=== PATIENT | male | born 1985 | race African-American/Black ===

== ENCOUNTER 2019-11-17 17:01 | Emergency (ER) | payer SELFPAY ==
--- NOTE | 2019-11-17 17:23 | Emergency Department Report ---
HPI - General Chief Complaint: Multiple Trauma Time Seen by Provider: 11/17/19 17:21 - HPI HPI: This is a 34-year-old male who presents to the emergency department with complaint of pain to the head, forehead, and neck, after a large branch from a tree he was cutting fell down and hit him in the head. The patient did have loss of consciousness for an unknown amount of time but he does not feel that it was very long. He denies any vision change, slurred speech, numbness or paresthesias, or any other neurological deficits. No past medical history. He has not taken anything for symptoms prior to presentation. There is a right forehead hematoma and some abrasions. Unknown last tetanus vaccination. ED Past Medical Hx - Past Medical History Previous Medical History?: No - Surgical History Past Surgical History?: No - Medications Home Medications: Home Medications Medication Instructions Recorded Confirmed Last Taken Type HYDROcodone/APAP 5-325 [[place] 1 each PO Q6HR PRN #10 tablet 11/17/19 Unknown Rx 5/325] ED Review of Systems ROS: Stated complaint: HIT IN HEAD WITH TREE BRANCH Other details as noted in HPI Comment: All other systems reviewed and negative Constitutional: denies: chills, fever Eyes: denies: eye pain, vision change ENT: denies: ear pain, throat pain Respiratory: denies: cough, shortness of breath Cardiovascular: denies: chest pain, palpitations Gastrointestinal: denies: abdominal pain, vomiting Musculoskeletal: other (neck pain). denies: back pain, arthralgia Skin: other (abrasions, hematoma). denies: rash Neurological: headache. denies: weakness, numbness, paresthesias Physical Exam - Physical Exam Vital Signs: Vital Signs 11/17/19 17:11 Temperature 99.6 F Pulse Rate 108 H Respiratory 20 Rate Blood Pressure 136/83 [Right] O2 Sat by Pulse 99 Oximetry Physical Exam: GENERAL: The patient is well-developed well-nourished. HENT: Normocephalic. Patient has moist mucous membranes. EYES: Extraocular motions are intact. No nystagmus. NECK: Supple. Trachea is midline. There is both midline and bilateral paraspinal tenderness to palpation. CHEST/LUNGS: Clear to auscultation. There is no respiratory distress noted. HEART/CARDIOVASCULAR: Regular. There is no tachycardia. ABDOMEN: Abdomen is soft, nontender. Patient has normal bowel sounds. SKIN: Skin is warm and dry. There is a non-expanding right sided forehead hematoma is about the size of half of a golf ball. There are some overlying abrasions. No current bleeding or signs/symptoms of infection. NEURO: The patient is awake, alert, and oriented. The patient is cooperative. The patient has no focal neurologic deficits. Normal speech. Cranial nerves II through XII grossly intact. MUSCULOSKELETAL: There is no tenderness or deformity. There is no limitation range of motion. ED Course Vital Signs 11/17/19 17:11 Temperature 99.6 F Pulse Rate 108 H Respiratory 20 Rate Blood Pressure 136/83 [Right] O2 Sat by Pulse 99 Oximetry ED Medical Decision Making - Radiology Data Radiology results: report reviewed CT cervical spine wo con INDICATION / CLINICAL INFORMATION: 34 years Male; trauma, pain. TECHNIQUE: Axial CT images of the cervical spine were obtained. Sagittal and coronal reformatted images were produced. All CT scans at this location are performed using CT dose reduction for ALARA by means of automated exposure control. COMPARISON: None available. FINDINGS: POST-SURGICAL CHANGES: None. ALIGNMENT: Normal cervical lordosis seen without significant scoliosis. VERTEBRAE: No signs of fracture. Vertebral bodies are grossly normal in height throughout. 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 INTRAVERTEBRAL DISCS:Disc spaces are fairly well-maintained throughout. However, mild disc disease is seen at various levels with no dominant herniation appreciated. No definitive signs of significant canal stenosis. PARASPINAL SOFT TISSUES: No significant abnormality. ADDITIONAL FINDINGS: None. IMPRESSION: 1. No signs of acute bony trauma to the cervical spine. CT head/brain wo con INDICATION / CLINICAL INFORMATION: 34 years Male; Trauma, head injury with LOC. TECHNIQUE: Routine CT head without contrast. All CT scans at this location are performed using CT dose reduction for ALARA by means of automated exposure control. COMPARISON: None. FINDINGS: BRAIN / INTRACRANIAL CONTENTS: No acute hemorrhage, mass effect, midline shift, hydrocephalus, or acute, large territorial infarct. No chronic infarct or atrophy appreciated. No significant white matter abnormality. CRANIOCERVICAL JUNCTION: Tonsillar ectopia seen without mass effect on the cervicomedullary junction. ORBITS: No significant abnormality of visualized orbits. SINUSES / MASTOIDS: No significant abnormality in the visualized paranasal sinuses or mastoid air cells. ADDITIONAL FINDINGS: Subcutaneous soft tissue swelling is seen in the right frontal region. No signs of underlying calvarial fracture appreciated. IMPRESSION: 1. No focal mass, intracranial hemorrhage, hydrocephalus, or acute, large territorial infarct. CT facial bones wo con INDICATION / CLINICAL INFORMATION: 34 years Male; facial trauma. TECHNIQUE: Thin cut axial images obtained. Sagittal and coronal reconstructions performed. All CT scans at this location are performed using CT dose reduction for ALARA by means of automated exposure control. COMPARISON: None available. FINDINGS: Soft tissue swelling is seen in the right frontal region. No signs of underlying calvarial fracture seen. Minimal mucosal thickening seen in the ethmoids. Mucosal thickening with chronic changes seen along the floor of both maxillary antra. Poor dentition noted. IMPRESSION: 1. No definitive signs of acute bony facial trauma. - Medical Decision Making This patient presents to the emergency department after he was hit in the head by a falling tree branch. Initially the patient did have loss of consciousness but he has been awake, alert, oriented since he has been in the emergency department. On examination he does not have any focal, motor or sensory defic its and his cranial nerves are intact. He does have a right-sided forehead non- expanding hematoma with overlying abrasions. A CT scan of the cervical spine, head and facial bones were all completed that did not show any acute processes. He has been given a tetanus vaccination booster and some pain medication. His vital signs have been reassuring including being afebrile. The patient has been seen ambulatory in the emergency department and both appears and feels stable. He has been instructed to follow-up with a primary care physician. He is also been given an outpatient referral for neurosurgery regarding his neck pain. He will return to the ER with any worsening of his symptoms or with any acute distress. Critical Care Time: No Critical care attestation.: If time is entered above; I have spent that time in minutes in the direct care of this critically ill patient, excluding procedure time. ED Disposition Clinical Impression: Closed head injury Qualifiers: Encounter type: initial encounter Qualified Code(s): S09.90XA - Unspecified i njury of head, initial encounter Accidentally struck by falling tree Qualifiers: Encounter type: initial encounter Qualified Code(s): W20.8XXA - Other cause of strike by thrown, projected or falling object, initial encounter Traumatic hematoma of forehead Qualifiers: Encounter type: initial encounter Qualified Code(s): S00.83XA - Contusion of other part of head, initial encounter Forehead abrasion Qualifiers: Encounter type: initial encounter Qualified Code(s): S00.81XA - Abrasion of other part of head, initial encounter Disposition: - TO HOME OR SELFCARE Is pt being admited?: No Condition: Stable Instructions: Minor Head Injury (ED), Contusion in Adults (ED), Abrasion (ED) Additional Instructions: Please follow-up with a primary care physician in the next few days. I am giving you a referral for a local neurosurgeon, Dr. Lopez, to follow-up regarding your neck pain. Return to the emergency department with any worsening of your symptoms or with any acute distress. Clean the abrasions with soap and water and then make sure it remains dry. Please make sure you are seen immediately with any signs or symptoms of infection such as increased pain, surrounding redness, increased swelling, development of fever or discharge of pus. You have been prescribed a medication that is sedating and therefore should not be taken prior to driving, working, and responsible for children and in no way should be mixed with alcohol of any quantity. Prescriptions: HYDROcodone/APAP 5-325 [[place] 5/325] 1 each PO Q6HR PRN #10 tablet PRN Reason: Pain Referrals: MARCO A LOPEZ MD [Staff Physician] - 3-5 Days Time of Disposition: 18:48
[2019-11-17] MEDS ORDERED: oxyCODONE /ACETAMINOPHEN 5-325MG TAB PO ONE (18:05)
--- NOTE | 2019-11-17 18:22 | Cat Scan Report ---
CT head/brain wo con INDICATION / CLINICAL INFORMATION: 34 years Male; Trauma, head injury with LOC. TECHNIQUE: Routine CT head without contrast. All CT scans at this location are performed using CT dos e reduction for ALARA by means of automated exposure control. COMPARISON: None. FINDINGS: BRAIN / INTRACRANIAL CONTENTS: No acute hemorrhage, mass effect, midline shift, hydrocephalus, or acu te, large territorial infarct. No chronic infarct or atrophy appreciated. No significant white matter abnormality. CRANIOCERVICAL JUNCTION: Tonsillar ectopia seen without mass effect on the cervicomedullary junction. ORBITS: No significant abnormality of visualized orbits. SINUSES / MASTOIDS: No significant abnormality in the visualized paranasal sinuses or mastoid air letty ls. ADDITIONAL FINDINGS: Subcutaneous soft tissue swelling is seen in the right frontal region. No signs of underlying calvarial fracture appreciated. IMPRESSION: 1. No focal mass, intracranial hemorrhage, hydrocephalus, or acute, large territorial infarct. Signer Name: Jimmie Shin MD, III Signed: 11/17/2019 6:18 PM Workstation Name: [id number]
--- NOTE | 2019-11-17 18:25 | Cat Scan Report ---
CT facial bones wo con INDICATION / CLINICAL INFORMATION: 34 years Male; facial trauma. TECHNIQUE: Thin cut axial images obtained. Sagittal and coronal reconstructions performed. All CT scans at this location are performed using CT dose reduction for ALARA by means of automated exposure control. COMPARISON: None available. FINDINGS: Soft tissue swelling is seen in the right frontal region. No signs of underlying calvarial fracture s een. Minimal mucosal thickening seen in the ethmoids. Mucosal thickening with chronic changes seen along the floor of both maxillary antra. Poor dentition noted. IMPRESSION: 1. No definitive signs of acute bony facial trauma. Signer Name: Jimmie Shin MD, III Signed: 11/17/2019 6:21 PM Workstation Name: [id number]
--- NOTE | 2019-11-17 18:27 | Cat Scan Report ---
CT cervical spine wo con INDICATION / CLINICAL INFORMATION: 34 years Male; trauma, pain. TECHNIQUE: Axial CT images of the cervical spine were obtained. Sagittal and coronal reformatted images were pr oduced. All CT scans at this location are performed using CT dose reduction for ALARA by means of aut omated exposure control. COMPARISON: None available. FINDINGS: POST-SURGICAL CHANGES: None. ALIGNMENT: Normal cervical lordosis seen without significant scoliosis. VERTEBRAE: No signs of fracture. Vertebral bodies are grossly normal in height throughout. 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 INTRAVERTEBRAL DISCS:Disc spaces are fairly well-maintained throughout. However, mild disc disease is seen at various levels with no dominant herniation appreciated. No definitive signs of significant c anal stenosis. PARASPINAL SOFT TISSUES: No significant abnormality. ADDITIONAL FINDINGS: None. IMPRESSION: 1. No signs of acute bony trauma to the cervical spine. Signer Name: Jimmie Shin MD, III Signed: 11/17/2019 6:23 PM Workstation Name: [id number]
[2019-11-17] MEDS ORDERED: DIPHtheria,PERTUSSIS(ACELL),TETANUS VACCINE/PF 0.5 ML VIAL IM ONE (18:43)
[2019-11-17 18:59] VITALS: BP 136/88
== END 2019-11-17 19:10 | disposition home or self-care (01) ==
LOC: ED 17:01
DX: S00.83XA Contusion of other part of head, initial encounter (principal); Z79.899 Other long term (current) drug therapy; W22.8XXA Striking against or struck by other objects, initial encounter; Y93.89 Activity, other specified; Y92.89 Other specified places as the place of occurrence of the external cause; Y99.8 Other external cause status
CPT/HCPCS: 70450; 70486; 72125; 90471; 90715

== ENCOUNTER 2020-07-18 09:32 | Inpatient (IN) | payer OTHER ==
--- NOTE | 2020-07-18 10:58 | XRay Report ---
CHEST PA AND LATERAL VIEWS INDICATION: chest pain. COMPARISON: None. FINDINGS: Support devices: None. Heart: Within normal limits. Lungs/Pleura: No acute pulmonary or pleural findings. IMPRESSION: 1. No acute findings. Signer Name: Haja Pendleton MD Signed: 07/18/2020 10:53 AM Workstation Name: [id number]
--- NOTE | 2020-07-18 11:01 | Event Note ---
ED Screening Note Date of service: 07/18/20 Time: 11:01 ED Screening Note: Patient complains of chest pain, dizziness, and shortness of breath x3 days + Cough Denies nausea vomiting or diarrhea or loss of taste/smell No recent known sick contacts This initial assessment/diagnostic orders/clinical plan/treatment(s) is/are subject to change based on patients health status, clinical progression and re- assessment by fellow clinical providers in the ED. Further treatment and workup at subsequent clinical providers discretion. Patient/guardian urged not to elope from the ED as their condition may be serious if not clinically assessed and managed. Initial orders include: Labs EKG
[2020-07-18] MEDS ORDERED: ASPIRIN 325 MG TAB PO ONE (11:38)
[2020-07-18 11:40] LABS: Basophils % (Auto) 0.2 % (0.0-1.8); Eosinophils # (Auto) 0.1 K/mm3 (0.0-0.4); Eosinophils % (Auto) 0.4 % (0.0-4.3); Hematocrit 45.2 % (35.5-45.6); Hemoglobin 15.5 gm/dl (11.8-15.2); Lymphocytes # (Auto) 2.1 K/mm3 (1.2-5.4); Lymphocytes % (Auto) 14.5 % (13.4-35.0); Mean Corpuscular HGB Conc 34 % (32-34); Mean Corpuscular Volume 88 fl (84-94); Monocytes # (Auto) 1.5 K/mm3 (0.0-0.8); Platelet Count 231 K/mm3 (140-440); Red Blood Count 5.14 M/mm3 (3.65-5.03); Red Cell Distribution Width 12.9 % (13.2-15.2)
--- NOTE | 2020-07-18 11:50 | Emergency Department Report ---
HPI - General Chief Complaint: Chest Pain Time Seen by Provider: 07/18/20 10:59 - HPI HPI: Room 25 The patient is a 35-year-old male present with a chief complaint of chest pain. Patient states for the past 2 days he has had left-sided chest pain described as a constant "holding" pain. Patient states his pain is associated with shortness of breath and nausea without vomiting. Patient denies diaphoresis. Patient admits to pleurisy but denies any recent flights or long car trips. Patient denies any coughs currently ED Past Medical Hx - Past Medical History Previous Medical History?: No - Surgical History Past Surgical History?: No - Family History Family history: no significant - Social History Smoking Status: Former Smoker (None x2 weeks) Substance Use Type: None - Medications Home Medications: Home Medications Medication Instructions Recorded Confirmed Last Taken Type HYDROcodone/APAP 5-325 [[place] 1 each PO Q6HR PRN #10 tablet 11/17/19 07/18/20 Unknown Rx 5/325] ED Review of Systems ROS: Stated complaint: HEADACHE, DIZZINESS, N/V Other details as noted in HPI Constitutional: denies: fever Eyes: denies: eye pain ENT: denies: throat pain Respiratory: cough, shortness of breath Cardiovascular: chest pain Endocrine: no symptoms reported Gastrointestinal: nausea. denies: vomiting Genitourinary: denies: dysuria Musculoskeletal: denies: back pain Skin: denies: lesions Neurological: denies: headache Physical Exam - Physical Exam Vital Signs: Vital Signs 07/18/20 10:24 Temperature 98.6 F Pulse Rate 102 H Respiratory 18 Rate Blood Pressure 123/83 O2 Sat by Pulse 95 Oximetry Physical Exam: GENERAL: The patient is well-developed well-nourished male lying on stretcher not appearing to be in acute distress. [] HEENT: Normocephalic. Atraumatic. Extraocular motions are intact. Patient has moist mucous membranes. NECK: Supple. Trachea midline CHEST/LUNGS: Clear to auscultation. There is no respiratory distress noted. HEART/CARDIOVASCULAR: Regular. There is no tachycardia. There is no gallop rub or murmur. ABDOMEN: Abdomen is soft, nontender. Patient has normal bowel sounds. There is no abdominal distention. SKIN: There is no rash. There is no edema. There is no diaphoresis. NEURO: The patient is awake, alert, and oriented. The patient is cooperative. The patient has no focal neurologic deficits. The patient has normal speech MUSCULOSKELETAL: There is no evidence of acute injury. ED Course Vital Signs 07/18/20 10:24 Temperature 98.6 F Pulse Rate 102 H Respiratory 18 Rate Blood Pressure 123/83 O2 Sat by Pulse 95 Oximetry - Consultations Consultation #1: 07/18/20 10:38 EKG sent to and discussed with automobile racer Dr. Diaz ED Medical Decision Making - Lab Data Result diagrams: 07/18/20 11:00 07/18/20 11:00 Laboratory Tests 07/18/20 07/18/20 07/18/20 11:00 11:00 11:03 WBC 14.8 H RBC 5.14 H Hgb 15.5 H Hct 45.2 MCV 88 MCH 30 MCHC 34 RDW 12.9 L Plt Count 231 Lymph % (Auto) 14.5 [place] % (Auto) 10.0 H Eos % (Auto) 0.4 Baso % (Auto) 0.2 Lymph # (Auto) 2.1 [place] # (Auto) 1.5 H Eos # (Auto) 0.1 Baso # (Auto) 0.0 Seg Neutrophils % 74.9 H Seg Neutrophils # 11.1 H Sodium 128 L Potassium 4.2 Chloride 90.9 L Carbon Dioxide 26 Anion Gap 15 BUN 17 Creatinine 0.7 L Estimated GFR > 60 BUN/Creatinine Ratio 24 Glucose 434 H Calcium 8.8 Total Bilirubin 0.90 AST 88 H ALT 116 H Alkaline Phosphatase 161 H Troponin T 1.660 H* NT-Pro-B Natriuret Pep 3611 H Total Protein 7.0 Albumin 3.4 L Albumin/Globulin Ratio 0.9 - EKG Data -: EKG Interpreted by Me EKG shows normal: sinus rhythm Rate: normal - EKG Data When compared to previous EKG there are: previous EKG unavailable Interpretation: nonspecific ST-T wave you - Radiology Data Radiology results: report reviewed (Chest x-ray), image reviewed (Chest x-ray) interpreted by me: Chest x-ray-no focal infiltrates, no pneumothorax. No foreign body seen [facility] [address] [place] [address] XRay Report Signed Patient: AMGO GILLETTE MR#: [id number] : 1985 Acct:[id number] Age/Sex: 35 / M ADM Date: 07/18/20 Loc: ED Attending Dr: Ordering Physician: ED MD MAURO Date of Service: 07/18/20 Procedure(s): XR chest routine 2V Accession Number(s): [id number] cc: ED MD MAURO Fluoro Time In Minutes: CHEST PA AND LATERAL VIEWS INDICATION: chest pain. COMPARISON: None. FINDINGS: S upport devices: None. Heart: Within normal limits. Lungs/Pleura: No acute pulmonary or pleural findings. IMPRESSION: 1. No acute findings. Signer Name: Haja Pendleton MD Signed: 07/18/2020 10:53 AM Workstation Name: [id number] Transcribed By: SW Dictated By: Haja Pendleton MD Electronically Authenticated By: Haja Pendleton MD Signed Date/Time: 07/18/20 105 DD/ 1053 TD/TT: Print Cancel - Differential Diagnosis ACS, pericarditis, GERD, PE, bronchitis Critical care attestation.: If time is entered above; I have spent that time in minutes in the direct care of this critically ill patient, excluding procedure time. ED Disposition Clinical Impression: Chest pain, Elevated troponin Disposition: -09 OP ADMIT IP TO THIS HOSP Is pt being admited?: Yes Does the pt Need Aspirin: Yes Condition: Fair Instructions: Nonspecific Chest Pain, Adult Referrals: PRIMARY CARE, [Primary Care Provider] - 3-5 Days Time of Disposition: 13:51 (Hospitalist notified (Dr. Parker))
[2020-07-18 11:55] LABS: Alanine Aminotransferase 116 units/L (7-56); Albumin 3.4 g/dL (3.9-5); Blood Urea Nitrogen 17 mg/dL (9-20); Calcium 8.8 mg/dL (8.4-10.2); Hemolysis Index 7
[2020-07-18 12:06] LABS: BUN/Creatinine Ratio 24
[2020-07-18] MEDS ORDERED: NITROGLYCERIN 2% OINT 1 GM TP ONE (12:23)
[2020-07-18] MEDS ORDERED: fentaNYL 100 MCG/2 ML INJ IV ONE (13:20)
[2020-07-18] MEDS ORDERED: ONDANSETRON 4 MG/2 ML INJ IV ONE (13:20)
[2020-07-18] MEDS ORDERED: ASPIRIN EC 325 MG TAB PO NR (13:32)
[2020-07-18] MEDS ORDERED: ACETAMINOPHEN 325 MG TAB PO PRN (13:51)
[2020-07-18] MEDS ORDERED: MORPHINE 2 MG/1 ML INJ IV PRN (13:51)
[2020-07-18] MEDS ORDERED: ONDANSETRON 4 MG/2 ML INJ IV PRN (13:51)
--- NOTE | 2020-07-18 13:55 | History and Physical Report ---
History of Present Illness Chief complaint: My chest is hurting History of present illness: 35 YO Male with no PMH presents to ED for evaluation. Pt reports " my chest has been hurting". Patient states that he had experienced pain in his chest over the past 2 days with persistent symptoms over the same timeframe. Patient states that pain is 5/10, constant, worsened with deep breathing and inspiration, not worsened with exertion, not relieved with rest. Patient transported to [facility] via private vehicle for further care and evaluation of the aforementioned symptoms. The patient was seen and evaluated in the emergency department. All lab and imaging studies reviewed. Patient underwent EKG which showed diffuse nonspecific ST changes as well as elevated troponin. Patient lab findings consistent with non-ST elevation TN. Patient also found to have symptoms consistent with diastolic CHF, hyponatremia, as well as systemic plantar response syndrome. Cardiology team consulted in ED. Patient denies fever, chills, chest pain, palpitation, productive cough, skin rash, recent ill contacts, or known exposure to COVID-19. No prior admission for review. No medication listed at time of admission for reconciliation. Patient is pending cardiac cath as per cardiology team. Past History Past Medical History: No medical history, other (Reviewed) Past Surgical History: No surgical history, Other (Reviewed) Social history: single. denies: smoking, alcohol abuse, prescription drug abuse Family history: hypertension Medications and Allergies Allergies Allergy/AdvReac Type Severity Reaction Status Date / Time No Known Allergies Allergy Verified 07/18/20 10:26 Home Medications Medication Instructions Recorded Confirmed Last Taken Type HYDROcodone/APAP 5-325 [[place] 1 each PO Q6HR PRN #10 tablet 11/17/19 07/18/20 Unknown Rx 5/325] Active Meds: Active Medications Acetaminophen (Acetaminophen 325 Mg Tab) 650 mg PO Q4H PRN PRN Reason: Pain MILD(1-3)/Fever >100.5/BRAR Aspirin (Aspirin Ec 325 Mg Tab) 325 mg PO ONCE NR Stop: 07/18/20 14:00 Ondansetron HCl (Ondansetron 4 Mg/2 Ml Inj) 4 mg IV Q8H PRN PRN Reason: Nausea And Vomiting Sodium Chloride (Sodium Chloride 0.9% 10 Ml Flush Syringe) 10 ml IV BID MARY Sodium Chloride (Sodium Chloride 0.9% 10 Ml Flush Syringe) 10 ml IV PRN PRN PRN Reason: LINE FLUSH Review of Systems Constitutional: no weight loss, no weight gain, no fever, no chills Ears, nose, mouth and throat: no ear pain, no ear discharge, no tinnitis, no decreased hearing Cardiovascular: chest pain, no orthopnea, no palpitations, no rapid/irregular heart beat, no edema Respiratory: no cough, no cough with sputum, no excessive sputum Gastrointestinal: no nausea, no vomiting, no diarrhea, no constipation Genitourinary Male: no hematuria, no flank pain, no discharge, no urinary frequency, no urinary hesitancy Rectal: no pain, no incontinence, no bleeding Musculoskeletal: no neck stiffness, no neck pain, no shooting arm pain, no arm numbness/tingling, no low back pain Integumentary: no rash, no pruritis, no redness, no sores, no wounds Neurological: no paralysis, no weakness, no parathesias, no numbness Psychiatric: no memory loss, no change in sleep habits, no sleep disturbances, no insomnia, no hypersomnia Endocrine: no cold intolerance, no heat intolerance, no polyphagia, no excessive thirst, no polydipsia Hematologic/Lymphatic: no easy bruising, no easy bleeding, no lymphadenopathy, no lymphedema Allergic/Immunologic: no urticaria, no allergic rhinitis, no persistent infections Exam - Constitutional Vitals: Temp Pulse Resp BP Pulse Ox 98.6 F 102 H 18 123/83 95 07/18/20 10:24 07/18/20 10:24 07/18/20 10:24 07/18/20 10:24 07/18/20 10:24 General appearance: Present: mild distress, obese - EENT Eyes: Present: PERRL ENT: hearing intact, clear oral mucosa - Neck Neck: Present: supple, normal ROM - Respiratory Respiratory effort: normal Respiratory: bilateral: CTA - Cardiovascular Heart Sounds: Present: S1 & S2. Absent: rub, click - Extremities Extremities: pulses symmetrical, No edema Peripheral Pulses: within normal limits - Abdominal General gastrointestinal: Present: soft, non-tender, non-distended, normal bowel sounds Male genitourinary: Present: normal - Integumentary Integumentary: Present: clear, warm, dry - Musculoskeletal Musculoskeletal: gait normal, strength equal bilaterally - Psychiatric Psychiatric: appropriate mood/affect, intact judgment & insight - Neurologic Neurologic: CNII-XII intact, moves all extremities HEART Score - HEART Score Troponin: Troponin T 1.660 ng/mL (0.00-0.029) H* 07/18/20 11:00 Results - Labs CBC & Chem 7: 07/18/20 13:45 07/18/20 13:45 Labs: Abnormal lab results 07/18/20 07/18/20 07/18/20 Range/Units 11:00 11:00 11:03 WBC 14.8 H (4.5-11.0) K/mm3 RBC 5.14 H (3.65-5.03) M/mm3 Hgb 15.5 H (11.8-15.2) gm/dl RDW 12.9 L (13.2-15.2) % [place] % (Auto) 10.0 H (0.0-7.3) % [place] # (Auto) 1.5 H (0.0-0.8) K/mm3 Seg Neutrophils % 74.9 H (40.0-70.0) % Seg Neutrophils # 11.1 H (1.8-7.7) K/mm3 Sodium 128 L (137-145) mmol/L Chloride 90.9 L (98-107) mmol/L Creatinine 0.7 L (0.8-1.3) mg/dL Glucose 434 H (75-100) mg/dL AST 88 H (5-40) units/L ALT 116 H (7-56) units/L Alkaline Phosphatase 161 H (35-129) units/L Troponin T 1.660 H* (0.00-0.029) ng/mL NT-Pro-B Natriuret Pep 3611 H (0-450) pg/mL Albumin 3.4 L (3.9-5) g/dL Assessment and Plan - Patient Problems (1) Non-STEMI (non-ST elevated myocardial infarction) Current Visit: Yes Status: Acute Plan to address problem: Patient initiated on heparin drip in the emergency department, team consulted, patient pending cardiac catheterization as per cardiology team. (2) Diastolic CHF Current Visit: Yes Status: Acute Qualifiers: Heart failure chronicity: acute Qualified Code(s): I50.31 - Acute diastolic (congestive) heart failure Plan to address problem: Strict I/O, monitor urine output every shift, daily weight, afterload reduction, cardiology team consulted. Further care and evaluation as per cardiology team. (3) Hyponatremia Current Visit: Yes Status: Acute Plan to address problem: IV fluid resuscitation therapy as clinically indicated, supportive care, BMP, repeat BMP in a.m. (4) Elevated liver function tests Current Visit: Yes Status: Acute Plan to address problem: Hepatitis panel, supportive care, (5) Systemic inflammatory response syndrome Current Visit: Yes Status: Acute Plan to address problem: Supportive care, CBC, CMP, empiric IV antibiotic therapy x1 dose, repeat CBC in a.m. (6) Chest pain Current Visit: Yes Status: Acute Plan to address problem: Serial cardiac enzymes, EKG, remote telemetry, cardiology team consulted. (7) DVT prophylaxis Current Visit: Yes Status: Acute Plan to address problem: SCD to bilateral lower extremities while in bed, continue therapeutic anticoagulation.
--- NOTE | 2020-07-18 14:05 | Consultation ---
History of Present Illness Consult date: 07/18/20 Consult reason: chest pain History of present illness: This patient is a 35-year-old male with no significant history not followed by primary care. Previously unknown to our practice. Patient presents to [facility] emergency room complaining of chest pain x2 days. Chest pain is described as "holding" pain worse with inspiration no palliative factors centered over the left chest, not exacerbated with palpation. Patient denies any dizziness or weakness shortness of breath, abdominal pain, nausea vomiting diarrhea, recent illness or exposures. Twelve-lead EKG shows diffuse ST changes nonspecific. Troponins are elevated: 1.6x1. Preliminary echo results indicate ejection fraction of 30%. BUN is noted to be elevated on admission. D-dimer is elevated. Chest x-ray reviewed no acute findings. Patient is not followed by cardiology or primary care. Patient denies any previous history of chest pain heart attack stroke hypertension diabetes or any other known pathologies. Patient takes no daily medicines. Patient states he recently quit smoking within the last year. Previously he has been 1 pack a day for approximately the last 20 years. 20 pack years. Patient denies any EtOH or other substance use. No prior cardiac echo or ischemic evaluations are available for comparison. Patient denies any previous surgeries or hospitalizations. Past History Past Medical History: other (See HPI) Medications and Allergies Allergies Allergy/AdvReac Type Severity Reaction Status Date / Time No Known Allergies Allergy Verified 07/18/20 10:26 Home Medications Medication Instructions Recorded Confirmed Last Taken Type HYDROcodone/APAP 5-325 [[place] 1 each PO Q6HR PRN #10 tablet 11/17/19 07/18/20 Unknown Rx 5/325] Active Meds: Active Medications Acetaminophen (Acetaminophen 325 Mg Tab) 650 mg PO Q4H PRN PRN Reason: Pain MILD(1-3)/Fever >100.5/BRAR Morphine Sulfate (Morphine 2 Mg/1 Ml Inj) 1 mg IV Q6H PRN PRN Reason: Pain, Moderate (4-6) Ondansetron HCl (Ondansetron 4 Mg/2 Ml Inj) 4 mg IV Q8H PRN PRN Reason: Nausea And Vomiting Sodium Chloride (Sodium Chloride 0.9% 10 Ml Flush Syringe) 10 ml IV BID MARY Sodium Chloride (Sodium Chloride 0.9% 10 Ml Flush Syringe) 10 ml IV PRN PRN PRN Reason: LINE FLUSH Review of Systems Constitutional: weakness, no weight loss, no weight gain, no fever, no chills, no sweats Ears, nose, mouth and throat: no ear pain, no ear discharge, no nose pain, no nasal congestion, no nasal discharge Cardiovascular: chest pain, no orthopnea, no palpitations, no rapid/irregular heart beat, no edema, no syncope Respiratory: shortness of breath Gastrointestinal: no abdominal pain, no nausea, no vomiting, no diarrhea Genitourinary Male: no flank pain Musculoskeletal: no neck stiffness, no neck pain, no shooting arm pain, no arm numbness/tingling, no low back pain, no shooting leg pain Integumentary: no rash, no pruritis, no redness, no sores, no wounds, no jaundice Neurological: no head injury, no paralysis, no weakness, no parathesias, no numbness, no tingling, no seizures, no syncope Psychiatric: no anxiety Endocrine: no cold intolerance, no heat intolerance Hematologic/Lymphatic: no easy bruising, no easy bleeding Allergic/Immunologic: no urticaria Physical Examination Last Vital Signs Temp 98.6 F 07/18/20 10:24 Pulse 102 H 07/18/20 10:24 Resp 18 07/18/20 10:24 BP 123/83 07/18/20 10:24 Pulse Ox 95 07/18/20 10:24 General appearance: mild distress HEENT: Positive: PERRL, Normocephaly, Mucus Membranes Moist Neck: Positive: neck supple, trachea midline Cardiac: Positive: Reg Rate and Rhythm, irregularly irregular, S1/S2 Lungs: Positive: Normal Exam, clear to auscultation, Normal Breath Sounds Results 07/18/20 13:45 07/18/20 13:45 Cardiac Enzymes 07/18/20 Range/Units 11:00 AST 88 H (5-40) units/L CBC 07/18/20 Range/Units 11:00 WBC 14.8 H (4.5-11.0) K/mm3 RBC 5.14 H (3.65-5.03) M/mm3 Hgb 15.5 H (11.8-15.2) gm/dl Hct 45.2 (35.5-45.6) % Plt Count 231 (140-440) K/mm3 Lymph # (Auto) 2.1 (1.2-5.4) K/mm3 [place] # (Auto) 1.5 H (0.0-0.8) K/mm3 Eos # (Auto) 0.1 (0.0-0.4) K/mm3 Baso # (Auto) 0.0 (0.0-0.1) K/mm3 Comprehensive Metabolic Panel 07/18/20 Range/Units 11:00 Sodium 128 L (137-145) mmol/L Potassium 4.2 (3.6-5.0) mmol/L Chloride 90.9 L (98-107) mmol/L Carbon Dioxide 26 (22-30) mmol/L BUN 17 (9-20) mg/dL Creatinine 0.7 L (0.8-1.3) mg/dL Glucose 434 H (75-100) mg/dL Calcium 8.8 (8.4-10.2) mg/dL AST 88 H (5-40) units/L ALT 116 H (7-56) units/L Alkaline Phosphatase 161 H (35-129) units/L Total Protein 7.0 (6.3-8.2) g/dL Albumin 3.4 L (3.9-5) g/dL - Imaging and Cardiology Echo: pending Cardiac cath: pending EKG: report reviewed, image reviewed EKG interpretations - Telemetry EKG Rhythm: Sinus Rhythm - EKG Sinus rhythms and dysrhythmias: sinus rhythm Assessment and Plan NSTEMI suspect type I Give aspirin 325 mg once p.o. Critical lab value: elevated INR of 17. Renal and liver indices are normal. No heparin drip at this time. Stat redraw to confirm value has been ordered. If normal will resume heparin drip. If INR remains elevated we will not proceed with LHC this evening. Patient will be scheduled for LHC this evening. Procedure discussed with patient. Risk and potential benefits reviewed. Patient is agreeable to proceed at this time. N.p.o. now. Plan discussed with ER provider. Cardiomyopathy Preliminary echocardiogram results show reduced EF estimated 30% with inferior wall hypokinesis. Official read pending. Patient would benefit from beta-louise, MASTER inhibitor/ARB in the setting of new cardiomyopathy with reduced ejection fraction. We will plan to start these medications once LHC is complete. Heart failure reduced ejection fraction BNP is noted to be elevated on admission. Echo read is pending. No extremity edema is noted. Breath sounds are clear to auscultation. Continue to monitor labs. Elevated D-dimer Pulmonary thromboembolism cannot be excluded via PERC rule. Elevated D-dimer with tachycardia and chest pain may be indication for follow-up testing (CTA chest/VQ scan) pending [facility] results. No AC in setting of elevated INR. DVT prophylaxis No anticoagulation in setting of elevated INR This patient was seen in conjunction with Dr. Diaz who agrees with this assessment and plan of care - Patient Problems (1) Non-STEMI (non-ST elevated myocardial infarction) Current Visit: Yes Status: Acute (2) Cardiomyopathy Current Visit: Yes Status: Acute (3) HFrEF (heart failure with reduced ejection fraction) Current Visit: Yes Status: Acute (4) DVT prophylaxis Current Visit: Yes Status: Acute (5) History of tobacco use Current Visit: Yes Status: Chronic
[2020-07-18] MEDS ORDERED: HEPARIN 10,000 UNITS/10 ML VIAL IV ONE (14:12)
[2020-07-18 14:24] LABS: Basophils # (Auto) 0.1 K/mm3 (0.0-0.1); Basophils % (Auto) 0.3 % (0.0-1.8); Eosinophils # (Auto) 0.1 K/mm3 (0.0-0.4); Eosinophils % (Auto) 0.6 % (0.0-4.3); Hematocrit 43.9 % (35.5-45.6); Hemoglobin 15.6 gm/dl (11.8-15.2); Lymphocytes # (Auto) 1.9 K/mm3 (1.2-5.4); Lymphocytes % (Auto) 11.8 % (13.4-35.0); Mean Corpuscular HGB Conc 35 % (32-34); Mean Corpuscular Volume 88 fl (84-94); Monocytes # (Auto) 1.7 K/mm3 (0.0-0.8); Monocytes % (Auto) 10.7 % (0.0-7.3); Platelet Count 222 K/mm3 (140-440); Red Blood Count 5.02 M/mm3 (3.65-5.03); Red Cell Distribution Width 12.8 % (13.2-15.2)
[2020-07-18 14:44] LABS: Blood Urea Nitrogen 18 mg/dL (9-20); Calcium 8.8 mg/dL (8.4-10.2); Hemolysis Index 6
[2020-07-18 14:56] LABS: INR > 17.00 (0.87-1.13)
[2020-07-18] MEDS ORDERED: HEPARIN/ 0.45% NACL DRIP 25,000 UNIT/500 ML BAG IV SCH (15:00)
[2020-07-18 15:42] LABS: Chol/HDL Ratio 1.88 %; HDL Cholesterol 71 mg/dL (40-59); LDL Cholesterol,Direct 54 mg/dL (50-130)
[2020-07-18 16:01] LABS: BUN/Creatinine Ratio 26
[2020-07-18 16:18] LABS: INR 1.15 (0.87-1.13)
[2020-07-18] MEDS ORDERED: MIDAZOLAM 2 MG/2 ML INJ ONE (16:22)
[2020-07-18] MEDS ORDERED: HEPARIN/NS 5000 UNIT/500ML 1,000 ML IR ONE (16:22)
[2020-07-18] MEDS ORDERED: fentaNYL 100 MCG/2 ML INJ ONE (16:23)
[2020-07-18] MEDS ORDERED: LIDOCAINE (2%) 20 MG/1 ML VIAL 20 ML MDV INFILTRATI ONE (16:24)
[2020-07-18] MEDS ORDERED: NITROGLYCERIN SYRINGE 3 ML ONE (16:24)
[2020-07-18] MEDS ORDERED: VERAPAMIL 5 MG/2 ML INJ ONE (16:24)
[2020-07-18] MEDS ORDERED: SODIUM CHLORIDE 0.9% 500 ML 500 ML ONE (16:43)
[2020-07-18 16:46] LABS: Albumin 3.5 g/dL (3.9-5); Bilirubin,Direct 0.2 mg/dL (0-0.2)
[2020-07-18] MEDS ORDERED: METOPROLOL TARTRATE 5 MG/5 ML INJ IV ONE (17:01)
[2020-07-18] MEDS: HEPARIN 10,000 UNITS/10 ML VIAL ONE ×2 (17:05→17:22)
[2020-07-18] MEDS ORDERED: NITROGLYCERIN 600 MCG/3 ML SYRINGE ART-SHEATH ONE (17:05)
[2020-07-18] MEDS: PHENYLEPHRINE/NS 1,000 MCG/10 ML SYRINGE (OR USE) IV ONE ×2 (17:12→17:30)
[2020-07-18] MEDS ORDERED: HEPARIN 10,000 UNITS/10 ML VIAL ONE (17:26)
[2020-07-18] MEDS ORDERED: NITROGLYCERIN 600 MCG/3 ML SYRINGE INTRA-CORO ONE (17:26)
[2020-07-18] MEDS ORDERED: ALUM-MAG HYDROXIDE-SIMETHICONE 200-200-20MG/5ML ORAL LIQD 30 ML ONE (17:34)
[2020-07-18] MEDS ORDERED: CLOPIDOGREL 300 MG TAB ONE (17:34)
[2020-07-18] MEDS: METOPROLOL TARTRATE 25 MG TAB PO SCH ×2 (20:53→22:00)
[2020-07-18] MEDS ORDERED: METOPROLOL TARTRATE 50 MG TAB PO SCH (22:00)
--- NOTE | 2020-07-18 22:25 | Cardiac Catherization Report ---
DATE OF SERVICE: 07/18/2020 PROCEDURE: Left heart catheterization, percutaneous coronary intervention and intravascular ultrasound done on 07/18/2020 CLINICAL INFORMATION: This is a 35-year-old male with history of smoking, presents with two days of chest pain with deep inspiration. EKG showed biphasic T waves in the inferior leads. Abnormal troponin. Echocardiogram shows moderate to severe LV dysfunction with hypokinesis of the inferior wall. The patient was brought to the catholic priest. The patient was done with moderate sedation started 1703, finished at 1740 which is 37 minutes of moderate sedation. DESCRIPTION OF PROCEDURE: Procedure was done via the right radial artery, sterile technique, local anesthesia. A 6 [place] radial sheath was inserted. Left system, engaged with an AL1. Left main is a large vena cava was patent with mild luminal irregularities. LAD is a small to medium caliber vessel proximally was patent with mild luminal irregularities. Diagonal 1 is a small caliber vessel was patent. Then, diagonal 2 is a small caliber vessel, patent with mild luminal irregularities, but mid to distal has diffuse disease, 50% of a small caliber vessel. Diagonal 3 is a small caliber was patent. Circumflex proximally medium caliber patent with mild luminal irregularitis, then goes into a small to medium caliber OM1 that has diffuse disease with areas of stenosis around 20-30% after OM1, the circumflex has a 50% lesion and then goes into a small OM2 that has a proximal 95% less than 2 mm vessel. RCA engaged with JR4 catheter. It is a dominant vessel, diffusely diseased proximally, mid 30%-40%, mid focal 95%, distal 30%-40%, small long PDA and PLV diffuse disease. There is a 50-60%. LV gram done in BIJAL and CARRILLO shows moderate LV dysfunction, EF 35% with inferior wall hypokinesis. LVEDP 21 mmhg, LV is 124, aortic is 123/80, no gradient across the aortic valve on pullback. 1. Percutaneous coronary intervention RCA engaged with a JR4 guiding catheter crossed with distal PDA with a short [place] wire. 2. Predilated with 2.5 x 12 balloon x2 inflations at 12 atmospheres. 3. Intravascular ultrasound showed diffuse disease from proximally and distally with a reference vessel of 3.5-4.0 mm in the mid section. 4. Stent to the mid section with a drug-eluting Resolute [place] 3.5 x 22 mm inflated at 15 atmospheres. Excellent angiographic good stent apposition and expansion noted. No dissection or perforation noted. Improved flow and size in the distal vessels. 5. Remove coronary wire. Multiple angiograms and MY 3 flow reduced stenois 90% down to 0%. 6. 6-[place] guiding catheter, taken over a guidewire. A 6-[place] radial sheath was discontinued. Radial band applied. No hematoma. No bleeding. SUMMARY: 1. Successful PCI of the mid RCA with a drug-eluting Resolute [place] 3.5 x 22. RCA proximal 30%-40%, distal 30%-40%, small PDA and PLV with long vessels. There is diffuse disease of 50%. 2. Left main, patent. Mild luminal irregularities. LAD proximal patent, mild luminal irregularities. Diagonal 1 mild luminal irregularitis, small vessesl. Diagonal 2 small vessel with mild luminal irregularities. Mid to distal LAD diffuse disease, 50-60%. Diagonal 3 small caliber vessel, patent with mild luminal irregularities. Circumflex is patent, goes into an OM1 small to medium caliber vessel that has mid 30%, but patent with mild luminal irregularities.. Circumflex after OM1 has a 50% lesion and then OM2 is a small vessel, proximal 95% with moderate LV dysfunction, EF 35% with inferior wall hypokinesis. The patient was loaded with Plavix, medical therapy. Discussed this in detail with the patient and the patient's family. TID: [id number] RECEIPT: [id number] LEILA/MAULIK
[2020-07-19 05:33] LABS: Blood Urea Nitrogen 19 mg/dL (9-20); Calcium 8.4 mg/dL (8.4-10.2); Hemolysis Index 5
[2020-07-19 05:48] LABS: BUN/Creatinine Ratio 27
[2020-07-19] MEDS ORDERED: DEXTROSE 50% IN WATER (25GM) 50 ML SYRINGE IV PRN (08:30)
--- NOTE | 2020-07-19 10:29 | Progress Note ---
Assessment and Plan Assessment and plan: #NSTEMI Status post left heart catheterization with stenting of the RCA Continue aspirin and Plavix Statins Metoprolol Cardiology recommendations appreciated #Hyperglycemia Denies any history of diabetes Check hemoglobin A1c Started on Lantus and lispro Needs primary care follow-up at discharge #Elevated liver function tests Monitor LFTs Check CMP in a.m. #Hyponatremia Likely pseudohyponatremia due to negative blood glucose. Could also be due to fluid overload This seems to be improving so we will continue to monitor #HFrEF Continue metoprolol, ACEI Aldactone Cardiology follow-up at discharge DVT prophylaxis-Heparin products History Interval history: 35 YO Male with no PMH presents to ED for evaluation. Pt reports " my chest has been hurting". Patient states that he had experienced pain in his chest over the past 2 days with persistent symptoms over the same timeframe. Patient states that pain is 5/10, constant, worsened with deep breathing and inspiration, not worsened with exertion, not relieved with rest. Patient transported to [facility] via private vehicle for further care and evaluation of the aforementioned symptoms. The patient was seen and evaluated in the emergency department. All lab and imaging studies reviewed. Patient underwent EKG which showed diffuse nonspecific ST changes as well as elevated troponin. Patient lab findings consistent with non-ST elevation [place]. Patient also found to have sym ptoms consistent with diastolic CHF, hyponatremia, as well as systemic plantar response syndrome. Cardiology team consulted in ED. Patient denies fever, chills, chest pain, palpitation, productive cough, skin rash, recent ill contacts, or known exposure to COVID-19. No prior admission for review. No medication listed at time of admission for reconciliation. Patient is pending cardiac cath as per cardiology team. Hospital course Patient left heart catheterization he had PCI of the mid RCA with drug-eluting stents. 07/19. Patient is now on aspirin and Plavix. 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 Patient seen and examined at bedside this morning, he denies any chest pain. He feels great. Reviewed his vitals overnight. Noted to be hypoxic at night. Suspect patient has TSERING. He will be referred to pulmonology for sleep study Hospitalist Physical - Physical exam Narrative exam: VITAL SIGNS: Reviewed. GENERAL: Awake HEAD: No signs of head trauma. EYES: Pupils are equal. Extraocular motions intact. MOUTH: Oropharynx is normal. NECK: No adenopathy, no JVD. CHEST: Chest with diminished breath sounds bilaterally. No wheezes, rales, or rhonchi. CARDIAC: normal S1 and S2, without murmurs, gallops, or rubs. ABDOMEN: Soft, non tender and non distended. No rebound or guarding, and no masses palpated. Bowel Sounds normal. MUSCULOSKELETAL: No edema NEUROLOGIC EXAM: Alert and oriented x3. No focal neurologic deficits SKIN: No obvious lesions - Constitutional Vitals: Temp Pulse Resp BP Pulse Ox 99.4 F 107 H 18 107/63 82 L 07/19/20 03:27 07/19/20 03:24 07/19/20 03:27 07/19/20 03:27 07/19/20 03:24 HEART Score - HEART Score Troponin: Troponin T 1.550 ng/mL (0.00-0.029) H* 07/19/20 04:29 Results - Labs CBC & Chem 7: 07/18/20 13:45 07/19/20 04:29 Labs: Laboratory Last Values WBC 15.9 K/mm3 (4.5-11.0) H 07/18/20 13:45 RBC 5.02 M/mm3 (3.65-5.03) 07/18/20 13:45 Hgb 15.6 gm/dl (11.8-15.2) H 07/18/20 13:45 Hct 43.9 % (35.5-45.6) 07/18/20 13:45 MCV 88 fl (84-94) 07/18/20 13:45 MCH 31 pg (28-32) 07/18/20 13:45 MCHC 35 % (32-34) H 07/18/20 13:45 RDW 12.8 % (13.2-15.2) L 07/18/20 13:45 Plt Count 222 K/mm3 (140-440) 07/18/20 13:45 Lymph % (Auto) 11.8 % (13.4-35.0) L 07/18/20 13:45 [place] % (Auto) 10.7 % (0.0-7.3) H 07/18/20 13:45 Eos % (Auto) 0.6 % (0.0-4.3) 07/18/20 13:45 Baso % (Auto) 0.3 % (0.0-1.8) 07/18/20 13:45 Lymph # (Auto) 1.9 K/mm3 (1.2-5.4) 07/18/20 13:45 [place] # (Auto) 1.7 K/mm3 (0.0-0.8) H 07/18/20 13:45 Eos # (Auto) 0.1 K/mm3 (0.0-0.4) 07/18/20 13:45 Baso # (Auto) 0.1 K/mm3 (0.0-0.1) 07/18/20 13:45 Seg Neutrophils % 76.6 % (40.0-70.0) H 07/18/20 13:45 Seg Neutrophils # 12.2 K/mm3 (1.8-7.7) H 07/18/20 13:45 PT 14.5 Sec. (12.2-14.9) 07/18/20 15:15 INR 1.15 (0.87-1.13) H 07/18/20 15:15 D-Dimer 379.1 ng/mlDDU (0-234) H 07/18/20 13:45 Sodium 130 mmol/L (137-145) L 07/19/20 04:29 Potassium 4.2 mmol/L (3.6-5.0) 07/19/20 04:29 Chloride 93.1 mmol/L (98-107) L 07/19/20 04:29 Carbon Dioxide 23 mmol/L (22-30) 07/19/20 04:29 Anion Gap 18 mmol/L 07/19/20 04:29 BUN 19 mg/dL (9-20) 07/19/20 04:29 Creatinine 0.7 mg/dL (0.8-1.3) L 07/19/20 04:29 Estimated GFR > 60 ml/min 07/19/20 04:29 BUN/Creatinine Ratio 27 % 07/19/20 04:29 Glucose 329 mg/dL (75-100) H 07/19/20 04:29 Calcium 8.4 mg/dL (8.4-10.2) 07/19/20 04:29 Total Bilirubin 0.60 mg/dL (0.1-1.2) 07/18/20 15:15 Direct Bilirubin 0.2 mg/dL (0-0.2) 07/18/20 15:15 Indirect Bilirubin 0.4 mg/dL 07/18/20 15:15 AST 73 units/L (5-40) H 07/18/20 15:15 ALT 104 units/L (7-56) H 07/18/20 15:15 Alkaline Phosphatase 166 units/L (35-129) H 07/18/20 15:15 Troponin T 1.550 ng/mL (0.00-0.029) H* 07/19/20 04:29 NT-Pro-B Natriuret Pep 3611 pg/mL (0-450) H 07/18/20 11:03 Total Protein 6.2 g/dL (6.3-8.2) L 07/18/20 15:15 Albumin 3.5 g/dL (3.9-5) L 07/18/20 15:15 Albumin/Globulin Ratio 1.3 % 07/18/20 15:15 Triglycerides 119 mg/dL (2-149) 07/18/20 11:00 Cholesterol 134 mg/dL (50-199) 07/18/20 11:00 LDL Cholesterol Direct 54 mg/dL (50-130) 07/18/20 11:00 HDL Cholesterol 71 mg/dL (40-59) H 07/18/20 11:00 Cholesterol/HDL Ratio 1.88 % 07/18/20 11:00 [place]/IV: Voiding Method Toilet Active Medications - Current Medications Current Medications: Generic Name Dose Route Start Last Admin Trade Name Freq PRN Reason Stop Dose Admin Acetaminophen 650 mg 07/18/20 13:51 07/18/20 20:53 Acetaminophen 325 Mg Tab PO 650 mg Q4H PRN Administration Pain MILD(1-3)/Fever >100.5/BRAR Aspirin 81 mg 07/19/20 10:00 Aspirin 81 Mg Tab Chew PO QDAY [facility] Atorvastatin Calcium 20 mg 07/19/20 22:00 Atorvastatin 20 Mg Tab PO QHS [facility] Clopidogrel Bisulfate 75 mg 07/19/20 10:00 Clopidogrel 75 Mg Tab PO QDAY [facility] Dextrose 50 ml 07/19/20 08:30 Dextrose 50% In Water (25gm) 50 Ml Syringe IV Q30MIN PRN Hypoglycemia Protocol Insulin Glargine 6 units 07/20/20 09:00 Insulin Glargine 100 Units/Ml SUB-Q QAMDIAB [facility] Insulin Human Lispro 0 unit 07/19/20 08:30 Insulin Lispro 100 Unit/Ml SUB-Q ACHS [facility] Protocol Lisinopril 2.5 mg 07/19/20 10:00 Lisinopril 5 Mg Tab PO QDAY [facility] Metoprolol Succinate 25 mg 07/19/20 10:00 Metoprolol Succinate Xl 25 Mg Tab PO QDAY [facility] Morphine Sulfate 1 mg 07/18/20 13:51 Morphine 2 Mg/1 Ml Inj IV Q6H PRN Pain, Moderate (4-6) Ondansetron HCl 4 mg 07/18/20 13:51 Ondansetron 4 Mg/2 Ml Inj IV Q8H PRN Nausea And Vomiting Sodium Chloride 10 ml 07/18/20 22:00 07/19/20 06:27 Sodium Chloride 0.9% 10 Ml Flush Syringe IV Not Given BID [facility] Sodium Chloride 10 ml 07/18/20 13:51 Sodium Chloride 0.9% 10 Ml Flush Syringe IV PRN PRN LINE FLUSH Spironolactone 25 mg 07/19/20 10:00 Spironolactone 25 Mg Tab PO QDAY [facility]
--- NOTE | 2020-07-19 10:29 | Progress Note ---
Assessment and Plan Continue ASA, Plavix, & statin. Will convert PO Lopressor to Toprol 25mg daily. Continue ACEi and Aldactone as well. Will defer to Primary for optimization of BG. Otherwise stable cardiac status. Follow-up with Dr. Diaz in our [place] office on 07/23/2020 @ 10am ([phone]). Pt seen in conjunction with Dr. Diaz, who agrees with the assessment and plan of care. - Patient Problems (1) Non-STEMI (non-ST elevated myocardial infarction) Current Visit: Yes Status: Acute (2) CAD (coronary artery disease), [place] coronary artery Current Visit: Yes Status: Chronic Qualifiers: [place] vs. transplanted heart: [place] heart (3) Stented coronary artery Current Visit: Yes Status: Chronic (4) Ischemic cardiomyopathy Current Visit: Yes Status: Chronic (5) Chronic HFrEF (heart failure with reduced ejection fraction) Current Visit: Yes Status: Acute (6) Leukocytosis Current Visit: Yes Status: Acute (7) Hyponatremia Current Visit: Yes Status: Acute (8) Elevated LFTs Current Visit: Yes Status: Acute (9) HTN (hypertension) Current Visit: Yes Status: Chronic Qualifiers: Hypertension type: essential hypertension Qualified Code(s): I10 - Essential (primary) hypertension (10) HLD (hyperlipidemia) Current Visit: Yes Status: Chronic Qualifiers: Hyperlipidemia type: mixed hyperlipidemia Qualified Code(s): E78.2 - Mixed hyperlipidemia (11) DM2 (diabetes mellitus, type 2) Current Visit: Yes Status: Suspected (12) History of tobacco use Current Visit: Yes Status: Chronic (13) TSERING (obstructive sleep apnea) Current Visit: Yes Status: Suspected Subjective Date of service: 07/19/20 Principal diagnosis: NSTEMI, S/p PCI Interval history: Sitting up comfortably in bed. Denies chest pain, SOB, or any additional cardiac complaints. Tele reviewed - SR w/PACs 70-80s, no events. Objective Last Vital Signs Temp 99.4 F 07/19/20 03:27 Pulse 107 H 07/19/20 03:24 Resp 18 07/19/20 03:27 BP 107/63 07/19/20 03:27 Pulse Ox 82 L 07/19/20 03:24 - Physical Examination General: No Apparent Distress HEENT: Positive: EOMI, Normocephaly, Mucus Membranes Moist Neck: Positive: neck supple, trachea midline. Negative: JVD/HJR Cardiac: Positive: Reg Rate and Rhythm, S1/S2. Negative: Audible Murmur Lungs: Positive: clear to auscultation Neuro: Positive: Grossly Intact Abdomen: Positive: Soft, Active Bowel Sounds. Negative: Tender Skin: Negative: Rash Incision: Cardiac Cath Site (R radial site C/D/I - no evidence of bleeding or hematoma) Musculoskeletal: Normal Range of Motion Extremities: Present: upper extr. pulses, lower extr. pulses. Absent: edema - Labs and Meds Cardiac Enzymes 07/18/20 07/18/20 Range/Units 11:00 15:15 AST 88 H 73 H (5-40) units/L Coagulation 07/18/20 07/18/20 Range/Units 13:45 15:15 PT > 120.0 H 14.5 (12.2-14.9) Sec. INR > 17.00 H* 1.15 H (0.87-1.13) Lipids 07/18/20 Range/Units 11:00 Triglycerides 119 (2-149) mg/dL Cholesterol 134 (50-199) mg/dL HDL Cholesterol 71 H (40-59) mg/dL Cholesterol/HDL Ratio 1.88 % CBC 07/18/20 07/18/20 Range/Units 11:00 13:45 WBC 14.8 H 15.9 H (4.5-11.0) K/mm3 RBC 5.14 H 5.02 (3.65-5.03) M/mm3 Hgb 15.5 H 15.6 H (11.8-15.2) gm/dl Hct 45.2 43.9 (35.5-45.6) % Plt Count 231 222 (140-440) K/mm3 Lymph # (Auto) 2.1 1.9 (1.2-5.4) K/mm3 [place] # (Auto) 1.5 H 1.7 H (0.0-0.8) K/mm3 Eos # (Auto) 0.1 0.1 (0.0-0.4) K/mm3 Baso # (Auto) 0.0 0.1 (0.0-0.1) K/mm3 Comprehensive Metabolic Panel 07/18/20 07/18/20 07/18/20 Range/Units 11:00 13:45 15:15 Sodium 128 L 131 L (137-145) mmol/L Potassium 4.2 4.6 (3.6-5.0) mmol/L Chloride 90.9 L 91.9 L (98-107) mmol/L Carbon Dioxide 26 26 (22-30) mmol/L BUN 17 18 (9-20) mg/dL Creatinine 0.7 L 0.7 L (0.8-1.3) mg/dL Glucose 434 H 350 H (75-100) mg/dL Calcium 8.8 8.8 (8.4-10.2) mg/dL Direct Bilirubin 0.2 (0-0.2) mg/dL Indirect Bilirubin 0.4 mg/dL AST 88 H 73 H (5-40) units/L ALT 116 H 104 H (7-56) units/L Alkaline Phosphatase 161 H 166 H (35-129) units/L Total Protein 7.0 6.2 L (6.3-8.2) g/dL Albumin 3.4 L 3.5 L (3.9-5) g/dL 07/19/20 Range/Units 04:29 Sodium 130 L (137-145) mmol/L Potassium 4.2 (3.6-5.0) mmol/L Chloride 93.1 L (98-107) mmol/L Carbon Dioxide 23 (22-30) mmol/L BUN 19 (9-20) mg/dL Creatinine 0.7 L (0.8-1.3) mg/dL Glucose 329 H (75-100) mg/dL Calcium 8.4 (8.4-10.2) mg/dL Direct Bilirubin (0-0.2) mg/dL Indirect Bilirubin mg/dL AST (5-40) units/L ALT (7-56) units/L Alkaline Phosphatase (35-129) units/L Total Protein (6.3-8.2) g/dL Albumin (3.9-5) g/dL - Imaging and Cardiology EKG: report reviewed, image reviewed Echo: report reviewed (07/18/2020 - EF 30-35%, mild LVH, hypokinesis of inerior, septal, & inferolateral stubbs, mild diastolic dysfxn) Cardiac cath: report reviewed (07/18/20 - PCI of mid RCA w/CARA, prox RCA 30-40%, distal RCA 30-40%, small PDA and PLV with long vessels, diffuse disease ~ 50%) - Telemetry EKG Rhythm: Sinus Rhythm - EKG Sinus rhythms and dysrhythmias: sinus rhythm
--- NOTE | 2020-07-19 10:51 | Electrocardiograph Report ---
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
[2020-07-19] MEDS: INSULIN LISPRO 100 UNIT/ML SUB-Q SCH ×6 (13:17→21:56)
[2020-07-19] MEDS: CLOPIDOGREL 75 MG TAB PO SCH (13:18)
[2020-07-19] MEDS: ASPIRIN 81 MG TAB CHEW PO SCH (13:18)
[2020-07-19] MEDS: SPIRONOLACTONE 25 MG TAB PO SCH (13:18)
[2020-07-19] MEDS: LISINOPRIL 5 MG TAB PO SCH (13:18)
[2020-07-19] MEDS: METOPROLOL SUCCINATE XL 25 MG TAB PO SCH (13:18)
--- NOTE | 2020-07-19 14:14 | Event Note ---
Date: 07/19/20 Notified by RN that pt ripped off his TR band and left AMA this afternoon, stating "I don't have time for this." Will attempt to reach pt via phone to reiterate the importance of adherence to the aforementioned cardiac medications, as well as to confirm follow-up appointments with Dr. Maher and Dr. Johnson as previously documented.
[2020-07-19] MEDS ORDERED: FUROSEMIDE 40 MG/4 ML INJ IV ONE (15:56)
[2020-07-19] MEDS ORDERED: INSULIN GLARGINE 100 UNITS/ML SUB-Q SCH (22:00)
[2020-07-19] MEDS ORDERED: ENOXAPARIN 40 MG/0.4 ML INJ SUB-Q SCH (22:00)
[2020-07-20 06:24] LABS: Alanine Aminotransferase 51 units/L (7-56); Blood Urea Nitrogen 20 mg/dL (9-20); Calcium 8.5 mg/dL (8.4-10.2); Hemolysis Index 0
[2020-07-20 06:27] LABS: BUN/Creatinine Ratio 29
[2020-07-20] MEDS ORDERED: INSULIN GLARGINE 100 UNITS/ML SUB-Q SCH (09:00)
[2020-07-20] MEDS: INSULIN LISPRO 100 UNIT/ML SUB-Q SCH ×4 (09:23→14:34)
[2020-07-20] MEDS: LISINOPRIL 5 MG TAB PO SCH (10:37)
[2020-07-20] MEDS: CLOPIDOGREL 75 MG TAB PO SCH (10:37)
[2020-07-20] MEDS: METOPROLOL SUCCINATE XL 25 MG TAB PO SCH (10:37)
[2020-07-20] MEDS: SPIRONOLACTONE 25 MG TAB PO SCH (10:37)
[2020-07-20] MEDS: ASPIRIN 81 MG TAB CHEW PO SCH (10:37)
--- NOTE | 2020-07-20 11:17 | Discharge Summary ---
Providers - Providers Date of Admission: 07/18/20 13:52 Date of discharge: 07/20/20 Attending physician: HANNAH ORLANDO 07/18/20 Consult to Cardiac Rehabilitation [CONS] Routine Reason For Exam: post pci 07/18/20 13:30 Consult to Physician [CONS] Stat Comment: Consulting Provider: SURESH HEAD Physician Instructions: Reason For Exam: Chest pain, elevated troponin Primary care physician: PAINT TRIMMER [employer] Hospitalization Condition: Fair Hospital course: 35 YO Male with no PMH presents to ED for evaluation. Pt reports " my chest has been hurting". Patient states that he had experienced pain in his chest over the past 2 days with persistent symptoms over the same timeframe. Patient states that pain is 5/10, constant, worsened with deep breathing and inspiration, not worsened with exertion, not relieved with rest. Patient transported to [facility] via private vehicle for further care and evaluation of the aforementioned symptoms. The patient was seen and evaluated in the emergency department. All lab and imaging studies reviewed. Patient underwent EKG which showed diffuse nonspecific ST changes as well as elevated troponin. Patient lab findings consistent with non-ST elevation [place]. Patient also found to have symptoms consistent with diastolic CHF, hyponatremia, as well as systemic plantar response syndrome. Cardiology team consulted in ED. Patient denies fever, chills, chest pain, palpitation, productive cough, skin rash, recent ill contacts, or known exposure to COVID-19. No prior admission for review. No medication listed at time of admission for reconciliation. Patient is pending cardiac cath as per cardiology team. Hospital course Patient left heart catheterization he had PCI of the mid RCA with drug-eluting stents. 07/19. Patient is now on aspirin and Plavix. 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 Patient seen and examined at bedside this morning, he denies any chest pain. He feels great. Reviewed his vitals overnight. Noted to be hypoxic at night. Suspect patient has TSERING. He will be referred to pulmonology for sleep study 07/20. He is doing well. No chest pain. He is medically stable for discharge today. He will follow up with cardiology in the office. I will have him see a media sales consultant for sleep study Disposition: TO HOME OR SELFCARE Final Discharge Diagnosis (Prints w/discharge instructions): NSTEMI Time spent for discharge: 40 mins Core Measure Documentation - Palliative Care Palliative Care/ Comfort Measures: Not Applicable - Core Measures Any of the following diagnoses?: none Exam - Physical Exam Narrative exam: VITAL SIGNS: Reviewed. GENERAL: Awake HEAD: No signs of head trauma. EYES: Pupils are equal. Extraocular motions intact. MOUTH: Oropharynx is normal. NECK: No adenopathy, no JVD. CHEST: Chest with diminished breath sounds bilaterally. No wheezes, rales, or rhonchi. CARDIAC: normal S1 and S2, without murmurs, gallops, or rubs. ABDOMEN: Soft, non tender and non distended. No rebound or guarding, and no masses palpated. Bowel Sounds normal. MUSCULOSKELETAL: No edema NEUROLOGIC EXAM: Alert and oriented x3. No focal neurologic deficits SKIN: No obvious lesions - Constitutional Vitals: Temp Pulse Resp BP Pulse Ox 99.3 F 90 18 119/77 90 07/20/20 07:23 07/20/20 07:23 07/20/20 07:23 07/20/20 07:23 07/20/20 09:51 Plan Diet: low fat, low cholesterol, low salt, diabetic Additional Instructions: Continue cardiac medications. Continue insulin as ordered. Follow up with a PCP for diabetes management. Follow up with: PRIMARY CARE, [Primary Care Provider] - 3-5 Days SURESH HEAD MD [Staff Physician] - 7 Days Prescriptions: AtorvaSTATin [Lipitor] 20 mg PO QHS #60 tablet Spironolactone [Aldactone] 25 mg PO QDAY #60 tablet Aspirin [Aspirin BABY CHEW TAB] 81 mg PO QDAY #60 tab.chew Metoprolol Xl [Metoprolol SUCCINATE ER TAB] 25 mg PO QDAY #60 tablet Insulin NPH Hum/Reg Insulin Hm [Novolin 70-30 100 Unit/ml Vial] 15 unit SQ BID #20 ml Clopidogrel [Plavix] 75 mg PO QDAY #60 tablet lisinopriL [Zestril TAB] 2.5 mg PO QDAY #60 tablet
--- NOTE | 2020-07-20 11:20 | Progress Note ---
Assessment and Plan NSTEMI type I status post PCI Patient is currently chest pain-free. Troponins are trending downward. Post PCI twelve-lead shows no ST segment elevation. [facility] reviewed (07/18/20) - PCI of mid RCA w/CARA, prox RCA 30-40%, distal RCA 30-40%, small PDA and PLV with long vessels, diffuse disease ~ 50% DAPT: ASA 81 mg + Plavix 75 mg daily x1 year Cardiomyopathy Echocardiogram reviewed (07/18/2020): LVEF 30-35%. Left ventricle is mildly dilated. Mild concentric LVH. Hypokinesis of inferior wall. Hypokinesis of septal wall. Hypokinesis in the inferior lateral wall. Mild diastolic function is present (impaired relaxation pattern). RV SF is mildly reduced. Mild to moderate MR. Mild TR. RVSP normal Continue current cardiac regimen with BB, ACEI/ARB, and high intensity statin. Patient is on metoprolol XL 25 mg p.o. daily, lisinopril 2.5 mg p.o. daily, atorvastatin 40 mg p.o. nightly. Heart failure reduced ejection fraction Patient appears to be near euvolemia. No extremity edema is noted. Breath sounds are clear to auscultation. Elevated D-dimer D-dimer is minimally elevated. Patient is currently chest pain free with no shortness of breath. Patient is requesting to go home. DVT prophylaxis Lovenox SQ Patient is currently in stable cardiac status. Continue current cardiac regimen including DAPT, BB, ACEI. Patient may discharge from cardiology standpoint. Patient should follow-up with Dr. Diaz in our [place] office on 07/30/2020 at 8:30 AM. Number [phone] This patient was seen in conjunction with Dr. Diaz who agrees with this assessment and plan of care - Patient Problems (1) Non-STEMI (non-ST elevated myocardial infarction) Current Visit: Yes Status: Acute (2) Cardiomyopathy Current Visit: Yes Status: Acute (3) HFrEF (heart failure with reduced ejection fraction) Current Visit: Yes Status: Acute (4) DVT prophylaxis Current Visit: Yes Status: Acute (5) History of tobacco use Current Visit: Yes Status: Chronic Subjective Date of service: 07/20/20 Principal diagnosis: NSTEMI, S/p PCI Interval history: Patient is resting comfortably in bed. No shortness of breath no chest pain Telemetry reviewed: Sinus tach 102. Episode of second-degree heart block [place] I noted overnight. Objective Last Vital Signs Temp 99.3 F 07/20/20 07:23 Pulse 90 07/20/20 07:23 Resp 18 07/20/20 07:23 BP 119/77 07/20/20 07:23 Pulse Ox 90 07/20/20 09:51 - Physical Examination General: No Apparent Distress HEENT: Positive: EOMI, Normocephaly, Mucus Membranes Moist Neck: Positive: neck supple, trachea midline. Negative: JVD/HJR Cardiac: Positive: Reg Rate and Rhythm, S1/S2 Lungs: Positive: clear to auscultation, Normal Breath Sounds Neuro: Positive: Grossly Intact Abdomen: Positive: Soft, Active Bowel Sounds. Negative: Tender Skin: Positive: Other (Right radial cath site inspected. Telfa Tegaderm in place. No bleeding or hematoma noted. No erythema exudate or edema noted.). Negative: Rash Incision: Cardiac Cath Site (R radial site C/D/I - no evidence of bleeding or hematoma) Musculoskeletal: No Pain, Normal Range of Motion Extremities: Present: upper extr. pulses, lower extr. pulses. Absent: edema - Labs and Meds Cardiac Enzymes 07/20/20 Range/Units 05:05 AST 29 (5-40) units/L Comprehensive Metabolic Panel 07/20/20 Range/Units 05:05 Sodium 132 L (137-145) mmol/L Potassium 3.8 (3.6-5.0) mmol/L Chloride 92.8 L (98-107) mmol/L Carbon Dioxide 25 (22-30) mmol/L BUN 20 (9-20) mg/dL Creatinine 0.7 L (0.8-1.3) mg/dL Glucose 202 H (75-100) mg/dL Calcium 8.5 (8.4-10.2) mg/dL AST 29 (5-40) units/L ALT 51 (7-56) units/L Alkaline Phosphatase 133 H (35-129) units/L Total Protein 6.8 (6.3-8.2) g/dL Albumin 3.0 L (3.9-5) g/dL - Imaging and Cardiology EKG: report reviewed, image reviewed Echo: report reviewed (Telemetry reviewed: Sinus rhythm 70. No events. Echocardiogram reviewed (07/18/2020): LVEF 30-35%. Left ventricle is mildly dilated. Mild concentric LVH. Hypokinesis of inferior wall. Hypokinesis of septal wall. Hypokinesis in the inferior lateral wall. Mild diastolic function is present (imp) Cardiac cath: report reviewed (07/18/20 - PCI of mid RCA w/CARA, prox RCA 30-40%, distal RCA 30-40%, small PDA and PLV with long vessels, diffuse disease ~ 50%) - Telemetry EKG Rhythm: Sinus Rhythm - EKG Sinus rhythms and dysrhythmias: sinus rhythm
[2020-07-20 12:23] VITALS: BP 116/73
== END 2020-07-20 15:41 | disposition home or self-care (01) | DRG 246 ==
LOC: ED 09:32 → 4A 13:52
PROVIDERS: ADMIT Internal Medicine; ATTEND Internal Medicine
PROC: 4A023N7 Measurement of Cardiac Sampling and Pressure, Left Heart, Percutaneous Approach (ICD-10-PCS; principal; 2020-07-18)
PROC: 027034Z Dilation of Coronary Artery, One Artery with Drug-eluting Intraluminal Device, Percutaneous Approach (ICD-10-PCS; 2020-07-18)
DX: I21.4 Non-ST elevation (NSTEMI) myocardial infarction (principal); I50.41 Acute combined systolic (congestive) and diastolic (congestive) heart failure; E87.1 Hypo-osmolality and hyponatremia; R65.10 Systemic inflammatory response syndrome (SIRS) of non-infectious origin without acute organ dysfunction; I42.9 Cardiomyopathy, unspecified; R79.89 Other specified abnormal findings of blood chemistry; E78.5 Hyperlipidemia, unspecified; I25.10 Atherosclerotic heart disease of native coronary artery without angina pectoris; Z87.891 Personal history of nicotine dependence; Z82.49 Family history of ischemic heart disease and other diseases of the circulatory system
CPT/HCPCS: 36415; 71046; 80048; 80053; 80061; 80076; 82962; 83036; 83880; 84484; 85025; 85379; 85610; 87641; 92928; 92978; 93005; 93306; 93458; 96374; 96375; 99406; G0378; A9270-GY; C1725; C1753; C1769; C1874; C1887; C1894; C9600; J1644; J1650; J1815; J1940; J2250; J2370; J2405; J3010; J7040; Q9967

== ENCOUNTER 2020-11-13 11:29 | Inpatient (IN) | payer OTHER, SELFPAY ==
[2020-11-13 16:20] LABS: Hematocrit 45.6 % (35.5-45.6); Hemoglobin 16.1 gm/dl (11.8-15.2); Mean Corpuscular HGB Conc 35 % (32-34); Mean Corpuscular Volume 85 fl (84-94); Platelet Count 166 K/mm3 (140-440); Red Blood Count 5.37 M/mm3 (3.65-5.03); Red Cell Distribution Width 13.2 % (13.2-15.2)
--- NOTE | 2020-11-13 16:31 | XRay Report ---
CHEST 2 VIEWS INDICATION / CLINICAL INFORMATION: Shortness of breath.. COMPARISON: 07/18/2020. FINDINGS: SUPPORT DEVICES: None. HEART / MEDIASTINUM: No significant abnormality. LUNGS / PLEURA: Diffuse bilateral airspace disease. No pneumothorax. ADDITIONAL FINDINGS: No significant additional findings. IMPRESSION: Diffuse bilateral airspace disease. The appearance may reflect infection in the appropriate clinical setting. Signer Name: Remy Birmingham MD Signed: 11/13/2020 4:27 PM Workstation Name: [id number]
[2020-11-13 16:43] LABS: Alanine Aminotransferase 32 units/L (7-56); BUN/Creatinine Ratio 24; Blood Urea Nitrogen 17 mg/dL (9-20); Calcium 7.9 mg/dL (8.4-10.2); Hemolysis Index 6
[2020-11-13 18:10] LABS: RBC Morphology Normal; Total Cells Counted 100
[2020-11-13] MEDS ORDERED: AZITHROMYCIN 250 MG TAB PO ONE (19:00)
[2020-11-13] MEDS ORDERED: dexAMETHasone 4 MG/ML VIAL IV ONE (19:00)
[2020-11-13] MEDS ORDERED: cefTRIAXone/NS 1 GM/50 ML 1 GM/50 ML BAG IV ONE (19:00)
[2020-11-13] MEDS ORDERED: INSULIN REGULAR, HUMAN 100 UNITS/1 ML IV ONE ×2 (19:01→21:30)
[2020-11-13] MEDS ORDERED: SODIUM CHLORIDE 0.9% 500 ML 500 ML IV ONE (19:05)
--- NOTE | 2020-11-13 19:05 | Emergency Department Report ---
ED General Adult HPI - General Chief complaint: Dyspnea/Respdistress Stated complaint: RESP DISTRESS PUI?: Yes Time Seen by Provider: 11/13/20 18:47 Source: patient, EMS ( EMS documentation not available at time of chart dictation ), RN notes reviewed, old records reviewed Mode of arrival: Stretcher Limitations: Physical Limitation - History of Present Illness Initial comments: The patient was evaluated in the emergency department for symptoms described in the history of present illness. He/she was evaluated in the context of the global COVID-19 pandemic, which necessitated consideration that the patient might be at risk for infection with the virus that causes COVID-19. Institutional protocols and algorithms that pertain to the evaluation of patients at risk for COVID-19 are in a state of rapid change based on infor mation released by regulatory bodies including the CDC and federal and state organizations. These policies and algorithms were followed during the patient's care in the emergency department. Please note that these policies, procedures and recommendations changed on a rapid basis. During the entire history and physical examination, I had on complete personal protective equipment. This patient presented to the COVID-19 pandemic. This patient was seen by myself in the acute waiting room, pending bed availability in the emergency room. Patient gave permission to have a history, physical performed in the acute waiting room, along with discussions of science laboratory and radiographic tests, and discussion of the plan of care. Past medical history: Ischemic heart disease, stents, NSTEMI, CHF, EF of 30 to 35%, diabetes, recent hemoglobin A1c of 11, presumed hypertension, and noncompliance. The patient does not have a COVID-19 vaccination. This is a 35-year-old gentleman. He is not known to myself previously. He presents to the ER today with 3 days of cough, congestion, shortness of breath, malaise, fatigue, weakness, loss of taste and smell. He states he does not believe he has any chronic medical conditions. He states he does not take medications that he is aware of. His symptoms are constant for the past 3 days. They are getting worse. They worsen with physical exertion. They decreased with rest. Positive increase in urinary frequency, positive increase in thirst. Positive generalized body aches. Positive loss of taste and smell. -: Gradual, days(s) Quality: aching Consistency: constant Improves with: rest Worsens with: movement - Related Data Previous Rx's Medication Instructions Recorded Last Taken Type HYDROcodone/APAP 5-325 [Chardon 1 each PO Q6HR PRN #10 tablet 11/17/19 Unknown Rx 5/325] Aspirin [Aspirin BABY CHEW TAB] 81 mg PO QDAY #60 tab.chew 07/20/20 Unknown Rx AtorvaSTATin [Lipitor] 20 mg PO QHS #60 tablet 07/20/20 Unknown Rx Clopidogrel [Plavix] 75 mg PO QDAY #60 tablet 07/20/20 Unknown Rx Insulin NPH Hum/Reg Insulin Hm 15 unit SQ BID #20 ml 07/20/20 Unknown Rx [Novolin 70-30 100 Unit/ml Vial] Metoprolol Xl [Metoprolol 25 mg PO QDAY #60 tablet 07/20/20 Unknown Rx SUCCINATE ER TAB] Spironolactone [Aldactone] 25 mg PO QDAY #60 tablet 07/20/20 Unknown Rx lisinopriL [Zestril TAB] 2.5 mg PO QDAY #60 tablet 07/20/20 Unknown Rx Allergies Allergy/AdvReac Type Severity Reaction Status Date / Time No Known Allergies Allergy Verified 07/18/20 10:26 ED Review of Systems ROS: Stated complaint: RESP DISTRESS Other details as noted in HPI Constitutional: malaise, weakness, other (Loss of taste and smell) Eyes: denies: eye discharge ENT: congestion Respiratory: shortness of breath Cardiovascular: denies: chest pain Gastrointestinal: denies: vomiting Genitourinary: frequency Musculoskeletal: arthralgia, myalgia Neurological: weakness Hematological/Lymphatic: denies: easy bleeding ED Past Medical Hx - Past Medical History Previous Medical History?: Yes Hx Congestive Heart Failure: Yes Hx Diabetes: No Hx Asthma: No Hx COPD: No Hx HIV: No - Social History Smoking Status: Former Smoker - Medications Home Medications: Home Medications Medication Instructions Recorded Confirmed Last Taken Type HYDROcodone/APAP 5-325 [Chardon 1 each PO Q6HR PRN #10 tablet 11/17/19 07/18/20 Unknown Rx 5/325] Aspirin [Aspirin BABY CHEW TAB] 81 mg PO QDAY #60 tab.chew 07/20/20 Unknown Rx AtorvaSTATin [Lipitor] 20 mg PO QHS #60 tablet 07/20/20 Unknown Rx Clopidogrel [Plavix] 75 mg PO QDAY #60 tablet 07/20/20 Unknown Rx Insulin NPH Hum/Reg Insulin Hm 15 unit SQ BID #20 ml 07/20/20 Unknown Rx [Novolin 70-30 100 Unit/ml Vial] Metoprolol Xl [Metoprolol 25 mg PO QDAY #60 tablet 07/20/20 Unknown Rx SUCCINATE ER TAB] Spironolactone [Aldactone] 25 mg PO QDAY #60 tablet 07/20/20 Unknown Rx lisinopriL [Zestril TAB] 2.5 mg PO QDAY #60 tablet 07/20/20 Unknown Rx ED Physical Exam - General Limitations: Physical Limitation General appearance: alert, in no apparent distress - Head Head exam: Present: atraumatic, normocephalic - Eye Eye exam: Present: normal appearance, EOMI. Absent: nystagmus - ENT ENT exam: Present: normal exam, normal orophraynx, mucous membranes moist, TM's normal bilaterally - Neck Neck exam: Present: normal inspection, full ROM. Absent: tenderness, meningismus - Respiratory Respiratory exam: Present: other (Pulmonary auscultation not performed secondary to lack of disposable stethoscope). Absent: rhonchi - Cardiovascular Cardiovascular Exam: Present: tachycardia (Tachycardia appreciated on pulse examination), other (Cardiac auscultation not performed secondary to lack of disposable stethoscope) - GI/Abdominal GI/Abdominal exam: Present: soft. Absent: distended, tenderness, guarding, rigid, pulsatile mass - Rectal Rectal exam: Present: deferred - Extremities Exam Extremities exam: Present: normal inspection, full ROM, other (2+ pulses noted in the bilateral upper extremities. There is no long bony tenderness. The mus cular compartments are soft. The pelvis is stable.). Absent: calf tenderness - Back Exam Back exam: Present: normal inspection. Absent: tenderness, CVA tenderness (R), CVA tenderness (L), paraspinal tenderness, vertebral tenderness - Neurological Exam Neurological exam: Present: alert, oriented X3, other (No facial droop. Tongue midline. Extraocular movements intact bilaterally. Facial sensation intact to light touch in V1, V2, V3 distribution bilaterally. 5 and a 5 strength in 4 extremities. Sensation intact to light touch in 4 extremities.). Absent: motor sensory deficit - Psychiatric Psychiatric exam: Present: anxious - Skin Skin exam: Present: warm, dry, intact, normal color. Absent: rash ED Course Vital Signs 11/13/20 11/13/20 14:21 16:07 Temperature 98.4 F Pulse Rate 114 H 89 Respiratory 24 32 H Rate Blood Pressure 132/84 [Right] O2 Sat by Pulse 95 94 Oximetry - Reevaluation(s) Reevaluation #1: 11/13/20 19:10 Differential diagnosis, including not limited to: COVID-19, pneumonia, urinary tract infection, noncompliance, CHF, hypoxic respiratory failure, electrolyte derangement Assessment and plan: 35-year-old gentleman with shortness of breath, malaise, fatigue and weakness, and prototypical Covid symptomatology. He is hypoxic on room air, and chest x- ray shows multiple infiltrates. Glucose elevated at 353, with pseudohyponatremia, however with correction, sodium corrects to 127/129, depend ing on which formula is used (127 mEq/L Corrected Sodium (Be, 1973) 129 mEq/L Corrected Sodium (Lola, 1999)) Given history of CHF with EF of 30 to 35%, apparent noncompliance, hypoxia, symptomatology, relative hyponatremia with correction, there may be a component of hypervolemic hyponatremia here. We will therefore withhold IV fluids, administer fluid restriction, start therapy with insulin. Venous pH and serum ketones ordered. Uncertain if metabolic acidosis secondary to CO2 losses from tachypnea, diabetic ketoacidosis Supplemental oxygen ordered, steroids ordered empirically, ceftriaxone, azithromycin ordered. Isolation precautions ordered. Covid laboratory studies ordered. This patient meets criteria for admission hospitalization secondary to the aforementioned. We appreciate that this patient is ruling in for systemic inflammatory response syndrome. However, given multiple competing diagnoses, including decompensated CHF, versus COVID-19, 30 cc/kg bolus of IV fluid contraindicated, as this may precipitate acute respiratory distress syndrome, as well as respiratory collapse. We will maintain him on supplemental oxygen, I will initiate fluid restriction in the emergency room, and I will defer to the inpatient team to further manage his fluid status. I discussed this plan of care with the patient, and he is agreeable to hospitalization and admission. I have reached out to the hospital physician to arrange admission. I am awaiting callback. 11/13/20 19:11 11/13/20 19:14 11/13/20 21:29 reassessed. Appears more comfortable. Admitted to the care of [facility] physician, Dr. Armijo ED Medical Decision Making - Lab Data Result diagrams: 11/13/20 16:07 11/13/20 19:43 Vital Signs 11/13/20 11/13/20 14:21 16:07 Temperature 98.4 F Pulse Rate 114 H 89 Respiratory 24 32 H Rate Blood Pressure 132/84 [Right] O2 Sat by Pulse 95 94 Oximetry Lab Results 11/13/20 11/13/20 11/13/20 Range/Units 16:07 16:07 16:07 WBC 4.4 L (4.5-11.0) K/mm3 RBC 5.37 H (3.65-5.03) M/mm3 Hgb 16.1 H (11.8-15.2) gm/dl Hct 45.6 (35.5-45.6) % MCV 85 (84-94) fl MCH 30 (28-32) pg MCHC 35 H (32-34) % RDW 13.2 (13.2-15.2) % Plt Count 166 (140-440) K/mm3 Add Manual Diff Complete Total Counted 100 Seg Neutrophils % Tip Bander Seg Neuts % (Manual) 89.0 H (40.0-70.0) % Lymphocytes % (Manual) 7.0 L (13.4-35.0) % Monocytes % (Manual) 4.0 (0.0-7.3) % Nucleated RBC % Not Reportable Seg Neutrophils # Man 3.9 (1.8-7.7) K/mm3 Band Neutrophils # 0.0 K/mm3 Lymphocytes # (Manual) 0.3 L (1.2-5.4) K/mm3 Abs React Lymphs (Man) 0.0 K/mm3 Monocytes # (Manual) 0.2 (0.0-0.8) K/mm3 Eosinophils # (Manual) 0.0 (0.0-0.4) K/mm3 Basophils # (Manual) 0.0 (0.0-0.1) K/mm3 Metamyelocytes # 0.0 K/mm3 Myelocytes # 0.0 K/mm3 Promyelocytes # 0.0 K/mm3 Blast Cells # 0.0 K/mm3 WBC Morphology Not Reportable Hypersegmented Neuts Not Reportable Hyposegmented Neuts Not Reportable Hypogranular Neuts Not Reportable Smudge Cells Not Reportable Toxic Granulation Not Reportable Toxic Vacuolation Not Reportable Dohle Bodies Not Reportable Pelger-Huet Anomaly Not Reportable Sarmad Rods Not Reportable Platelet Estimate Not Reportable Clumped Platelets Not Reportable Plt Clumps, EDTA Not Reportable Large Platelets Not Reportable Giant Platelets Not Reportable Platelet Satelliting Not Reportable Plt Morphology Comment Not Reportable RBC Morphology Normal Dimorphic RBCs Not Reportable Polychromasia Not Reportable Hypochromasia Not Reportable Poikilocytosis Not Reportable Anisocytosis Not Reportable Microcytosis Not Reportable Macrocytosis Not Reportable Spherocytes Not Reportable Pappenheimer Bodies Not Reportable Sickle Cells Not Reportable Target Cells Not Reportable Tear Drop Cells Not Reportable Ovalocytes Not Reportable Helmet Cells Not Reportable Koehler-Hoagland Bodies Not Reportable [place] Rings Not Reportable Ilya Cells Not Reportable Bite Cells Not Reportable Crenated Cell Not Reportable Elliptocytes Not Reportable Acanthocytes (Spur) Not Reportable Rouleaux Not Reportable Hemoglobin C Crystals Not Reportable Schistocytes Not Reportable Malaria parasites Not Reportable Martin Bodies Not Reportable Hem Pathologist Commnt No Sodium 123 L (137-145) mmol/L Potassium 4.9 (3.6-5.0) mmol/L Chloride 93.8 L (98-107) mmol/L Carbon Dioxide 15 L (22-30) mmol/L Anion Gap 19 mmol/L BUN 17 (9-20) mg/dL Creatinine 0.7 L (0.8-1.3) mg/dL Estimated GFR > 60 ml/min BUN/Creatinine Ratio 24 % Glucose 353 H (75-100) mg/dL Calcium 7.9 L (8.4-10.2) mg/dL Total Bilirubin 0.50 (0.1-1.2) mg/dL AST 63 H (5-40) units/L ALT 32 (7-56) units/L Alkaline Phosphatase 85 (35-129) units/L Troponin T < 0.010 (0.00-0.029) ng/mL NT-Pro-B Natriuret Pep 1862 H (0-450) pg/mL Total Protein 7.2 (6.3-8.2) g/dL Albumin 3.0 L (3.9-5) g/dL Albumin/Globulin Ratio 0.7 % - EKG Data -: EKG Interpreted by K[facility] EKG shows normal: sinus rhythm Rate: normal - EKG Data 11/13/20 20:33 EKG interpreted at 20: 1 3 Sinus rhythm, 95 bpm. Left axis deviation. QTC prolonged, 520 ms. Q waves noted in the inferior leads. Motion artifact. Abnormal EKG. Not a STEMI. Nonspecific changes when compared to prior EKG from June 2020 - Radiology Data Radiology results: report reviewed, image reviewed CHEST 2 VIEWS INDICATION / CLINICAL INFORMATION: Shortness of breath.. COMPARISON: 07/18/2020. FINDINGS: SUPPORT DEVICES: None. HEART / MEDIASTINUM: No significant abnormality. LUNGS / PLEURA: Diffuse bilateral airspace disease. No pneumothorax. ADDITIONAL FINDINGS: No significant additional findings. IMPRESSION: Diffuse bilateral airspace disease. The appearance may reflect infection in the appropriate clinical setting. Signer Name: Remy Birmingham MD Signed: 11/13/2020 3:27 PM Workstation Name: [id number] Critical Care Time: Yes Critical care time in (mins) excluding proc time.: 35 Critical care attestation.: If time is entered above; I have spent that time in minutes in the direct care of this critically ill patient, excluding procedure time. ED Disposition Clinical Impression: Hyperglycemia, Metabolic acidosis, Acute respiratory failure with hypoxia, Suspected COVID-19 virus infection, Ischemic cardiomyopathy Disposition: ADMITTED INPATIENT Is pt being admited?: Yes Does the pt Need Aspirin: Yes Condition: Serious Referrals: PRIMARY CARE, [Primary Care Provider] - 3-5 Days
[2020-11-13] MEDS ORDERED: ASPIRIN 81 MG TAB CHEW PO ONE (19:15)
[2020-11-13] MEDS ORDERED: SODIUM CHLORIDE 0.9% 500 ML 500 ML ONE (19:35)
[2020-11-13 20:31] LABS: C-Reactive Protein 7.7 mg/dL (0.00-1.30)
[2020-11-13 21:08] LABS: Blood Urea Nitrogen 19 mg/dL (9-20); Calcium 8.3 mg/dL (8.4-10.2); Hemolysis Index 6
[2020-11-13 21:09] LABS: BUN/Creatinine Ratio 32
[2020-11-13] MEDS ORDERED: oxyCODONE /ACETAMINOPHEN 5-325MG TAB PO PRN (21:53)
[2020-11-13] MEDS ORDERED: ALBUTEROL 2.5 MG/3 ML NEBU IH PRN (21:53)
[2020-11-13] MEDS ORDERED: DEXTROSE 50% IN WATER (25GM) 50 ML SYRINGE IV PRN (21:53)
[2020-11-13] MEDS ORDERED: HYDROmorphone 1 MG/1 ML INJ IV PRN (21:53)
[2020-11-13] MEDS ORDERED: ACETAMINOPHEN 325 MG TAB PO PRN (21:53)
[2020-11-13] MEDS ORDERED: ONDANSETRON 4 MG/2 ML INJ IV PRN (21:53)
[2020-11-13] MEDS ORDERED: HEPARIN 5,000 UNIT/1 ML VIAL SUB-Q SCH (22:00)
--- NOTE | 2020-11-13 22:06 | History and Physical Report ---
History of Present Illness Date of examination: 11/13/20 Date of admission: 11/13/20 Chief complaint: Shortness of breath Respiratory distress Hyperglycemia History of present illness: 35 years old male with past medical history of ischemic heart disease, CHF with EF of 30 to 35%, non-ST elevation [place] status post stent diabetes hypertension was brought to the hospital because of 3 days of cough, congestion, shortness of breath, malaise, fatigue, weakness, loss of taste and smell. He states he does not believe he has any chronic medical conditions. He states he does not take medications that he is aware of. His symptoms are constant for the past 3 days. They are getting worse. They worsen with physical exertion. They decreased with rest. Positive increase in urinary frequency, positive increase in thirst. Patient complained of generalized body aches. Positive loss of taste and smell. In the emergency room patient is found to have blood glucose of 369 lactic acid of 2.10 bicarb of 16, sodium 125. Chest x-ray shows diffuse bilateral airspace disease. This appearance may reflect infection in the appropriate clinical settings. We are admitting the patient because of hypoxia secondary to Covid pneumonia and hyperglycemia. Med rec is done and advance discharge planning is initiated Past History Past Medical History: diabetes, heart failure, hypertension Medications and Allergies Allergies Allergy/AdvReac Type Severity Reaction Status Date / Time No Known Allergies Allergy Verified 07/18/20 10:26 Home Medications Medication Instructions Recorded Confirmed Last Taken Type HYDROcodone/APAP 5-325 [[place] 1 each PO Q6HR PRN #10 tablet 11/17/19 07/18/20 Unknown Rx 5/325] Aspirin [Aspirin BABY CHEW TAB] 81 mg PO QDAY #60 tab.chew 07/20/20 Unknown Rx AtorvaSTATin [Lipitor] 20 mg PO QHS #60 tablet 07/20/20 Unknown Rx Clopidogrel [Plavix] 75 mg PO QDAY #60 tablet 07/20/20 Unknown Rx Insulin NPH Hum/Reg Insulin Hm 15 unit SQ BID #20 ml 07/20/20 Unknown Rx [Novolin 70-30 100 Unit/ml Vial] Metoprolol Xl [Metoprolol 25 mg PO QDAY #60 tablet 07/20/20 Unknown Rx SUCCINATE ER TAB] Spironolactone [Aldactone] 25 mg PO QDAY #60 tablet 07/20/20 Unknown Rx lisinopriL [Zestril TAB] 2.5 mg PO QDAY #60 tablet 07/20/20 Unknown Rx Active Meds: Active Medications Acetaminophen (Acetaminophen 325 Mg Tab) 650 mg PO Q4H PRN PRN Reason: Pain MILD(1-3)/Fever >100.5/BRAR Albuterol (Albuterol 2.5 Mg/3 Ml Nebu) 2.5 mg IH Q4HRT PRN PRN Reason: Shortness Of Breath Aspirin (Aspirin 81 Mg Tab Chew) 81 mg PO QDAY [facility] Atorvastatin Calcium (Atorvastatin 20 Mg Tab) 20 mg PO QHS MARY Clopidogrel Bisulfate (Clopidogrel 75 Mg Tab) 75 mg PO QDAY [facility] Dextrose (Dextrose 50% In Water (25gm) 50 Ml Syringe) 50 ml IV Q30MIN PRN; Protocol PRN Reason: Hypoglycemia Famotidine (Famotidine 20 Mg Tab) 20 mg PO BID [facility] Heparin Sodium (Porcine) (Heparin 5,000 Unit/1 Ml Vial) 5,000 unit SUB-Q Q8HR [facility] Hydromorphone HCl (Hydromorphone 1 Mg/1 Ml Inj) 0.5 mg IV Q3H PRN PRN Reason: Pain , Severe (7-10) Ceftriaxone Sodium (Rocephin/Ns 2 Gm/100 Ml) 2 gm in 100 mls @ 200 mls/hr IV Q24H MARY; Protocol Azithromycin (Zithromax/Ns) 500 mg in 250 mls @ 250 mls/hr IV Q24H MARY; Protocol Insulin Human Lispro (Insulin Lispro 100 Unit/Ml) 0 unit SUB-Q Q6HR MARY; Protocol Lisinopril (Lisinopril 5 Mg Tab) 2.5 mg PO QDAY [facility] Metoprolol Succinate (Metoprolol Succinate Xl 25 Mg Tab) 25 mg PO QDAY [facility] Ondansetron HCl (Ondansetron 4 Mg/2 Ml Inj) 4 mg IV Q8H PRN PRN Reason: Nausea And Vomiting Oxycodone/Acetaminophen (Oxycodone /Acetaminophen 5-325mg Tab) 1 tab PO Q6H PRN PRN Reason: Pain, Moderate (4-6) Sodium Chloride (Sodium Chloride 0.9% 10 Ml Flush Syringe) 10 ml IV BID [facility] Sodium Chloride (Sodium Chloride 0.9% 10 Ml Flush Syringe) 10 ml IV PRN PRN PRN Reason: LINE FLUSH Spironolactone (Spironolactone 25 Mg Tab) 25 mg PO QDAY MARY Review of Systems All systems: negative Constitutional: weakness, malaise, other (Loss of taste and smell) Cardiovascular: shortness of breath, dyspnea on exertion Respiratory: cough, shortness of breath, dyspnea on exertion Musculoskeletal: myalgias, other (Arthralgia) Exam - Constitutional Vitals: Temp Pulse Resp BP Pulse Ox 98.4 F 89 32 H 132/84 94 11/13/20 14:21 11/13/20 16:07 11/13/20 16:07 11/13/20 14:21 11/13/20 16:07 General appearance: Present: no acute distress, well-nourished - EENT Eyes: Present: PERRL ENT: hearing intact, clear oral mucosa - Neck Neck: Present: supple, normal ROM - Respiratory Respiratory effort: normal Respiratory: bilateral: diminished - Cardiovascular Heart Sounds: Present: S1 & S2. Absent: rub, click - Extremities Extremities: pulses symmetrical, No edema Peripheral Pulses: within normal limits - Abdominal General gastrointestinal: Present: soft, non-tender, non-distended, normal bowel sounds Male genitourinary: Present: normal - Integumentary Integumentary: Present: clear, warm, dry - Musculoskeletal Musculoskeletal: gait normal, strength equal bilaterally - Psychiatric Psychiatric: appropriate mood/affect, intact judgment & insight - Neurologic Neurologic: CNII-XII intact, moves all extremities HEART Score - HEART Score Troponin: Troponin T < 0.010 ng/mL (0.00-0.029) 11/13/20 16:07 Results - Labs CBC & Chem 7: 11/13/20 16:07 11/13/20 19:43 Labs: Laboratory Last Values WBC 4.4 K/mm3 (4.5-11.0) L 11/13/20 16:07 RBC 5.37 M/mm3 (3.65-5.03) H 11/13/20 16:07 Hgb 16.1 gm/dl (11.8-15.2) H 11/13/20 16:07 Hct 45.6 % (35.5-45.6) 11/13/20 16:07 MCV 85 fl (84-94) 11/13/20 16:07 MCH 30 pg (28-32) 11/13/20 16:07 MCHC 35 % (32-34) H 11/13/20 16:07 RDW 13.2 % (13.2-15.2) 11/13/20 16:07 Plt Count 166 K/mm3 (140-440) 11/13/20 16:07 Add Manual Diff Complete 11/13/20 16:07 Total Counted 100 11/13/20 16:07 Seg Neutrophils % Certified Registered [employer] 11/13/20 16:07 Seg Neuts % (Manual) 89.0 % (40.0-70.0) H 11/13/20 16:07 Lymphocytes % (Manual) 7.0 % (13.4-35.0) L 11/13/20 16:07 Monocytes % (Manual) 4.0 % (0.0-7.3) 11/13/20 16:07 Nucleated RBC % Not Reportable 11/13/20 16:07 Seg Neutrophils # Man 3.9 K/mm3 (1.8-7.7) 11/13/20 16:07 Band Neutrophils # 0.0 K/mm3 11/13/20 16:07 Lymphocytes # (Manual) 0.3 K/mm3 (1.2-5.4) L 11/13/20 16:07 Abs React Lymphs (Man) 0.0 K/mm3 11/13/20 16:07 Monocytes # (Manual) 0.2 K/mm3 (0.0-0.8) 11/13/20 16:07 Eosinophils # (Manual) 0.0 K/mm3 (0.0-0.4) 11/13/20 16:07 Basophils # (Manual) 0.0 K/mm3 (0.0-0.1) 11/13/20 16:07 Metamyelocytes # 0.0 K/mm3 11/13/20 16:07 Myelocytes # 0.0 K/mm3 11/13/20 16:07 Promyelocytes # 0.0 K/mm3 11/13/20 16:07 Blast Cells # 0.0 K/mm3 11/13/20 16:07 WBC Morphology Not Reportable 11/13/20 16:07 Hypersegmented Neuts Not Reportable 11/13/20 16:07 Hyposegmented Neuts Not Reportable 11/13/20 16:07 Hypogranular Neuts Not Reportable 11/13/20 16:07 Smudge Cells Not Reportable 11/13/20 16:07 Toxic Granulation Not Reportable 11/13/20 16:07 Toxic Vacuolation Not Reportable 11/13/20 16:07 Dohle Bodies Not Reportable 11/13/20 16:07 Pelger-Huet Anomaly Not Reportable 11/13/20 16:07 Sarmda Rods Not Reportable 11/13/20 16:07 Platelet Estimate Not Reportable 11/13/20 16:07 Clumped Platelets Not Reportable 11/13/20 16:07 Plt Clumps, EDTA Not Reportable 11/13/20 16:07 Large Platelets Not Reportable 11/13/20 16:07 Giant Platelets Not Reportable 11/13/20 16:07 Platelet Satelliting Not Reportable 11/13/20 16:07 Plt Morphology Comment Not Reportable 11/13/20 16:07 RBC Morphology Normal 11/13/20 16:07 Dimorphic RBCs Not Reportable 11/13/20 16:07 Polychromasia Not Reportable 11/13/20 16:07 Hypochromasia Not Reportable 11/13/20 16:07 Poikilocytosis Not Reportable 11/13/20 16:07 Anisocytosis Not Reportable 11/13/20 16:07 Microcytosis Not Reportable 11/13/20 16:07 Macrocytosis Not Reportable 11/13/20 16:07 Spherocytes Not Reportable 11/13/20 16:07 Pappenheimer Bodies Not Reportable 11/13/20 16:07 Sickle Cells Not Reportable 11/13/20 16:07 Target Cells Not Reportable 11/13/20 16:07 Tear Drop Cells Not Reportable 11/13/20 16:07 Ovalocytes Not Reportable 11/13/20 16:07 Helmet Cells Not Reportable 11/13/20 16:07 [place] Bodies Not Reportable 11/13/20 16:07 [place] Rings Not Reportable 11/13/20 16:07 Ilya Cells Not Reportable 11/13/20 16:07 Bite Cells Not Reportable 11/13/20 16:07 Crenated Cell Not Reportable 11/13/20 16:07 Elliptocytes Not Reportable 11/13/20 16:07 Acanthocytes (Spur) Not Reportable 11/13/20 16:07 Rouleaux Not Reportable 11/13/20 16:07 Hemoglobin C Crystals Not Reportable 11/13/20 16:07 Schistocytes Not Reportable 11/13/20 16:07 Malaria parasites Not Reportable 11/13/20 16:07 Martin Bodies Not Reportable 11/13/20 16:07 Hem Pathologist Commnt No 11/13/20 16:07 D-Dimer 5272.39 ng/mlDDU (0-234) H 11/13/20 19:43 VBG pH 7.427 (7.320-7.420) H 11/13/20 19:43 Sodium 125 mmol/L (137-145) L 11/13/20 19:43 Potassium 4.9 mmol/L (3.6-5.0) 11/13/20 19:43 Chloride 93.7 mmol/L (98-107) L 11/13/20 19:43 Carbon Dioxide 16 mmol/L (22-30) L 11/13/20 19:43 Anion Gap 20 mmol/L 11/13/20 19:43 BUN 19 mg/dL (9-20) 11/13/20 19:43 Creatinine 0.6 mg/dL (0.8-1.3) L 11/13/20 19:43 Estimated GFR > 60 ml/min 11/13/20 19:43 BUN/Creatinine Ratio 32 % 11/13/20 19:43 Glucose 369 mg/dL (75-100) H 11/13/20 19:43 Glucose 373 mg/dL (75-100) H 11/13/20 19:43 POC Glucose 349 mg/dL (70-105) H 11/13/20 20:04 Ketones Quantitative Small (Negative) 11/13/20 19:43 Lactic Acid 2.10 mmol/L (0.7-2.0) H* 11/13/20 20:50 Calcium 8.3 mg/dL (8.4-10.2) L 11/13/20 19:43 Magnesium 2.10 mg/dL (1.7-2.3) 11/13/20 19:43 Ferritin 5737.0 ng/mL (30.0-300.0) H 11/13/20 19:43 Total Bilirubin 0.50 mg/dL (0.1-1.2) 11/13/20 16:07 AST 63 units/L (5-40) H 11/13/20 16:07 ALT 32 units/L (7-56) 11/13/20 16:07 Alkaline Phosphatase 85 units/L (35-129) 11/13/20 16:07 Lactate Dehydrogenase 1047 units/L (91-180) H 11/13/20 19:43 Total Creatine Kinase 219 units/L (55-170) H 11/13/20 19:43 Troponin T < 0.010 ng/mL (0.00-0.029) 11/13/20 16:07 C-Reactive Protein 7.70 mg/dL (0.00-1.30) H 11/13/20 19:43 NT-Pro-B Natriuret Pep 1862 pg/mL (0-450) H 11/13/20 16:07 Total Protein 7.2 g/dL (6.3-8.2) 11/13/20 16:07 Albumin 3.0 g/dL (3.9-5) L 11/13/20 16:07 Albumin/Globulin Ratio 0.7 % 11/13/20 16:07 - Imaging and Cardiology Chest x-ray: report reviewed Assessment and Plan VTE prophylaxis?: Chemical Plan of care discussed with patient/family: Yes - Patient Problems (1) Acute respiratory failure with hypoxia Current Visit: Yes Status: Acute Plan to address problem: Admit the patient to the medical telemetry. Oxygen via nasal cannula 3 to per minute. DuoNeb by nebulizer every 4 hours. Rocephin 2 g IV daily and Zithromax 500 mg IV daily. Dexamethasone 6 mg IV daily. We do the blood cultures sputum culture. Follow the Covid PCR and Covid inflammatory marker. Reconsult pulmonary as well as infectious disease evaluation (2) Suspected COVID-19 virus infection Current Visit: Yes Status: Acute Plan to address problem: Oxygen via nasal cannula 3 to per minute. DuoNeb by nebulizer every 4 hours. Rocephin 2 g IV daily and Zithromax 500 mg IV daily. Dexamethasone 6 mg IV daily. We do the blood cultures sputum culture. Follow the Covid PCR and Covid inflammatory marker. Reconsult pulmonary as well as infectious disease evaluation (3) Hyperglycemia Current Visit: Yes Status: Acute Plan to address problem: We will put the patient on diabetic diet. Insulin sliding scale with Humalog coverage every 6 hours high dose coverage. Lantus 15 mg subcu every 12 hours. Will consult diabetic education. Recheck CBC BMP in the morning (4) Metabolic acidosis Current Visit: Yes Status: Acute Plan to address problem: We will put the patient on low-dose IV fluid half-normal saline at the rate of 75 cc/h. Rocephin 2 g IV daily and Zithromax 500 mg IV daily. We also put the patient on Humalog sliding scale and Lantus 15 units subcu every 12 hours. Recheck CBC BMP in the morning (5) Ischemic cardiomyopathy Current Visit: Yes Status: Chronic Plan to address problem: Stable. We will monitor the patient closely. We continue the home medication. Aspirin 81 mg, Plavix 75 mg. Lipitor 20 mg. Lisinopril 2.5 mg p.o. daily. We order echocardiogram. Consult cardiology if needed (6) HTN (hypertension) Current Visit: No Status: Chronic Qualifiers: Hypertension type: essential hypertension Plan to address problem: Lisinopril 2.5 mg p.o. daily. Hydralazine 10 mg IV every 6 hours as needed. Metoprolol 25 mg p.o. daily. (7) History of tobacco use Current Visit: No Status: Chronic Plan to address problem: We counseled regarding quitting smoking. (8) DVT prophylaxis Current Visit: Yes Status: Acute Plan to address problem: Heparin 5000 units subcu every 8 hours for DVT prophylaxis. Pepcid 20 mg p.o. twice daily for GI prophylaxis. Patient is a full code.
[2020-11-13] MEDS ORDERED: hydrALAZINE 20 MG/1 ML INJ IV PRN (22:14)
[2020-11-13] MEDS ORDERED: SODIUM CHLORIDE 0.45% 1000 ML 1,000 ML IV SCH ×2 (23:00)
[2020-11-14 06:33] LABS: BUN/Creatinine Ratio 28; Blood Urea Nitrogen 22 mg/dL (9-20); Calcium 7.9 mg/dL (8.4-10.2); Hemolysis Index 76
[2020-11-14 06:34] LABS: Basophils % (Auto) 0.4 % (0.0-1.8); Hematocrit 45.1 % (35.5-45.6); Hemoglobin 15.8 gm/dl (11.8-15.2); Lymphocytes # (Auto) 0.7 K/mm3 (1.2-5.4); Lymphocytes % (Auto) 12.2 % (13.4-35.0); Mean Corpuscular HGB Conc 35 % (32-34); Mean Corpuscular Volume 86 fl (84-94); Monocytes # (Auto) 0.7 K/mm3 (0.0-0.8); Platelet Count 184 K/mm3 (140-440); Red Blood Count 5.27 M/mm3 (3.65-5.03); Red Cell Distribution Width 13.2 % (13.2-15.2)
[2020-11-14] MEDS ORDERED: INSULIN GLARGINE 100 UNITS/ML SUB-Q SCH (10:00)
[2020-11-14] MEDS ORDERED: SPIRONOLACTONE 25 MG TAB PO SCH (10:00)
[2020-11-14] MEDS: FAMOTIDINE 20 MG TAB PO SCH ×2 (10:41→22:21)
[2020-11-14] MEDS: dexAMETHasone 4 MG/ML VIAL IV SCH (10:41)
[2020-11-14] MEDS: CLOPIDOGREL 75 MG TAB PO SCH (10:41)
[2020-11-14] MEDS: LISINOPRIL 5 MG TAB PO SCH (10:41)
[2020-11-14] MEDS: ASPIRIN 81 MG TAB CHEW PO SCH (10:42)
[2020-11-14] MEDS: cefTRIAXone/NS 2 GM/100 ML 2 GM/100 ML BAG IV SCH (10:43)
[2020-11-14] MEDS ORDERED: ENOXAPARIN 100 MG/1 ML INJ SUB-Q SCH (11:00)
--- NOTE | 2020-11-14 11:29 | Electrocardiograph Report ---
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 Electronically Signed On 11-14-2020 11:28:39 EDT by Lior Garcias
[2020-11-14] MEDS: AZITHROMYCIN/NS 500 MG/250 ML 500 MG/250 ML BAG IV SCH (12:05)
[2020-11-14] MEDS: METOPROLOL SUCCINATE XL 25 MG TAB PO SCH (12:05)
[2020-11-14] MEDS: INSULIN GLARGINE 100 UNITS/ML SUB-Q SCH ×2 (12:05→22:23)
[2020-11-14] MEDS: INSULIN LISPRO 100 UNIT/ML SUB-Q SCH ×2 (12:41→18:05)
--- NOTE | 2020-11-14 13:01 | Vascular Lab Report ---
DUPLEX DOPPLER LOWER EXTREMITY VEINS, BILATERAL INDICATION / CLINICAL INFORMATION: elevated d.dimer TECHNIQUE: Duplex doppler imaging was performed through the veins of both lower extremities using neyda ous compression and other maneuvers. COMPARISON: None available. FINDINGS: RIGHT COMMON FEMORAL VEIN: Negative. RIGHT FEMORAL VEIN: Negative. RIGHT POPLITEAL VEIN: Negative. RIGHT CALF VEINS: Negative. LEFT COMMON FEMORAL VEIN: Negative. LEFT FEMORAL VEIN: Negative. LEFT POPLITEAL VEIN: Negative. LEFT CALF VEINS: Negative. ADDITIONAL FINDINGS: None. IMPRESSION: No sonographic evidence for DVT in either lower extremity. Signer Name: Johny Rodriguez MD Signed: 11/14/2020 12:56 PM Workstation Name: [id number]
--- NOTE | 2020-11-14 13:11 | Progress Note ---
Assessment and Plan Assessment and plan: 35 years old male with past medical history of ischemic heart disease, CHF with EF of 30 to 35%, non-ST elevation DE status post stent diabetes hypertension was brought to the hospital because of 3 days of cough, congestion, shortness of breath, malaise, fatigue, weakness, loss of taste and smell. He states he does not believe he has any chronic medical conditions. He states he does not take medications that he is aware of. His symptoms are constant for the past 3 days. They are getting worse. They worsen with physical exertion. They decreased with rest. Positive increase in urinary frequency, positive increase in thirst. Patient complained of generalized body aches. Positive loss of taste and smell. In the emergency room patient is found to have blood glucose of 369 lactic acid of 2.10 bicarb of 16, sodium 125. Chest x-ray shows diffuse bilateral airspace disease. This appearance may reflect infection in the appropriate clinical settings. We are admitting the patient because of hypoxia secondary to Covid pneumonia and hyperglycemia. Med rec is done and advance discharge planning is initiated - Patient Problems (1) Acute respiratory failure with hypoxia Current Visit: Yes Status: Acute Plan to address problem: Admit the patient to the medical telemetry. Oxygen via nasal cannula 3 to per minute. DuoNeb by nebulizer every 4 hours. Rocephin 2 g IV daily and Zithromax 500 mg IV daily. Dexamethasone 6 mg IV daily. We do the blood cultures sputum culture. Follow the Covid PCR and Covid inflammatory marker. Reconsult pulmonary as well as infectious disease evaluation (2) Suspected COVID-19 virus infection Current Visit: Yes Status: Acute Plan to address problem: Oxygen via nasal cannula 3 to per minute. DuoNeb by nebulizer every 4 hours. Rocephin 2 g IV daily and Zithromax 500 mg IV daily. Dexamethasone 6 mg IV daily. We do the blood cultures sputum culture. Follow the Covid PCR and Covid inflammatory marker. Reconsult pulmonary as well as infectious disease evaluation (3) Hyperglycemia Current Visit: Yes Status: Acute Plan to address problem: We will put the patient on diabetic diet. Insulin sliding scale with Humalog coverage every 6 hours high dose coverage. Lantus 15 mg subcu every 12 hours. Will consult diabetic education. Recheck CBC BMP in the morning (4) Metabolic acidosis Current Visit: Yes Status: Acute Plan to address problem: We will put the patient on low-dose IV fluid half-normal saline at the rate of 75 cc/h. Rocephin 2 g IV daily and Zithromax 500 mg IV daily. We also put the patient on Humalog sliding scale and Lantus 15 units subcu every 12 hours. Recheck CBC BMP in the morning (5) Ischemic cardiomyopathy Current Visit: Yes Status: Chronic Plan to address problem: Stable. We will monitor the patient closely. We continue the home medication. Aspirin 81 mg, Plavix 75 mg. Lipitor 20 mg. Lisinopril 2.5 mg p.o. daily. We order echocardiogram. Consult cardiology if needed (6) HTN (hypertension) Current Visit: No Status: Chronic Qualifiers: Hypertension type: essential hypertension Plan to address problem: Lisinopril 2.5 mg p.o. daily. Hydralazine 10 mg IV every 6 hours as needed. Metoprolol 25 mg p.o. daily. (7) History of tobacco use Current Visit: No Status: Chronic Plan to address problem: We counseled regarding quitting smoking. (8) DVT prophylaxis Current Visit: Yes Status: Acute Plan to address problem: Heparin 5000 units subcu every 8 hours for DVT prophylaxis. Pepcid 20 mg p.o. twice daily for GI prophylaxis. Patient is a full code. 11/14: Continue current management. Will adjust insulin for better coverage. Patient noted to have increasing gallop placed on full dose anticoagulation. We will continue to monitor sodium for hyponatremia. This could be related to the hypoglycemia and anticipate that it will correct with correction of blood glucose. Continue antibiotics. Will obtain pulmonary consultation to assist with management of this severely ill patient. Prognosis guarded encourage prone positioning while we await Covid testing. History Interval history: Patient seen and examined today remains with shortness of breath. Abnormal labs. Currently on 6 L of oxygen Hospitalist Physical - Physical exam Narrative exam: General appearance: Present: Mild respiratory distress, well-nourished - EENT Eyes: Present: PERRL ENT: hearing intact, clear oral mucosa - Neck Neck: Present: supple, normal ROM - Respiratory Respiratory effort: normal Respiratory: bilateral: diminished - Cardiovascular Heart Sounds: Present: S1 & S2. Absent: rub, click - Extremities Extremities: pulses symmetrical, No edema Peripheral Pulses: within normal limits - Abdominal General gastrointestinal: Present: soft, non-tender, non-distended, normal bowel sounds Male genitourinary: Present: normal - Integumentary Integumentary: Present: clear, warm, dry - Musculoskeletal Musculoskeletal: gait normal, strength equal bilaterally - Psychiatric Psychiatric: appropriate mood/affect, intact judgment & insight - Neurologic Neurologic: CNII-XII intact, moves all extremities - Constitutional Vitals: Temp Pulse Resp BP Pulse Ox 98.4 F 89 32 H 130/82 90 11/13/20 14:21 11/13/20 16:07 11/13/20 16:07 11/14/20 10:41 11/14/20 10:41 General appearance: Present: no acute distress, well-nourished HEART Score - HEART Score Troponin: Troponin T < 0.010 ng/mL (0.00-0.029) 11/13/20 16:07 Results - Labs CBC & Chem 7: 11/14/20 05:13 11/14/20 05:13 Labs: Laboratory Last Values WBC 5.7 K/mm3 (4.5-11.0) 11/14/20 05:13 RBC 5.27 M/mm3 (3.65-5.03) H 11/14/20 05:13 Hgb 15.8 gm/dl (11.8-15.2) H 11/14/20 05:13 Hct 45.1 % (35.5-45.6) 11/14/20 05:13 MCV 86 fl (84-94) 11/14/20 05:13 MCH 30 pg (28-32) 11/14/20 05:13 MCHC 35 % (32-34) H 11/14/20 05:13 RDW 13.2 % (13.2-15.2) 11/14/20 05:13 Plt Count 184 K/mm3 (140-440) 11/14/20 05:13 Lymph % (Auto) 12.2 % (13.4-35.0) L 11/14/20 05:13 Motley % (Auto) 13.0 % (0.0-7.3) H 11/14/20 05:13 Eos % (Auto) 0.0 % (0.0-4.3) 11/14/20 05:13 Baso % (Auto) 0.4 % (0.0-1.8) 11/14/20 05:13 Lymph # (Auto) 0.7 K/mm3 (1.2-5.4) L 11/14/20 05:13 Motley # (Auto) 0.7 K/mm3 (0.0-0.8) 11/14/20 05:13 Eos # (Auto) 0.0 K/mm3 (0.0-0.4) 11/14/20 05:13 Baso # (Auto) 0.0 K/mm3 (0.0-0.1) 11/14/20 05:13 Add Manual Diff Complete 11/13/20 16:07 Total Counted 100 11/13/20 16:07 Seg Neutrophils % 74.4 % (40.0-70.0) H 11/14/20 05:13 Seg Neuts % (Manual) 89.0 % (40.0-70.0) H 11/13/20 16:07 Lymphocytes % (Manual) 7.0 % (13.4-35.0) L 11/13/20 16:07 Monocytes % (Manual) 4.0 % (0.0-7.3) 11/13/20 16:07 Nucleated RBC % Not Reportable 11/13/20 16:07 Seg Neutrophils # 4.2 K/mm3 (1.8-7.7) 11/14/20 05:13 Seg Neutrophils # Man 3.9 K/mm3 (1.8-7.7) 11/13/20 16:07 Band Neutrophils # 0.0 K/mm3 11/13/20 16:07 Lymphocytes # (Manual) 0.3 K/mm3 (1.2-5.4) L 11/13/20 16:07 Abs React Lymphs (Man) 0.0 K/mm3 11/13/20 16:07 Monocytes # (Manual) 0.2 K/mm3 (0.0-0.8) 11/13/20 16:07 Eosinophils # (Manual) 0.0 K/mm3 (0.0-0.4) 11/13/20 16:07 Basophils # (Manual) 0.0 K/mm3 (0.0-0.1) 11/13/20 16:07 Metamyelocytes # 0.0 K/mm3 11/13/20 16:07 Myelocytes # 0.0 K/mm3 11/13/20 16:07 Promyelocytes # 0.0 K/mm3 11/13/20 16:07 Blast Cells # 0.0 K/mm3 11/13/20 16:07 WBC Morphology Not Reportable 11/13/20 16:07 Hypersegmented Neuts Not Reportable 11/13/20 16:07 Hyposegmented Neuts Not Reportable 11/13/20 16:07 Hypogranular Neuts Not Reportable 11/13/20 16:07 Smudge Cells Not Reportable 11/13/20 16:07 Toxic Granulation Not Reportable 11/13/20 16:07 Toxic Vacuolation Not Reportable 11/13/20 16:07 Dohle Bodies Not Reportable 11/13/20 16:07 Pelger-Huet Anomaly Not Reportable 11/13/20 16:07 Sarmad Rods Not Reportable 11/13/20 16:07 Platelet Estimate Not Reportable 11/13/20 16:07 Clumped Platelets Not Reportable 11/13/20 16:07 Plt Clumps, EDTA Not Reportable 11/13/20 16:07 Large Platelets Not Reportable 11/13/20 16:07 Giant Platelets Not Reportable 11/13/20 16:07 Platelet Satelliting Not Reportable 11/13/20 16:07 Plt Morphology Comment Not Reportable 11/13/20 16:07 RBC Morphology Normal 11/13/20 16:07 Dimorphic RBCs Not Reportable 11/13/20 16:07 Polychromasia Not Reportable 11/13/20 16:07 Hypochromasia Not Reportable 11/13/20 16:07 Poikilocytosis Not Reportable 11/13/20 16:07 Anisocytosis Not Reportable 11/13/20 16:07 Microcytosis Not Reportable 11/13/20 16:07 Macrocytosis Not Reportable 11/13/20 16:07 Spherocytes Not Reportable 11/13/20 16:07 Pappenheimer Bodies Not Reportable 11/13/20 16:07 Sickle Cells Not Reportable 11/13/20 16:07 Target Cells Not Reportable 11/13/20 16:07 Tear Drop Cells Not Reportable 11/13/20 16:07 Ovalocytes Not Reportable 11/13/20 16:07 Helmet Cells Not Reportable 11/13/20 16:07 Koehler-Oakes Bodies Not Reportable 11/13/20 16:07 Sumner Rings Not Reportable 11/13/20 16:07 Ilya Cells Not Reportable 11/13/20 16:07 Bite Cells Not Reportable 11/13/20 16:07 Crenated Cell Not Reportable 11/13/20 16:07 Elliptocytes Not Reportable 11/13/20 16:07 Acanthocytes (Spur) Not Reportable 11/13/20 16:07 Rouleaux Not Reportable 11/13/20 16:07 Hemoglobin C Crystals Not Reportable 11/13/20 16:07 Schistocytes Not Reportable 11/13/20 16:07 Malaria parasites Not Reportable 11/13/20 16:07 Martin Bodies Not Reportable 11/13/20 16:07 Hem Pathologist Commnt No 11/13/20 16:07 D-Dimer 5272.39 ng/mlDDU (0-234) H 11/13/20 19:43 VBG pH 7.427 (7.320-7.420) H 11/13/20 19:43 Sodium 127 mmol/L (137-145) L 11/14/20 05:13 Potassium 5.3 mmol/L (3.6-5.0) H 11/14/20 05:13 Chloride 94.5 mmol/L (98-107) L 11/14/20 05:13 Carbon Dioxide 18 mmol/L (22-30) L 11/14/20 05:13 Anion Gap 20 mmol/L 11/14/20 05:13 BUN 22 mg/dL (9-20) H 11/14/20 05:13 Creatinine 0.8 mg/dL (0.8-1.3) 11/14/20 05:13 Estimated GFR > 60 ml/min 11/14/20 05:13 BUN/Creatinine Ratio 28 % 11/14/20 05:13 Glucose 367 mg/dL (75-100) H 11/14/20 05:13 POC Glucose 412 mg/dL (70-105) H 11/14/20 11:50 Ketones Quantitative Small (Negative) 11/13/20 19:43 Lactic Acid 2.40 mmol/L (0.7-2.0) H* 11/14/20 05:13 Calcium 7.9 mg/dL (8.4-10.2) L 11/14/20 05:13 Magnesium 2.10 mg/dL (1.7-2.3) 11/13/20 19:43 Ferritin 5737.0 ng/mL (30.0-300.0) H 11/13/20 19:43 Total Bilirubin 0.50 mg/dL (0.1-1.2) 11/13/20 16:07 AST 63 units/L (5-40) H 11/13/20 16:07 ALT 32 units/L (7-56) 11/13/20 16:07 Alkaline Phosphatase 85 units/L (35-129) 11/13/20 16:07 Lactate Dehydrogenase 1047 units/L (91-180) H 11/13/20 19:43 Total Creatine Kinase 219 units/L (55-170) H 11/13/20 19:43 Troponin T < 0.010 ng/mL (0.00-0.029) 11/13/20 16:07 C-Reactive Protein 7.70 mg/dL (0.00-1.30) H 11/13/20 19:43 NT-Pro-B Natriuret Pep 1862 pg/mL (0-450) H 11/13/20 16:07 Total Protein 7.2 g/dL (6.3-8.2) 11/13/20 16:07 Albumin 3.0 g/dL (3.9-5) L 11/13/20 16:07 Albumin/Globulin Ratio 0.7 % 11/13/20 16:07 Microbiology: Microbiology 11/13/20 19:43 Peripheral/Venous Blood Culture - Preliminary Culture in Progress 11/13/20 19:43 Peripheral/Venous Blood Culture - Preliminary Culture in Progress Active Medications - Current Medications Current Medications: Generic Name Dose Route Start Last Admin Trade Name Freq PRN Reason Stop Dose Admin Acetaminophen 650 mg 11/13/20 21:53 Acetaminophen 325 Mg Tab PO Q4H PRN Pain MILD(1-3)/Fever >100.5/BRAR Albuterol 2.5 mg 11/13/20 21:53 Albuterol 2.5 Mg/3 Ml Nebu IH Q4HRT PRN Shortness Of Breath Aspirin 81 mg 11/14/20 10:00 11/14/20 10:42 Aspirin 81 Mg Tab Chew PO 81 mg QDAY MARY Administration Atorvastatin Calcium 20 mg 11/13/20 22:00 Atorvastatin 20 Mg Tab PO QHS MARY Clopidogrel Bisulfate 75 mg 11/14/20 10:00 11/14/20 10:41 Clopidogrel 75 Mg Tab PO 75 mg QDAY MARY Administration Dexamethasone 6 mg 11/14/20 10:00 11/14/20 10:41 Dexamethasone 4 Mg/Ml Vial IV 11/22/20 10:01 6 mg DAILY MARY Administration Dextrose 0 ml 11/13/20 21:53 Dextrose 50% In Water (25gm) 50 Ml Syringe IV Q30MIN PRN Hypoglycemia Protocol Enoxaparin Sodium 80 mg 11/14/20 11:00 11/14/20 12:05 Enoxaparin 100 Mg/1 Ml Inj 1 mg/kg (80 mg) 80 mg SUB-Q Administration Q12HR [facility] Protocol Famotidine 20 mg 11/13/20 22:00 11/14/20 10:41 Famotidine 20 Mg Tab PO 20 mg BID MARY Administration Hydralazine HCl 10 mg 11/13/20 22:14 Hydralazine 20 Mg/1 Ml Inj IV Q6H PRN Blood Pressure Hydromorphone HCl 0.5 mg 11/13/20 21:53 Hydromorphone 1 Mg/1 Ml Inj IV Q3H PRN Pain , Severe (7-10) Ceftriaxone Sodium 2 gm in 100 mls @ 200 mls/hr 11/14/20 10:00 11/14/20 10:43 Rocephin/Ns 2 Gm/100 Ml IV 11/17/20 10:29 200 mls/hr Q24HR MARY Administration Protocol Azithromycin 500 mg in 250 mls @ 250 mls/hr 11/14/20 10:00 11/14/20 12:05 Zithromax/Ns IV 11/17/20 10:59 250 mls/hr Q24HR MARY Administration Protocol Sodium Chloride 1,000 mls @ 75 mls/hr 11/13/20 23:00 Nacl 0.45% 1000 Ml IV DIRECT MARY Insulin Glargine 20 units 11/14/20 10:30 11/14/20 12:05 Insulin Glargine 100 Units/Ml SUB-Q 20 units BID MARY Administration Insulin Human Lispro 0 unit 11/14/20 00:00 11/14/20 12:41 Insulin Lispro 100 Unit/Ml SUB-Q 10 unit Q6HR MARY Administration Protocol Insulin Human Regular 20 units 11/14/20 13:07 Insulin Regular, Human 100 Units/1 Ml SUB-Q 11/14/20 13:08 ONCE ONE Lisinopril 2.5 mg 11/14/20 10:00 11/14/20 10:41 Lisinopril 5 Mg Tab PO 2.5 mg QDAY MARY Administration Metoprolol Succinate 25 mg 11/14/20 10:00 11/14/20 12:05 Metoprolol Succinate Xl 25 Mg Tab PO 25 mg QDAY MARY Administration Ondansetron HCl 4 mg 11/13/20 21:53 Ondansetron 4 Mg/2 Ml Inj IV Q8H PRN Nausea And Vomiting Oxycodone/Acetaminophen 1 tab 11/13/20 21:53 Oxycodone /Acetaminophen 5-325mg Tab PO Q6H PRN Pain, Moderate (4-6) Sodium Chloride 10 ml 11/13/20 22:00 11/14/20 10:42 Sodium Chloride 0.9% 10 Ml Flush Syringe IV 10 ml BID MARY Administration Sodium Chloride 10 ml 11/13/20 21:53 Sodium Chloride 0.9% 10 Ml Flush Syringe IV PRN PRN LINE FLUSH Spironolactone 25 mg 11/15/20 10:00 Spironolactone 25 Mg Tab PO QDAY MARY
[2020-11-14] MEDS ORDERED: INSULIN REGULAR, HUMAN 100 UNITS/1 ML SUB-Q ONE (13:15)
--- NOTE | 2020-11-14 13:27 | Consultation ---
History of Present Illness - Reason for Consult Consult date: 11/14/20 pneumonia, COVID PUI Requesting physician: YASH HAYES - History of Present Illness The patient is a 35-year-old male with CAD, HTN, diabetes admitted to the hospital with cough, shortness of breath, fatigue, loss of taste and smell. Upon initial evaluation in the ER, noted to have hyperglycemia, hyponatremia, acidosis. Chest x-ray showed bilateral pneumonia. COVID-19 test is pending. Labs also revealed CRP of 7.7, LDH 1047, ferritin 5737, D-dimer 5272. DVT scan negative. Hypoxic requiring nasal cannula oxygen Review of Systems: reviewed in the chart, unable to obtain, minimize risk of transmission Past History Past Medical History: diabetes, heart failure, hypertension Medications and Allergies Allergies Allergy/AdvReac Type Severity Reaction Status Date / Time No Known Allergies Allergy Verified 07/18/20 10:26 Home Medications Medication Instructions Recorded Confirmed Last Taken Type HYDROcodone/APAP 5-325 [[place] 1 each PO Q6HR PRN #10 tablet 11/17/19 07/18/20 Unknown Rx 5/325] Aspirin [Aspirin BABY CHEW TAB] 81 mg PO QDAY #60 tab.chew 07/20/20 Unknown Rx AtorvaSTATin [Lipitor] 20 mg PO QHS #60 tablet 07/20/20 Unknown Rx Clopidogrel [Plavix] 75 mg PO QDAY #60 tablet 07/20/20 Unknown Rx Insulin NPH Hum/Reg Insulin Hm 15 unit SQ BID #20 ml 07/20/20 Unknown Rx [Novolin 70-30 100 Unit/ml Vial] Metoprolol Xl [Metoprolol 25 mg PO QDAY #60 tablet 07/20/20 Unknown Rx SUCCINATE ER TAB] Spironolactone [Aldactone] 25 mg PO QDAY #60 tablet 07/20/20 Unknown Rx lisinopriL [Zestril TAB] 2.5 mg PO QDAY #60 tablet 07/20/20 Unknown Rx Active Meds: Active Medications Acetaminophen (Acetaminophen 325 Mg Tab) 650 mg PO Q4H PRN PRN Reason: Pain MILD(1-3)/Fever >100.5/BRAR Albuterol (Albuterol 2.5 Mg/3 Ml Nebu) 2.5 mg IH Q4HRT PRN PRN Reason: Shortness Of Breath Aspirin (Aspirin 81 Mg Tab Chew) 81 mg PO QDAY [facility] Last Admin: 11/14/20 10:42 Dose: 81 mg Documented by: Atorvastatin Calcium (Atorvastatin 20 Mg Tab) 20 mg PO QHS MARY Clopidogrel Bisulfate (Clopidogrel 75 Mg Tab) 75 mg PO QDAY [facility] Last Admin: 11/14/20 10:41 Dose: 75 mg Documented by: Dexamethasone (Dexamethasone 4 Mg/Ml Vial) 6 mg IV DAILY MARY Stop: 11/22/20 10:01 Last Admin: 11/14/20 10:41 Dose: 6 mg Documented by: Dextrose (Dextrose 50% In Water (25gm) 50 Ml Syringe) 0 ml IV Q30MIN PRN; Protocol PRN Reason: Hypoglycemia Enoxaparin Sodium (Enoxaparin 100 Mg/1 Ml Inj) 80 mg 1 mg/kg (80 mg) SUB-Q Q12HR [facility]; Protocol Last Admin: 11/14/20 12:05 Dose: 80 mg Documented by: Famotidine (Famotidine 20 Mg Tab) 20 mg PO BID [facility] Last Admin: 11/14/20 10:41 Dose: 20 mg Documented by: Hydralazine HCl (Hydralazine 20 Mg/1 Ml Inj) 10 mg IV Q6H PRN PRN Reason: Blood Pressure Hydromorphone HCl (Hydromorphone 1 Mg/1 Ml Inj) 0.5 mg IV Q3H PRN PRN Reason: Pain , Severe (7-10) Ceftriaxone Sodium (Rocephin/Ns 2 Gm/100 Ml) 2 gm in 100 mls @ 200 mls/hr IV Q24HR MARY; Protocol Stop: 11/17/20 10:29 Last Admin: 11/14/20 10:43 Dose: 200 mls/hr Documented by: Azithromycin (Zithromax/Ns) 500 mg in 250 mls @ 250 mls/hr IV Q24HR MARY; Protocol Stop: 11/17/20 10:59 Last Admin: 11/14/20 12:05 Dose: 250 mls/hr Documented by: Sodium Chloride (Nacl 0.45% 1000 Ml) 1,000 mls @ 75 mls/hr IV DIRECT MARY REMDESIVIR 200 mg/ Sodium (Chloride) 250 mls @ 500 mls/hr IV ONCE ONE Stop: 11/14/20 13:53 REMDESIVIR 100 mg/ Sodium (Chloride) 250 mls @ 500 mls/hr IV Q24HR@2100 [facility] Stop: 11/18/20 21:29 Insulin Glargine (Insulin Glargine 100 Units/Ml) 20 units SUB-Q BID [facility] Last Admin: 11/14/20 12:05 Dose: 20 units Documented by: Insulin Human Lispro (Insulin Lispro 100 Unit/Ml) 0 unit SUB-Q Q6HR [facility]; Protocol Last Admin: 11/14/20 12:41 Dose: 10 unit Documented by: Lisinopril (Lisinopril 5 Mg Tab) 2.5 mg PO QDAY [facility] Last Admin: 11/14/20 10:41 Dose: 2.5 mg Documented by: Metoprolol Succinate (Metoprolol Succinate Xl 25 Mg Tab) 25 mg PO QDAY [facility] Last Admin: 11/14/20 12:05 Dose: 25 mg Documented by: Ondansetron HCl (Ondansetron 4 Mg/2 Ml Inj) 4 mg IV Q8H PRN PRN Reason: Nausea And Vomiting Oxycodone/Acetaminophen (Oxycodone /Acetaminophen 5-325mg Tab) 1 tab PO Q6H PRN PRN Reason: Pain, Moderate (4-6) Sodium Chloride (Sodium Chloride 0.9% 10 Ml Flush Syringe) 10 ml IV BID [facility] Last Admin: 11/14/20 10:42 Dose: 10 ml Documented by: Sodium Chloride (Sodium Chloride 0.9% 10 Ml Flush Syringe) 10 ml IV PRN PRN PRN Reason: LINE FLUSH Sodium Chloride (Sodium Chloride 0.9% 50 Ml Ivpb) 50 ml IV Q24HR@2100 [facility] Stop: 11/18/20 21:01 Spironolactone (Spironolactone 25 Mg Tab) 25 mg PO QDAY [facility] Physical Examination - Physical Exam Narrative exam: Physical Exam (reviewed in chart to minimize risk of transmission) Constitutional: deferred Head, Ears, Nose: deferred Eyes: deferred Neck: deferred Oral: deferred Cardiovascular: deferred Respiratory: deferred GI: deferred Musculoskeletal: deferred Skin: deferred Hem/Lymphatic: deferred Psych: deferred Neurological: deferred - Constitutional Vitals: Vital Signs Temp Pulse Resp BP Pulse Ox 98.4 F 89 32 H 130/82 90 11/13/20 14:21 11/13/20 16:07 11/13/20 16:07 11/14/20 10:41 11/14/20 10:41 Temperature -Last 24 Hours Temperature 98.4 F Results - Labs CBC & Chem 7: 11/14/20 05:13 11/14/20 05:13 Labs: Abnormal lab results 11/13/20 11/13/20 11/13/20 Range/Units 16:07 16:07 16:07 WBC 4.4 L (4.5-11.0) K/mm3 RBC 5.37 H (3.65-5.03) M/mm3 Hgb 16.1 H (11.8-15.2) gm/dl MCHC 35 H (32-34) % Lymph % (Auto) (13.4-35.0) % [place] % (Auto) (0.0-7.3) % Lymph # (Auto) (1.2-5.4) K/mm3 Seg Neutrophils % (40.0-70.0) % Seg Neuts % (Manual) 89.0 H (40.0-70.0) % Lymphocytes % (Manual) 7.0 L (13.4-35.0) % Lymphocytes # (Manual) 0.3 L (1.2-5.4) K/mm3 D-Dimer (0-234) ng/mlDDU VBG pH (7.320-7.420) Sodium 123 L (137-145) mmol/L Potassium (3.6-5.0) mmol/L Chloride 93.8 L (98-107) mmol/L Carbon Dioxide 15 L (22-30) mmol/L BUN (9-20) mg/dL Creatinine 0.7 L (0.8-1.3) mg/dL Glucose 353 H (75-100) mg/dL POC Glucose (70-105) mg/dL Lactic Acid (0.7-2.0) mmol/L Calcium 7.9 L (8.4-10.2) mg/dL Ferritin (30.0-300.0) ng/mL AST 63 H (5-40) units/L Lactate Dehydrogenase (91-180) units/L Total Creatine Kinase (55-170) units/L C-Reactive Protein (0.00-1.30) mg/dL NT-Pro-B Natriuret Pep 1862 H (0-450) pg/mL Albumin 3.0 L (3.9-5) g/dL 11/13/20 11/13/20 11/13/20 Range/Units 19:43 19:43 19:43 WBC (4.5-11.0) K/mm3 RBC (3.65-5.03) M/mm3 Hgb (11.8-15.2) gm/dl MCHC (32-34) % Lymph % (Auto) (13.4-35.0) % [place] % (Auto) (0.0-7.3) % Lymph # (Auto) (1.2-5.4) K/mm3 Seg Neutrophils % (40.0-70.0) % Seg Neuts % (Manual) (40.0-70.0) % Lymphocytes % (Manual) (13.4-35.0) % Lymphocytes # (Manual) (1.2-5.4) K/mm3 D-Dimer 5272.39 H (0-234) ng/mlDDU VBG pH 7.427 H (7.320-7.420) Sodium (137-145) mmol/L Potassium (3.6-5.0) mmol/L Chloride (98-107) mmol/L Carbon Dioxide (22-30) mmol/L BUN (9-20) mg/dL Creatinine (0.8-1.3) mg/dL Glucose 373 H (75-100) mg/dL POC Glucose (70-105) mg/dL Lactic Acid (0.7-2.0) mmol/L Calcium (8.4-10.2) mg/dL Ferritin (30.0-300.0) ng/mL AST (5-40) units/L Lactate Dehydrogenase 1047 H (91-180) units/L Total Creatine Kinase 219 H (55-170) units/L C-Reactive Protein 7.70 H (0.00-1.30) mg/dL NT-Pro-B Natriuret Pep (0-450) pg/mL Albumin (3.9-5) g/dL 11/13/20 11/13/20 11/13/20 Range/Units 19:43 19:43 19:43 WBC (4.5-11.0) K/mm3 RBC (3.65-5.03) M/mm3 Hgb (11.8-15.2) gm/dl MCHC (32-34) % Lymph % (Auto) (13.4-35.0) % [place] % (Auto) (0.0-7.3) % Lymph # (Auto) (1.2-5.4) K/mm3 Seg Neutrophils % (40.0-70.0) % Seg Neuts % (Manual) (40.0-70.0) % Lymphocytes % (Manual) (13.4-35.0) % Lymphocytes # (Manual) (1.2-5.4) K/mm3 D-Dimer (0-234) ng/mlDDU VBG pH (7.320-7.420) Sodium 125 L (137-145) mmol/L Potassium (3.6-5.0) mmol/L Chloride 93.7 L (98-107) mmol/L Carbon Dioxide 16 L (22-30) mmol/L BUN (9-20) mg/dL Creatinine 0.6 L (0.8-1.3) mg/dL Glucose 369 H (75-100) mg/dL POC Glucose (70-105) mg/dL Lactic Acid 2.10 H* (0.7-2.0) mmol/L Calcium 8.3 L (8.4-10.2) mg/dL Ferritin 5737.0 H (30.0-300.0) ng/mL AST (5-40) units/L Lactate Dehydrogenase (91-180) units/L Total Creatine Kinase (55-170) units/L C-Reactive Protein (0.00-1.30) mg/dL NT-Pro-B Natriuret Pep (0-450) pg/mL Albumin (3.9-5) g/dL 11/13/20 11/13/20 11/13/20 Range/Units 20:04 20:50 22:49 WBC (4.5-11.0) K/mm3 RBC (3.65-5.03) M/mm3 Hgb (11.8-15.2) gm/dl MCHC (32-34) % Lymph % (Auto) (13.4-35.0) % [place] % (Auto) (0.0-7.3) % Lymph # (Auto) (1.2-5.4) K/mm3 Seg Neutrophils % (40.0-70.0) % Seg Neuts % (Manual) (40.0-70.0) % Lymphocytes % (Manual) (13.4-35.0) % Lymphocytes # (Manual) (1.2-5.4) K/mm3 D-Dimer (0-234) ng/mlDDU VBG pH (7.320-7.420) Sodium (137-145) mmol/L Potassium (3.6-5.0) mmol/L Chloride (98-107) mmol/L Carbon Dioxide (22-30) mmol/L BUN (9-20) mg/dL Creatinine (0.8-1.3) mg/dL Glucose (75-100) mg/dL POC Glucose 349 H 367 H (70-105) mg/dL Lactic Acid 2.10 H* (0.7-2.0) mmol/L Calcium (8.4-10.2) mg/dL Ferritin (30.0-300.0) ng/mL AST (5-40) units/L Lactate Dehydrogenase (91-180) units/L Total Creatine Kinase (55-170) units/L C-Reactive Protein (0.00-1.30) mg/dL NT-Pro-B Natriuret Pep (0-450) pg/mL Albumin (3.9-5) g/dL 11/14/20 11/14/20 11/14/20 Range/Units 05:13 05:13 05:13 WBC (4.5-11.0) K/mm3 RBC 5.27 H (3.65-5.03) M/mm3 Hgb 15.8 H (11.8-15.2) gm/dl MCHC 35 H (32-34) % Lymph % (Auto) 12.2 L (13.4-35.0) % [place] % (Auto) 13.0 H (0.0-7.3) % Lymph # (Auto) 0.7 L (1.2-5.4) K/mm3 Seg Neutrophils % 74.4 H (40.0-70.0) % Seg Neuts % (Manual) (40.0-70.0) % Lymphocytes % (Manual) (13.4-35.0) % Lymphocytes # (Manual) (1.2-5.4) K/mm3 D-Dimer (0-234) ng/mlDDU VBG pH (7.320-7.420) Sodium 127 L (137-145) mmol/L Potassium 5.3 H (3.6-5.0) mmol/L Chloride 94.5 L (98-107) mmol/L Carbon Dioxide 18 L (22-30) mmol/L BUN 22 H (9-20) mg/dL Creatinine (0.8-1.3) mg/dL Glucose 367 H (75-100) mg/dL POC Glucose (70-105) mg/dL Lactic Acid 2.40 H* (0.7-2.0) mmol/L Calcium 7.9 L (8.4-10.2) mg/dL Ferritin (30.0-300.0) ng/mL AST (5-40) units/L Lactate Dehydrogenase (91-180) units/L Total Creatine Kinase (55-170) units/L C-Reactive Protein (0.00-1.30) mg/dL NT-Pro-B Natriuret Pep (0-450) pg/mL Albumin (3.9-5) g/dL 11/14/20 Range/Units 11:50 WBC (4.5-11.0) K/mm3 RBC (3.65-5.03) M/mm3 Hgb (11.8-15.2) gm/dl MCHC (32-34) % Lymph % (Auto) (13.4-35.0) % [place] % (Auto) (0.0-7.3) % Lymph # (Auto) (1.2-5.4) K/mm3 Seg Neutrophils % (40.0-70.0) % Seg Neuts % (Manual) (40.0-70.0) % Lymphocytes % (Manual) (13.4-35.0) % Lymphocytes # (Manual) (1.2-5.4) K/mm3 D-Dimer (0-234) ng/mlDDU VBG pH (7.320-7.420) Sodium (137-145) mmol/L Potassium (3.6-5.0) mmol/L Chloride (98-107) mmol/L Carbon Dioxide (22-30) mmol/L BUN (9-20) mg/dL Creatinine (0.8-1.3) mg/dL Glucose (75-100) mg/dL POC Glucose 412 H (70-105) mg/dL Lactic Acid (0.7-2.0) mmol/L Calcium (8.4-10.2) mg/dL Ferritin (30.0-300.0) ng/mL AST (5-40) units/L Lactate Dehydrogenase (91-180) units/L Total Creatine Kinase (55-170) units/L C-Reactive Protein (0.00-1.30) mg/dL NT-Pro-B Natriuret Pep (0-450) pg/mL Albumin (3.9-5) g/dL - Imaging and Cardiology Chest x-ray: report reviewed, image reviewed Assessment and Plan Cultures: SARS CoV2 PCR: Pending 11/13/2020 blood culture: In process A/P: 35-year-old male with CAD, HTN, diabetes admitted to the hospital with cough, shortness of breath, fatigue, loss of taste and smell: #Bilateral pneumonia: high suspicion for COVID-19. DVT scan negative. #Acute hypoxic respiratory failure: on [place] oxygen. #CAD, cardiomyopathy #Diabetes mellitus, uncontrolled #Mild leucopenia Recs: IV/PO Dexamethasone 6 mg daily x 10 days, follow-up COVID-19 PCR High suspicion for COVID-19, will initiate remdesivir, discontinue if COVID-19 PCR is negative Continue empiric antibiotics for now pending procalcitonin prophylactic anticoagulation based on d-dimer per hospital protocol trend ferritin, LDH, d-dimer, CRP every 2-3 days for risk stratification and to assess disease progression Chino Larios MD, FACP [facility] ([facility] O: [phone] F: [phone]
[2020-11-14] MEDS ORDERED: REMDESIVIR 200 MG in SODIUM CHLORIDE 0.9% 250ML 250 ML IV ONE (15:30)
[2020-11-14 15:42] LABS: Alanine Aminotransferase 31 units/L (7-56); Albumin 3.1 g/dL (3.9-5); BUN/Creatinine Ratio 31; Blood Urea Nitrogen 25 mg/dL (9-20); Calcium 7.7 mg/dL (8.4-10.2); Hemolysis Index 155
[2020-11-14] MEDS: SODIUM CHLORIDE 0.9% 50 ML IVPB IV SCH (17:42)
[2020-11-14] MEDS: ENOXAPARIN 80 MG/0.8 ML INJ SUB-Q SCH (22:22)
[2020-11-15] MEDS: INSULIN LISPRO 100 UNIT/ML SUB-Q SCH ×6 (01:10→23:35)
[2020-11-15 06:33] LABS: Hematocrit 46.9 % (35.5-45.6); Hemoglobin 15.9 gm/dl (11.8-15.2); Mean Corpuscular HGB Conc 34 % (32-34); Mean Corpuscular Volume 86 fl (84-94); Platelet Count 230 K/mm3 (140-440); Red Blood Count 5.46 M/mm3 (3.65-5.03); Red Cell Distribution Width 13.5 % (13.2-15.2)
[2020-11-15 06:55] LABS: Hemolysis Index 211
[2020-11-15 07:02] LABS: Alanine Aminotransferase TNR units/L (7-56); BUN/Creatinine Ratio TNR; Blood Urea Nitrogen TNR mg/dL (9-20); Calcium TNR mg/dL (8.4-10.2)
[2020-11-15 07:03] LABS: Albumin TNR g/dL (3.9-5)
[2020-11-15 09:31] LABS: Alanine Aminotransferase 38 units/L (7-56); Albumin 2.8 g/dL (3.9-5); Blood Urea Nitrogen 26 mg/dL (9-20); Calcium 8.5 mg/dL (8.4-10.2); Hemolysis Index 44
[2020-11-15 09:33] LABS: BUN/Creatinine Ratio 52
[2020-11-15] MEDS: INSULIN GLARGINE 100 UNITS/ML SUB-Q SCH ×2 (12:07→23:20)
[2020-11-15] MEDS: CLOPIDOGREL 75 MG TAB PO SCH (12:07)
[2020-11-15] MEDS: dexAMETHasone 4 MG/ML VIAL IV SCH (12:07)
[2020-11-15] MEDS: FAMOTIDINE 20 MG TAB PO SCH ×3 (12:08→23:21)
[2020-11-15] MEDS: LISINOPRIL 5 MG TAB PO SCH (12:08)
[2020-11-15] MEDS: ASPIRIN 81 MG TAB CHEW PO SCH (12:08)
[2020-11-15] MEDS: ENOXAPARIN 80 MG/0.8 ML INJ SUB-Q SCH ×2 (12:10→23:19)
[2020-11-15] MEDS: SPIRONOLACTONE 25 MG TAB PO SCH (12:12)
[2020-11-15] MEDS: AZITHROMYCIN/NS 500 MG/250 ML 500 MG/250 ML BAG IV SCH (12:12)
[2020-11-15] MEDS: cefTRIAXone/NS 2 GM/100 ML 2 GM/100 ML BAG IV SCH (12:45)
--- NOTE | 2020-11-15 12:50 | Progress Note ---
Assessment and Plan Assessment and plan: 35 years old male with past medical history of ischemic heart disease, CHF with EF of 30 to 35%, non-ST elevation [place] status post stent diabetes hypertension was brought to the hospital because of 3 days of cough, congestion, shortness of breath, malaise, fatigue, weakness, loss of taste and smell. He states he does not believe he has any chronic medical conditions. He states he does not take medications that he is aware of. His symptoms are constant for the past 3 days. They are getting worse. They worsen with physical exertion. They decreased with rest. Positive increase in urinary frequency, positive increase in thirst. Patient complained of generalized body aches. Positive loss of taste and smell. In the emergency room patient is found to have blood glucose of 369 lactic acid of 2.10 bicarb of 16, sodium 125. Chest x-ray shows diffuse bilateral airspace disease. This appearance may reflect infection in the appropriate clinical settings. We are admitting the patient because of hypoxia secondary to Covid pneumonia and hyperglycemia. Med rec is done and advance discharge planning is initiated - Patient Problems (1) Acute respiratory failure with hypoxia Current Visit: Yes Status: Acute Plan to address problem: Admit the patient to the medical telemetry. Oxygen via nasal cannula 3 to per minute. DuoNeb by nebulizer every 4 hours. Rocephin 2 g IV daily and Zithromax 500 mg IV daily. Dexamethasone 6 mg IV daily. We do the blood cultures sputum culture. Follow the Covid PCR and Covid inflammatory marker. Reconsult pulmonary as well as infectious disease evaluation (2) COVID-19 virus infection Current Visit: Yes Status: Acute Plan to address problem: Oxygen via nasal cannula 3 to per minute. DuoNeb by nebulizer every 4 hours. Rocephin 2 g IV daily and Zithromax 500 mg IV daily. Dexamethasone 6 mg IV daily. We do the blood cultures sputum culture. Follow the Covid PCR and Covid inflammatory marker. Reconsult pulmonary as well as infectious disease evaluation (3) Hyperglycemia Current Visit: Yes Status: Acute Plan to address problem: We will put the patient on diabetic diet. Insulin sliding scale with Humalog coverage every 6 hours high dose coverage. Lantus 15 mg subcu every 12 hours. Will consult diabetic education. Recheck CBC BMP in the morning (4) Metabolic acidosis Current Visit: Yes Status: Acute Plan to address problem: We will put the patient on low-dose IV fluid half-normal saline at the rate of 75 cc/h. Rocephin 2 g IV daily and Zithromax 500 mg IV daily. We also put the patient on Humalog sliding scale and Lantus 15 units subcu every 12 hours. Recheck CBC BMP in the morning (5) Ischemic cardiomyopathy Current Visit: Yes Status: Chronic Plan to address problem: Stable. We will monitor the patient closely. We continue the home medication. Aspirin 81 mg, Plavix 75 mg. Lipitor 20 mg. Lisinopril 2.5 mg p.o. daily. We order echocardiogram. Consult cardiology if needed (6) HTN (hypertension) Current Visit: No Status: Chronic Qualifiers: Hypertension type: essential hypertension Plan to address problem: Lisinopril 2.5 mg p.o. daily. Hydralazine 10 mg IV every 6 hours as needed. Metoprolol 25 mg p.o. daily. (7) History of tobacco use Current Visit: No Status: Chronic Plan to address problem: We counseled regarding quitting smoking. (8) DVT prophylaxis Current Visit: Yes Status: Acute Plan to address problem: Heparin 5000 units subcu every 8 hours for DVT prophylaxis. Pepcid 20 mg p.o. twice daily for GI prophylaxis. Patient is a full code. 11/14: Continue current management. Will adjust insulin for better coverage. Patient noted to have increasing gallop placed on full dose anticoagulation. We will continue to monitor sodium for hyponatremia. This could be related to the hypoglycemia and anticipate that it will correct with correction of blood glucose. Continue antibiotics. Will obtain pulmonary consultation to assist with management of this severely ill patient. Prognosis guarded encourage prone positioning while we await Covid testing. 11/15: Continue steroids and remdesivir as initiated by infectious disease. Pulmonary consulted. Continue to encourage prone positioning. Covid test did come back positive this has been discussed with patient. Hyperkalemia we will give a dose of Kayexalate while monitoring blood pressure which remains low at this time. Will decrease blood pressure medications. Continue to monitor renal function and other vital inflammatory markers. History Interval history: Patient seen and examined today remains with shortness of breath. Continues on 6 L of oxygen due to his profound hypoxia Hospitalist Physical - Physical exam Narrative exam: General appearance: Present: Mild respiratory distress, well-nourished - EENT Eyes: Present: PERRL ENT: hearing intact, clear oral mucosa - Neck Neck: Present: supple, normal ROM - Respiratory Respiratory effort: normal Respiratory: bilateral: diminished - Cardiovascular Heart Sounds: Present: S1 & S2. Absent: rub, click - Extremities Extremities: pulses symmetrical, No edema Peripheral Pulses: within normal limits - Abdominal General gastrointestinal: Present: soft, non-tender, non-distended, normal bowel sounds Male genitourinary: Present: normal - Integumentary Integumentary: Present: clear, warm, dry - Musculoskeletal Musculoskeletal: gait normal, strength equal bilaterally - Psychiatric Psychiatric: appropriate mood/affect, intact judgment & insight - Neurologic Neurologic: CNII-XII intact, moves all extremities - Constitutional Vitals: Temp Pulse Resp BP Pulse Ox 98.4 F 78 37 H 97/67 79 L 11/13/20 14:21 11/15/20 05:46 11/15/20 05:46 11/15/20 05:46 11/15/20 05:46 General appearance: Present: no acute distress, well-nourished HEART Score - HEART Score Troponin: Troponin T < 0.010 ng/mL (0.00-0.029) 11/13/20 16:07 Results - Labs CBC & Chem 7: 11/15/20 05:42 11/15/20 07:58 Labs: Laboratory Last Values WBC 14.7 K/mm3 (4.5-11.0) H 11/15/20 05:42 RBC 5.46 M/mm3 (3.65-5.03) H 11/15/20 05:42 Hgb 15.9 gm/dl (11.8-15.2) H 11/15/20 05:42 Hct 46.9 % (35.5-45.6) H 11/15/20 05:42 MCV 86 fl (84-94) 11/15/20 05:42 MCH 29 pg (28-32) 11/15/20 05:42 MCHC 34 % (32-34) 11/15/20 05:42 RDW 13.5 % (13.2-15.2) 11/15/20 05:42 Plt Count 230 K/mm3 (140-440) 11/15/20 05:42 Lymph % (Auto) 12.2 % (13.4-35.0) L 11/14/20 05:13 Yates % (Auto) 13.0 % (0.0-7.3) H 11/14/20 05:13 Eos % (Auto) 0.0 % (0.0-4.3) 11/14/20 05:13 Baso % (Auto) 0.4 % (0.0-1.8) 11/14/20 05:13 Lymph # (Auto) 0.7 K/mm3 (1.2-5.4) L 11/14/20 05:13 Yates # (Auto) 0.7 K/mm3 (0.0-0.8) 11/14/20 05:13 Eos # (Auto) 0.0 K/mm3 (0.0-0.4) 11/14/20 05:13 Baso # (Auto) 0.0 K/mm3 (0.0-0.1) 11/14/20 05:13 Add Manual Diff Complete 11/13/20 16:07 Total Counted 100 11/13/20 16:07 Seg Neutrophils % 74.4 % (40.0-70.0) H 11/14/20 05:13 Seg Neuts % (Manual) 89.0 % (40.0-70.0) H 11/13/20 16:07 Lymphocytes % (Manual) 7.0 % (13.4-35.0) L 11/13/20 16:07 Monocytes % (Manual) 4.0 % (0.0-7.3) 11/13/20 16:07 Nucleated RBC % Not Reportable 11/13/20 16:07 Seg Neutrophils # 4.2 K/mm3 (1.8-7.7) 11/14/20 05:13 Seg Neutrophils # Man 3.9 K/mm3 (1.8-7.7) 11/13/20 16:07 Band Neutrophils # 0.0 K/mm3 11/13/20 16:07 Lymphocytes # (Manual) 0.3 K/mm3 (1.2-5.4) L 11/13/20 16:07 Abs React Lymphs (Man) 0.0 K/mm3 11/13/20 16:07 Monocytes # (Manual) 0.2 K/mm3 (0.0-0.8) 11/13/20 16:07 Eosinophils # (Manual) 0.0 K/mm3 (0.0-0.4) 11/13/20 16:07 Basophils # (Manual) 0.0 K/mm3 (0.0-0.1) 11/13/20 16:07 Metamyelocytes # 0.0 K/mm3 11/13/20 16:07 Myelocytes # 0.0 K/mm3 11/13/20 16:07 Promyelocytes # 0.0 K/mm3 11/13/20 16:07 Blast Cells # 0.0 K/mm3 11/13/20 16:07 WBC Morphology Not Reportable 11/13/20 16:07 Hypersegmented Neuts Not Reportable 11/13/20 16:07 Hyposegmented Neuts Not Reportable 11/13/20 16:07 Hypogranular Neuts Not Reportable 11/13/20 16:07 Smudge Cells Not Reportable 11/13/20 16:07 Toxic Granulation Not Reportable 11/13/20 16:07 Toxic Vacuolation Not Reportable 11/13/20 16:07 Dohle Bodies Not Reportable 11/13/20 16:07 Pelger-Huet Anomaly Not Reportable 11/13/20 16:07 Sarmad Rods Not Reportable 11/13/20 16:07 Platelet Estimate Not Reportable 11/13/20 16:07 Clumped Platelets Not Reportable 11/13/20 16:07 Plt Clumps, EDTA Not Reportable 11/13/20 16:07 Large Platelets Not Reportable 11/13/20 16:07 Giant Platelets Not Reportable 11/13/20 16:07 Platelet Satelliting Not Reportable 11/13/20 16:07 Plt Morphology Comment Not Reportable 11/13/20 16:07 RBC Morphology Normal 11/13/20 16:07 Dimorphic RBCs Not Reportable 11/13/20 16:07 Polychromasia Not Reportable 11/13/20 16:07 Hypochromasia Not Reportable 11/13/20 16:07 Poikilocytosis Not Reportable 11/13/20 16:07 Anisocytosis Not Reportable 11/13/20 16:07 Microcytosis Not Reportable 11/13/20 16:07 Macrocytosis Not Reportable 11/13/20 16:07 Spherocytes Not Reportable 11/13/20 16:07 Pappenheimer Bodies Not Reportable 11/13/20 16:07 Sickle Cells Not Reportable 11/13/20 16:07 Target Cells Not Reportable 11/13/20 16:07 Tear Drop Cells Not Reportable 11/13/20 16:07 Ovalocytes Not Reportable 11/13/20 16:07 Helmet Cells Not Reportable 11/13/20 16:07 [place] Bodies Not Reportable 11/13/20 16:07 [place] Rings Not Reportable 11/13/20 16:07 [place] Cells Not Reportable 11/13/20 16:07 Bite Cells Not Reportable 11/13/20 16:07 Crenated Cell Not Reportable 11/13/20 16:07 Elliptocytes Not Reportable 11/13/20 16:07 Acanthocytes (Spur) Not Reportable 11/13/20 16:07 Rouleaux Not Reportable 11/13/20 16:07 Hemoglobin C Crystals Not Reportable 11/13/20 16:07 Schistocytes Not Reportable 11/13/20 16:07 Malaria parasites Not Reportable 11/13/20 16:07 Martin Bodies Not Reportable 11/13/20 16:07 Hem Pathologist Commnt No 11/13/20 16:07 D-Dimer 5272.39 ng/mlDDU (0-234) H 11/13/20 19:43 VBG pH 7.427 (7.320-7.420) H 11/13/20 19:43 Sodium 129 mmol/L (137-145) L 11/15/20 07:58 Potassium 5.2 mmol/L (3.6-5.0) H 11/15/20 07:58 Chloride 101.7 mmol/L (98-107) 11/15/20 07:58 Carbon Dioxide 16 mmol/L (22-30) L 11/15/20 07:58 Anion Gap 17 mmol/L 11/15/20 07:58 BUN 26 mg/dL (9-20) H 11/15/20 07:58 Creatinine 0.5 mg/dL (0.8-1.3) L 11/15/20 07:58 Estimated GFR > 60 ml/min 11/15/20 07:58 BUN/Creatinine Ratio 52 % 11/15/20 07:58 Glucose 228 mg/dL (75-100) H 11/15/20 07:58 POC Glucose 195 mg/dL (70-105) H 11/15/20 12:05 Ketones Quantitative Small (Negative) 11/13/20 19:43 Lactic Acid 3.00 mmol/L (0.7-2.0) H* 11/14/20 14:26 Calcium 8.5 mg/dL (8.4-10.2) 11/15/20 07:58 Magnesium 2.10 mg/dL (1.7-2.3) 11/13/20 19:43 Ferritin 5737.0 ng/mL (30.0-300.0) H 11/13/20 19:43 Total Bilirubin 0.40 mg/dL (0.1-1.2) 11/15/20 07:58 AST 59 units/L (5-40) H 11/15/20 07:58 ALT 38 units/L (7-56) 11/15/20 07:58 Alkaline Phosphatase 135 units/L (35-129) H 11/15/20 07:58 Lactate Dehydrogenase 1047 units/L (91-180) H 11/13/20 19:43 Total Creatine Kinase 219 units/L (55-170) H 11/13/20 19:43 Troponin T < 0.010 ng/mL (0.00-0.029) 11/13/20 16:07 C-Reactive Protein 7.70 mg/dL (0.00-1.30) H 11/13/20 19:43 NT-Pro-B Natriuret Pep 1862 pg/mL (0-450) H 11/13/20 16:07 Total Protein 6.4 g/dL (6.3-8.2) 11/15/20 07:58 Albumin 2.8 g/dL (3.9-5) L 11/15/20 07:58 Albumin/Globulin Ratio 0.8 % 11/15/20 07:58 Coronavirus (PCR) Positive (Negative) A 11/14/20 08:25 Microbiology: Microbiology 11/13/20 19:43 Peripheral/Venous Blood Culture - Preliminary NO GROWTH AFTER 24 HOURS 11/13/20 19:43 Peripheral/Venous Blood Culture - Preliminary NO GROWTH AFTER 24 HOURS Active Medications - Current Medications Current Medications: Generic Name Dose Route Start Last Admin Trade Name Freq PRN Reason Stop Dose Admin Acetaminophen 650 mg 11/13/20 21:53 Acetaminophen 325 Mg Tab PO Q4H PRN Pain MILD(1-3)/Fever >100.5/BRAR Albuterol 2.5 mg 11/13/20 21:53 Albuterol 2.5 Mg/3 Ml Nebu IH Q4HRT PRN Shortness Of Breath Aspirin 81 mg 11/14/20 10:00 11/15/20 12:08 Aspirin 81 Mg Tab Chew PO 81 mg QDAY MARY Administration Atorvastatin Calcium 20 mg 11/13/20 22:00 11/14/20 22:21 Atorvastatin 20 Mg Tab PO 20 mg QHS MARY Administration Clopidogrel Bisulfate 75 mg 11/14/20 10:00 11/15/20 12:07 Clopidogrel 75 Mg Tab PO 75 mg QDAY MARY Administration Dexamethasone 6 mg 11/14/20 10:00 11/15/20 12:07 Dexamethasone 4 Mg/Ml Vial IV 11/22/20 10:01 6 mg DAILY MARY Administration Dextrose 0 ml 11/13/20 21:53 Dextrose 50% In Water (25gm) 50 Ml Syringe IV Q30MIN PRN Hypoglycemia Protocol Enoxaparin Sodium 80 mg 11/14/20 22:00 11/15/20 12:10 Enoxaparin 80 Mg/0.8 Ml Inj SUB-Q 80 mg Q12HR MARY Administration Protocol Famotidine 20 mg 11/13/20 22:00 11/15/20 12:11 Famotidine 20 Mg Tab PO 20 mg BID MARY Administration Hydralazine HCl 10 mg 11/13/20 22:14 Hydralazine 20 Mg/1 Ml Inj IV Q6H PRN Blood Pressure Hydromorphone HCl 0.5 mg 11/13/20 21:53 Hydromorphone 1 Mg/1 Ml Inj IV Q3H PRN Pain , Severe (7-10) Ceftriaxone Sodium 2 gm in 100 mls @ 200 mls/hr 11/14/20 10:00 11/14/20 10:43 Rocephin/Ns 2 Gm/100 Ml IV 11/17/20 10:29 200 mls/hr Q24HR MARY Administration Protocol Azithromycin 500 mg in 250 mls @ 250 mls/hr 11/14/20 10:00 11/15/20 12:12 Zithromax/Ns IV 11/17/20 10:59 250 mls/hr Q24HR MARY Administration Protocol Sodium Chloride 1,000 mls @ 75 mls/hr 11/13/20 23:00 Nacl 0.45% 1000 Ml IV DIRECT MARY REMDESIVIR 100 mg/ Sodium 250 mls @ 500 mls/hr 11/15/20 21:00 Chloride IV 11/18/20 21:29 Q24HR@2100 [facility] Insulin Glargine 20 units 11/14/20 10:30 11/15/20 12:07 Insulin Glargine 100 Units/Ml SUB-Q 20 units BID MARY Administration Insulin Human Lispro 0 unit 11/14/20 00:00 11/15/20 12:21 Insulin Lispro 100 Unit/Ml SUB-Q 4 unit Q6HR [facility] Administration Protocol Lisinopril 2.5 mg 11/14/20 10:00 11/15/20 12:08 Lisinopril 5 Mg Tab PO 2.5 mg QDAY [facility] Administration Metoprolol Succinate 25 mg 11/14/20 10:00 11/14/20 12:05 Metoprolol Succinate Xl 25 Mg Tab PO 25 mg QDAY [facility] Administration Ondansetron HCl 4 mg 11/13/20 21:53 Ondansetron 4 Mg/2 Ml Inj IV Q8H PRN Nausea And Vomiting Oxycodone/Acetaminophen 1 tab 11/13/20 21:53 Oxycodone /Acetaminophen 5-325mg Tab PO Q6H PRN Pain, Moderate (4-6) Sodium Chloride 10 ml 11/13/20 22:00 11/15/20 12:11 Sodium Chloride 0.9% 10 Ml Flush Syringe IV 10 ml BID MARY Administration Sodium Chloride 10 ml 11/13/20 21:53 Sodium Chloride 0.9% 10 Ml Flush Syringe IV PRN PRN LINE FLUSH Sodium Chloride 50 ml 11/14/20 16:00 11/14/20 17:42 Sodium Chloride 0.9% 50 Ml Ivpb IV 11/18/20 21:01 50 ml Q24HR@2100 [facility] Administration Spironolactone 25 mg 11/15/20 10:00 11/15/20 12:12 Spironolactone 25 Mg Tab PO Not Given QDAY [facility] Nutrition/Malnutrition Assess - Dietary Evaluation Nutrition/Malnutrition Findings: Nutrition Notes Start: 11/14/20 14:18 Freq: Status: Active Protocol: Document 11/14/20 14:18 MK (Rec: 11/14/20 14:19 YULY [id number]) Nutrition Notes Need for Assessment generated from: MD Order,Education Initial or Follow up Brief Note Current Diagnosis Coronary Artery Disease, Diabetes,Hypertension,Heart Failure Other Pertinent Diagnosis pneu, COVID PUI Current Diet Cardiac, Consistent CHO Labs/Tests POC BG 412 Subjective/Other Information MD consult for DM edu. Pt on hold in ED. Nutrition Intervention Follow-Up By: 11/16/20 Additional Comments F/u: placement and diet education
[2020-11-15] MEDS ORDERED: SODIUM POLYSTYRENE 15 GM/60 ML ORAL LIQD PO NR (12:51)
--- NOTE | 2020-11-15 13:30 | Progress Note ---
Assessment and Plan Cultures: SARS CoV2 PCR: positive 11/13/2020 blood culture: In process A/P: 35-year-old male with CAD, HTN, diabetes admitted to the hospital with cough, shortness of breath, fatigue, loss of taste and smell: #Bilateral pneumonia: due to COVID-19. DVT scan negative. #Acute hypoxic respiratory failure: on [place] oxygen. #CAD, cardiomyopathy #Diabetes mellitus, uncontrolled #Mild leucopenia Recs: IV/PO Dexamethasone x 10 days continue remdesivir if hypoxia worsens to HFNC >30 lit/min, administer Actemra if available Continue empiric antibiotics for now pending procalcitonin prophylactic anticoagulation based on d-dimer per hospital protocol trend ferritin, LDH, d-dimer, CRP every 2-3 days for risk stratification and to assess disease progression Chino Larios MD, FACP [facility] ([facility] O: [phone] F: [phone] Subjective Date of service: 11/15/20 Interval history: No fever. Remains tachypneic, hypoxic. COVID-19 came back positive Objective - Exam Narrative Exam: Physical Exam (reviewed in chart to minimize risk of transmission) Constitutional: deferred Head, Ears, Nose: deferred Eyes: deferred Neck: deferred Oral: deferred Cardiovascular: deferred Respiratory: deferred GI: deferred Musculoskeletal: deferred Skin: deferred Hem/Lymphatic: deferred Psych: deferred Neurological: deferred - Constitutional Vitals: Vital Signs Temp Pulse Resp BP Pulse Ox 98.4 F 78 37 H 97/67 79 L 11/13/20 14:21 11/15/20 05:46 11/15/20 05:46 11/15/20 05:46 11/15/20 05:46 - Labs CBC & Chem 7: 11/15/20 05:42 11/15/20 07:58 Labs: Abnormal lab results 11/14/20 11/14/20 11/14/20 Range/Units 08:25 11:43 14:26 WBC (4.5-11.0) K/mm3 RBC (3.65-5.03) M/mm3 Hgb (11.8-15.2) gm/dl Hct (35.5-45.6) % Sodium 130 L (137-145) mmol/L Potassium 5.5 H (3.6-5.0) mmol/L Chloride 97.2 L (98-107) mmol/L Carbon Dioxide 19 L (22-30) mmol/L BUN 25 H (9-20) mg/dL Creatinine (0.8-1.3) mg/dL Glucose 379 H (75-100) mg/dL POC Glucose (70-105) mg/dL Lactic Acid 2.70 H* (0.7-2.0) mmol/L Calcium 7.7 L (8.4-10.2) mg/dL AST 57 H (5-40) units/L Alkaline Phosphatase (35-129) units/L Albumin 3.1 L (3.9-5) g/dL Coronavirus (PCR) Positive A (Negative) 11/14/20 11/14/20 11/15/20 Range/Units 14:26 17:59 00:43 WBC (4.5-11.0) K/mm3 RBC (3.65-5.03) M/mm3 Hgb (11.8-15.2) gm/dl Hct (35.5-45.6) % Sodium (137-145) mmol/L Potassium (3.6-5.0) mmol/L Chloride (98-107) mmol/L Carbon Dioxide (22-30) mmol/L BUN (9-20) mg/dL Creatinine (0.8-1.3) mg/dL Glucose (75-100) mg/dL POC Glucose 314 H 311 H (70-105) mg/dL Lactic Acid 3.00 H* (0.7-2.0) mmol/L Calcium (8.4-10.2) mg/dL AST (5-40) units/L Alkaline Phosphatase (35-129) units/L Albumin (3.9-5) g/dL Coronavirus (PCR) (Negative) 11/15/20 11/15/20 11/15/20 Range/Units 05:08 05:42 07:58 WBC 14.7 H (4.5-11.0) K/mm3 RBC 5.46 H (3.65-5.03) M/mm3 Hgb 15.9 H (11.8-15.2) gm/dl Hct 46.9 H (35.5-45.6) % Sodium 129 L (137-145) mmol/L Potassium 5.2 H (3.6-5.0) mmol/L Chloride (98-107) mmol/L Carbon Dioxide 16 L (22-30) mmol/L BUN 26 H (9-20) mg/dL Creatinine 0.5 L (0.8-1.3) mg/dL Glucose 228 H (75-100) mg/dL POC Glucose 245 H (70-105) mg/dL Lactic Acid (0.7-2.0) mmol/L Calcium (8.4-10.2) mg/dL AST 59 H (5-40) units/L Alkaline Phosphatase 135 H (35-129) units/L Albumin 2.8 L (3.9-5) g/dL Coronavirus (PCR) (Negative) 11/15/20 Range/Units 12:05 WBC (4.5-11.0) K/mm3 RBC (3.65-5.03) M/mm3 Hgb (11.8-15.2) gm/dl Hct (35.5-45.6) % Sodium (137-145) mmol/L Potassium (3.6-5.0) mmol/L Chloride (98-107) mmol/L Carbon Dioxide (22-30) mmol/L BUN (9-20) mg/dL Creatinine (0.8-1.3) mg/dL Glucose (75-100) mg/dL POC Glucose 195 H (70-105) mg/dL Lactic Acid (0.7-2.0) mmol/L Calcium (8.4-10.2) mg/dL AST (5-40) units/L Alkaline Phosphatase (35-129) units/L Albumin (3.9-5) g/dL Coronavirus (PCR) (Negative)
[2020-11-15] MEDS: METOPROLOL SUCCINATE XL 25 MG TAB PO SCH (18:42)
[2020-11-15] MEDS: REMDESIVIR 100 MG in SODIUM CHLORIDE 0.9% 250ML 250 ML IV SCH (23:20)
[2020-11-15] MEDS: SODIUM CHLORIDE 0.9% 50 ML IVPB IV SCH (23:20)
[2020-11-16] MEDS: INSULIN LISPRO 100 UNIT/ML SUB-Q SCH ×5 (00:35→23:35)
--- NOTE | 2020-11-16 07:11 | Progress Note ---
Assessment and Plan Assessment and plan: 35 years old male with past medical history of ischemic heart disease, CHF with EF of 30 to 35%, non-ST elevation [place] status post stent diabetes hypertension was brought to the hospital because of 3 days of cough, congestion, shortness of breath, malaise, fatigue, weakness, loss of taste and smell. He states he does not believe he has any chronic medical conditions. He states he does not take medications that he is aware of. His symptoms are constant for the past 3 days. They are getting worse. They worsen with physical exertion. They decreased with rest. Positive increase in urinary frequency, positive increase in thirst. Patient complained of generalized body aches. Positive loss of taste and smell. In the emergency room patient is found to have blood glucose of 369 lactic acid of 2.10 bicarb of 16, sodium 125. Chest x-ray shows diffuse bilateral airspace disease. This appearance may reflect infection in the appropriate clinical settings. We are admitting the patient because of hypoxia secondary to Covid pneumonia and hyperglycemia. Med rec is done and advance discharge planning is initiated - Patient Problems (1) Acute respiratory failure with hypoxia Current Visit: Yes Status: Acute Plan to address problem: Admit the patient to the medical telemetry. Oxygen via nasal cannula 3 to per minute. DuoNeb by nebulizer every 4 hours. Rocephin 2 g IV daily and Zithromax 500 mg IV daily. Dexamethasone 6 mg IV daily. We do the blood cultures sputum culture. Follow the Covid PCR and Covid inflammatory marker. Reconsult pulmonary as well as infectious disease evaluation (2) COVID-19 virus infection Current Visit: Yes Status: Acute Plan to address problem: Oxygen via nasal cannula 3 to per minute. DuoNeb by nebulizer every 4 hours. Rocephin 2 g IV daily and Zithromax 500 mg IV daily. Dexamethasone 6 mg IV daily. We do the blood cultures sputum culture. Follow the Covid PCR and Covid inflammatory marker. Reconsult pulmonary as well as infectious disease evaluation (3) Hyperglycemia Current Visit: Yes Status: Acute Plan to address problem: We will put the patient on diabetic diet. Insulin sliding scale with Humalog coverage every 6 hours high dose coverage. Lantus 15 mg subcu every 12 hours. Will consult diabetic education. Recheck CBC BMP in the morning (4) Metabolic acidosis Current Visit: Yes Status: Acute Plan to address problem: We will put the patient on low-dose IV fluid half-normal saline at the rate of 75 cc/h. Rocephin 2 g IV daily and Zithromax 500 mg IV daily. We also put the patient on Humalog sliding scale and Lantus 15 units subcu every 12 hours. Recheck CBC BMP in the morning (5) Ischemic cardiomyopathy Current Visit: Yes Status: Chronic Plan to address problem: Stable. We will monitor the patient closely. We continue the home medication. Aspirin 81 mg, Plavix 75 mg. Lipitor 20 mg. Lisinopril 2.5 mg p.o. daily. We order echocardiogram. Consult cardiology if needed (6) HTN (hypertension) Current Visit: No Status: Chronic Qualifiers: Hypertension type: essential hypertension Plan to address problem: Lisinopril 2.5 mg p.o. daily. Hydralazine 10 mg IV every 6 hours as needed. Metoprolol 25 mg p.o. daily. (7) History of tobacco use Current Visit: No Status: Chronic Plan to address problem: We counseled regarding quitting smoking. (8) DVT prophylaxis Current Visit: Yes Status: Acute Plan to address problem: Heparin 5000 units subcu every 8 hours for DVT prophylaxis. Pepcid 20 mg p.o. twice daily for GI prophylaxis. Patient is a full code. 11/14: Continue current management. Will adjust insulin for better coverage. Patient noted to have increasing gallop placed on full dose anticoagulation. We will continue to monitor sodium for hyponatremia. This could be related to the hypoglycemia and anticipate that it will correct with correction of blood glucose. Continue antibiotics. Will obtain pulmonary consultation to assist with management of this severely ill patient. Prognosis guarded encourage prone positioning while we await Covid testing. 11/15: Continue steroids and remdesivir as initiated by infectious disease. Pulmonary consulted. Continue to encourage prone positioning. Covid test did come back positive this has been discussed with patient. Hyperkalemia we will give a dose of Kayexalate while monitoring blood pressure which remains low at this time. Will decrease blood pressure medications. Continue to monitor renal function and other vital inflammatory markers. 11/16; continue Decadron and remdesivir per ID recommendation. Pulmonary consulted and pending recommendations. Hyperkalemia resolved. Blood pressure within normal limit. Patient was on 10 L of high flow oxygen and titrate oxygen as tolerated. History Interval history: Patient was seen and evaluated this morning Patient was on 10 L of high flow oxygen Hospitalist Physical - Physical exam Narrative exam: Patient was on 10 L of high flow oxygen.. The patient appeared well nourished and normally developed. Vital signs as documented. Head exam is unremarkable. No scleral icterus . Neck is without jugular venous distension, thyromegaly, or carotid bruits. Lungs decreased breath sounds bilaterally. Cardiac exam reveals regular rate and Rhythm. Abdominal exam reveals normal bowel sounds, nontender, no organomegaly. Extremities are nonedematous and both femoral and pedal pulses are normal. WHEAT CLEANER: Alert and oriented 3. No focal weakness. - Constitutional Vitals: Temp Pulse Resp BP Pulse Ox 98.4 F 90 16 129/77 100 11/15/20 21:41 11/16/20 05:20 11/16/20 05:20 11/16/20 05:20 11/16/20 05:20 General appearance: Present: no acute distress, well-nourished HEART Score - HEART Score Troponin: Troponin T < 0.010 ng/mL (0.00-0.029) 11/13/20 16:07 Results - Labs CBC & Chem 7: 11/16/20 06:53 11/16/20 06:53 Labs: Laboratory Last Values WBC 14.7 K/mm3 (4.5-11.0) H 11/15/20 05:42 RBC 5.46 M/mm3 (3.65-5.03) H 11/15/20 05:42 Hgb 15.9 gm/dl (11.8-15.2) H 11/15/20 05:42 Hct 46.9 % (35.5-45.6) H 11/15/20 05:42 MCV 86 fl (84-94) 11/15/20 05:42 MCH 29 pg (28-32) 11/15/20 05:42 MCHC 34 % (32-34) 11/15/20 05:42 RDW 13.5 % (13.2-15.2) 11/15/20 05:42 Plt Count 230 K/mm3 (140-440) 11/15/20 05:42 Lymph % (Auto) 12.2 % (13.4-35.0) L 11/14/20 05:13 Dickey % (Auto) 13.0 % (0.0-7.3) H 11/14/20 05:13 Eos % (Auto) 0.0 % (0.0-4.3) 11/14/20 05:13 Baso % (Auto) 0.4 % (0.0-1.8) 11/14/20 05:13 Lymph # (Auto) 0.7 K/mm3 (1.2-5.4) L 11/14/20 05:13 Dickey # (Auto) 0.7 K/mm3 (0.0-0.8) 11/14/20 05:13 Eos # (Auto) 0.0 K/mm3 (0.0-0.4) 11/14/20 05:13 Baso # (Auto) 0.0 K/mm3 (0.0-0.1) 11/14/20 05:13 Add Manual Diff Complete 11/13/20 16:07 Total Counted 100 11/13/20 16:07 Seg Neutrophils % 74.4 % (40.0-70.0) H 11/14/20 05:13 Seg Neuts % (Manual) 89.0 % (40.0-70.0) H 11/13/20 16:07 Lymphocytes % (Manual) 7.0 % (13.4-35.0) L 11/13/20 16:07 Monocytes % (Manual) 4.0 % (0.0-7.3) 11/13/20 16:07 Nucleated RBC % Not Reportable 11/13/20 16:07 Seg Neutrophils # 4.2 K/mm3 (1.8-7.7) 11/14/20 05:13 Seg Neutrophils # Man 3.9 K/mm3 (1.8-7.7) 11/13/20 16:07 Band Neutrophils # 0.0 K/mm3 11/13/20 16:07 Lymphocytes # (Manual) 0.3 K/mm3 (1.2-5.4) L 11/13/20 16:07 Abs React Lymphs (Man) 0.0 K/mm3 11/13/20 16:07 Monocytes # (Manual) 0.2 K/mm3 (0.0-0.8) 11/13/20 16:07 Eosinophils # (Manual) 0.0 K/mm3 (0.0-0.4) 11/13/20 16:07 Basophils # (Manual) 0.0 K/mm3 (0.0-0.1) 11/13/20 16:07 Metamyelocytes # 0.0 K/mm3 11/13/20 16:07 Myelocytes # 0.0 K/mm3 11/13/20 16:07 Promyelocytes # 0.0 K/mm3 11/13/20 16:07 Blast Cells # 0.0 K/mm3 11/13/20 16:07 WBC Morphology Not Reportable 11/13/20 16:07 Hypersegmented Neuts Not Reportable 11/13/20 16:07 Hyposegmented Neuts Not Reportable 11/13/20 16:07 Hypogranular Neuts Not Reportable 11/13/20 16:07 Smudge Cells Not Reportable 11/13/20 16:07 Toxic Granulation Not Reportable 11/13/20 16:07 Toxic Vacuolation Not Reportable 11/13/20 16:07 Dohle Bodies Not Reportable 11/13/20 16:07 Pelger-Huet Anomaly Not Reportable 11/13/20 16:07 Sarmad Rods Not Reportable 11/13/20 16:07 Platelet Estimate Not Reportable 11/13/20 16:07 Clumped Platelets Not Reportable 11/13/20 16:07 Plt Clumps, EDTA Not Reportable 11/13/20 16:07 Large Platelets Not Reportable 11/13/20 16:07 Giant Platelets Not Reportable 11/13/20 16:07 Platelet Satelliting Not Reportable 11/13/20 16:07 Plt Morphology Comment Not Reportable 11/13/20 16:07 RBC Morphology Normal 11/13/20 16:07 Dimorphic RBCs Not Reportable 11/13/20 16:07 Polychromasia Not Reportable 11/13/20 16:07 Hypochromasia Not Reportable 11/13/20 16:07 Poikilocytosis Not Reportable 11/13/20 16:07 Anisocytosis Not Reportable 11/13/20 16:07 Microcytosis Not Reportable 11/13/20 16:07 Macrocytosis Not Reportable 11/13/20 16:07 Spherocytes Not Reportable 11/13/20 16:07 Pappenheimer Bodies Not Reportable 11/13/20 16:07 Sickle Cells Not Reportable 11/13/20 16:07 Target Cells Not Reportable 11/13/20 16:07 Tear Drop Cells Not Reportable 11/13/20 16:07 Ovalocytes Not Reportable 11/13/20 16:07 Helmet Cells Not Reportable 11/13/20 16:07 K[place] Bodies Not Reportable 11/13/20 16:07 Ida Rings Not Reportable 11/13/20 16:07 [place] Cells Not Reportable 11/13/20 16:07 Bite Cells Not Reportable 11/13/20 16:07 Crenated Cell Not Reportable 11/13/20 16:07 Elliptocytes Not Reportable 11/13/20 16:07 Acanthocytes (Spur) Not Reportable 11/13/20 16:07 Rouleaux Not Reportable 11/13/20 16:07 Hemoglobin C Crystals Not Reportable 11/13/20 16:07 Schistocytes Not Reportable 11/13/20 16:07 Malaria parasites Not Reportable 11/13/20 16:07 Martin Bodies Not Reportable 11/13/20 16:07 Hem Pathologist Commnt No 11/13/20 16:07 D-Dimer 5272.39 ng/mlDDU (0-234) H 11/13/20 19:43 VBG pH 7.427 (7.320-7.420) H 11/13/20 19:43 Sodium 129 mmol/L (137-145) L 11/15/20 07:58 Potassium 5.2 mmol/L (3.6-5.0) H 11/15/20 07:58 Chloride 101.7 mmol/L (98-107) 11/15/20 07:58 Carbon Dioxide 16 mmol/L (22-30) L 11/15/20 07:58 Anion Gap 17 mmol/L 11/15/20 07:58 BUN 26 mg/dL (9-20) H 11/15/20 07:58 Creatinine 0.5 mg/dL (0.8-1.3) L 11/15/20 07:58 Estimated GFR > 60 ml/min 11/15/20 07:58 BUN/Creatinine Ratio 52 % 11/15/20 07:58 Glucose 228 mg/dL (75-100) H 11/15/20 07:58 POC Glucose 205 mg/dL (70-105) H 11/16/20 06:35 Ketones Quantitative Small (Negative) 11/13/20 19:43 Lactic Acid 3.00 mmol/L (0.7-2.0) H* 11/14/20 14:26 Calcium 8.5 mg/dL (8.4-10.2) 11/15/20 07:58 Magnesium 2.10 mg/dL (1.7-2.3) 11/13/20 19:43 Ferritin 5737.0 ng/mL (30.0-300.0) H 11/13/20 19:43 Total Bilirubin 0.40 mg/dL (0.1-1.2) 11/15/20 07:58 AST 59 units/L (5-40) H 11/15/20 07:58 ALT 38 units/L (7-56) 11/15/20 07:58 Alkaline Phosphatase 135 units/L (35-129) H 11/15/20 07:58 Lactate Dehydrogenase 1047 units/L (91-180) H 11/13/20 19:43 Total Creatine Kinase 219 units/L (55-170) H 11/13/20 19:43 Troponin T < 0.010 ng/mL (0.00-0.029) 11/13/20 16:07 C-Reactive Protein 7.70 mg/dL (0.00-1.30) H 11/13/20 19:43 NT-Pro-B Natriuret Pep 1862 pg/mL (0-450) H 11/13/20 16:07 Total Protein 6.4 g/dL (6.3-8.2) 11/15/20 07:58 Albumin 2.8 g/dL (3.9-5) L 11/15/20 07:58 Albumin/Globulin Ratio 0.8 % 11/15/20 07:58 Coronavirus (PCR) Positive (Negative) A 11/14/20 08:25 Microbiology: Microbiology 11/13/20 19:43 Peripheral/Venous Blood Culture - Preliminary NO GROWTH AFTER 48 HOURS 11/13/20 19:43 Peripheral/Venous Blood Culture - Preliminary NO GROWTH AFTER 48 HOURS Howell/IV: Voiding Method Toilet Active Medications - Current Medications Current Medications: Generic Name Dose Route Start Last Admin Trade Name Freq PRN Reason Stop Dose Admin Acetaminophen 650 mg 11/13/20 21:53 Acetaminophen 325 Mg Tab PO Q4H PRN Pain MILD(1-3)/Fever >100.5/BRAR Albuterol 2.5 mg 11/13/20 21:53 Albuterol 2.5 Mg/3 Ml Nebu IH Q4HRT PRN Shortness Of Breath Aspirin 81 mg 11/14/20 10:00 11/15/20 12:08 Aspirin 81 Mg Tab Chew PO 81 mg QDAY MARY Administration Atorvastatin Calcium 20 mg 11/13/20 22:00 11/15/20 23:33 Atorvastatin 20 Mg Tab PO 20 mg QHS MARY Administration Clopidogrel Bisulfate 75 mg 11/14/20 10:00 11/15/20 12:07 Clopidogrel 75 Mg Tab PO 75 mg QDAY MARY Administration Dexamethasone 6 mg 11/14/20 10:00 11/15/20 12:07 Dexamethasone 4 Mg/Ml Vial IV 11/22/20 10:01 6 mg DAILY MARY Administration Dextrose 0 ml 11/13/20 21:53 Dextrose 50% In Water (25gm) 50 Ml Syringe IV Q30MIN PRN Hypoglycemia Protocol Enoxaparin Sodium 80 mg 11/14/20 22:00 11/15/20 23:19 Enoxaparin 80 Mg/0.8 Ml Inj SUB-Q 80 mg Q12HR MARY Administration Protocol Famotidine 20 mg 11/13/20 22:00 11/15/20 23:21 Famotidine 20 Mg Tab PO Not Given BID MARY Hydralazine HCl 10 mg 11/13/20 22:14 Hydralazine 20 Mg/1 Ml Inj IV Q6H PRN Blood Pressure Hydromorphone HCl 0.5 mg 11/13/20 21:53 Hydromorphone 1 Mg/1 Ml Inj IV Q3H PRN Pain , Severe (7-10) Ceftriaxone Sodium 2 gm in 100 mls @ 200 mls/hr 11/14/20 10:00 11/15/20 12:45 Rocephin/Ns 2 Gm/100 Ml IV 11/17/20 10:29 200 mls/hr Q24HR MARY Administration Protocol Azithromycin 500 mg in 250 mls @ 250 mls/hr 11/14/20 10:00 11/15/20 12:12 Zithromax/Ns IV 11/17/20 10:59 250 mls/hr Q24HR MARY Administration Protocol Sodium Chloride 1,000 mls @ 75 mls/hr 11/13/20 23:00 Nacl 0.45% 1000 Ml IV DIRECT MARY REMDESIVIR 100 mg/ Sodium 250 mls @ 500 mls/hr 11/15/20 21:00 11/15/20 23:20 Chloride IV 11/18/20 21:29 500 mls/hr Q24HR@2100 MARY Administration Insulin Glargine 20 units 11/14/20 10:30 11/15/20 23:20 Insulin Glargine 100 Units/Ml SUB-Q 20 units BID MARY Administration Insulin Human Lispro 0 unit 11/14/20 00:00 11/16/20 06:39 Insulin Lispro 100 Unit/Ml SUB-Q 4 unit Q6HR MARY Administration Protocol Lisinopril 2.5 mg 11/14/20 10:00 11/15/20 12:08 Lisinopril 5 Mg Tab PO 2.5 mg QDAY MARY Administration Ondansetron HCl 4 mg 11/13/20 21:53 Ondansetron 4 Mg/2 Ml Inj IV Q8H PRN Nausea And Vomiting Oxycodone/Acetaminophen 1 tab 11/13/20 21:53 Oxycodone /Acetaminophen 5-325mg Tab PO Q6H PRN Pain, Moderate (4-6) Sodium Chloride 10 ml 11/13/20 22:00 11/15/20 23:20 Sodium Chloride 0.9% 10 Ml Flush Syringe IV 10 ml BID MARY Administration Sodium Chloride 10 ml 11/13/20 21:53 Sodium Chloride 0.9% 10 Ml Flush Syringe IV PRN PRN LINE FLUSH Sodium Chloride 50 ml 11/14/20 16:00 11/15/20 23:20 Sodium Chloride 0.9% 50 Ml Ivpb IV 11/18/20 21:01 50 ml Q24HR@2100 MARY Administration Spironolactone 25 mg 11/15/20 10:00 11/15/20 12:12 Spironolactone 25 Mg Tab PO Not Given QDAY [facility] Nutrition/Malnutrition Assess - Dietary Evaluation Nutrition/Malnutrition Findings: Nutrition Notes Start: 11/14/20 14:18 Freq: Status: Active Protocol: Document 11/14/20 14:18 YULY (Rec: 11/14/20 14:19 YULY [id number]) Nutrition Notes Need for Assessment generated from: MD Order,Education Initial or Follow up Brief Note Current Diagnosis Coronary Artery Disease, Diabetes,Hypertension,Heart Failure Other Pertinent Diagnosis pneu, COVID PUI Current Diet Cardiac, Consistent CHO Labs/Tests POC BG 412 Subjective/Other Information MD consult for DM edu. Pt on hold in ED. Nutrition Intervention Follow-Up By: 11/16/20 Additional Comments F/u: placement and diet education
[2020-11-16 07:46] LABS: Hematocrit 45.6 % (35.5-45.6); Hemoglobin 15.8 gm/dl (11.8-15.2); Mean Corpuscular HGB Conc 35 % (32-34); Mean Corpuscular Volume 85 fl (84-94); Platelet Count 208 K/mm3 (140-440); Red Blood Count 5.37 M/mm3 (3.65-5.03); Red Cell Distribution Width 13.3 % (13.2-15.2)
[2020-11-16 08:12] LABS: Alanine Aminotransferase 38 units/L (7-56); Albumin 2.9 g/dL (3.9-5); Blood Urea Nitrogen 24 mg/dL (9-20); Calcium 8.5 mg/dL (8.4-10.2); Hemolysis Index 22
[2020-11-16 08:13] LABS: BUN/Creatinine Ratio 48
[2020-11-16] MEDS: LISINOPRIL 5 MG TAB PO SCH (10:46)
[2020-11-16] MEDS: dexAMETHasone 4 MG/ML VIAL IV SCH (10:47)
[2020-11-16] MEDS: ENOXAPARIN 80 MG/0.8 ML INJ SUB-Q SCH ×2 (10:47→21:29)
[2020-11-16] MEDS: INSULIN GLARGINE 100 UNITS/ML SUB-Q SCH ×2 (10:47→21:29)
[2020-11-16] MEDS: CLOPIDOGREL 75 MG TAB PO SCH (10:48)
[2020-11-16] MEDS: cefTRIAXone/NS 2 GM/100 ML 2 GM/100 ML BAG IV SCH (10:48)
[2020-11-16] MEDS: SPIRONOLACTONE 25 MG TAB PO SCH (10:48)
[2020-11-16] MEDS: FAMOTIDINE 20 MG TAB PO SCH ×2 (10:49→21:30)
[2020-11-16] MEDS: AZITHROMYCIN/NS 500 MG/250 ML 500 MG/250 ML BAG IV SCH (10:49)
[2020-11-16] MEDS: ASPIRIN 81 MG TAB CHEW PO SCH (10:49)
--- NOTE | 2020-11-16 14:08 | Progress Note ---
Assessment and Plan Cultures: SARS CoV2 PCR: positive 11/13/2020 blood culture: no growth A/P: 35-year-old male with CAD, HTN, diabetes admitted to the hospital with cough, shortness of breath, fatigue, loss of taste and smell: #Bilateral pneumonia: due to COVID-19. DVT scan negative. #Acute hypoxic respiratory failure: on HFNC oxygen. #CAD, cardiomyopathy #Diabetes mellitus, uncontrolled #Mild leucopenia: resolved Recs: IV/PO Dexamethasone x 10 days continue remdesivir if hypoxia worsens to HFNC >30 lit/min, administer Actemra if available Continue empiric antibiotics for now pending procalcitonin (max 5 days) prophylactic anticoagulation based on d-dimer per hospital protocol ID will sign off. Please reconsult if needed. Chino Larios MD, FACP [facility], [place], [facility] O: [phone] F: [phone] Subjective Date of service: 11/16/20 Interval history: No fever. Remains hypoxic, on oxygen. 10 L/min HFNC. Objective - Exam Narrative Exam: Physical Exam (reviewed in chart to minimize risk of transmission) Constitutional: deferred Head, Ears, Nose: deferred Eyes: deferred Neck: deferred Oral: deferred Cardiovascular: deferred Respiratory: deferred GI: deferred Musculoskeletal: deferred Skin: deferred Hem/Lymphatic: deferred Psych: deferred Neurological: deferred - Constitutional Vitals: Vital Signs Temp Pulse Resp BP Pulse Ox 98.4 F 90 16 120/70 94 11/15/20 21:41 11/16/20 05:20 11/16/20 05:20 11/16/20 10:48 11/16/20 08:29 Temperature -Last 24 Hours Temperature 98.4 F Temperature 97.5 F Temperature 97.8 F - Labs CBC & Chem 7: 11/16/20 06:53 11/16/20 06:53 Labs: Abnormal lab results 11/15/20 11/16/20 11/16/20 Range/Units 23:27 06:35 06:53 WBC (4.5-11.0) K/mm3 RBC (3.65-5.03) M/mm3 Hgb (11.8-15.2) gm/dl MCHC (32-34) % Sodium 135 L (137-145) mmol/L Carbon Dioxide 21 L (22-30) mmol/L BUN 24 H (9-20) mg/dL Creatinine 0.5 L (0.8-1.3) mg/dL Glucose 187 H (75-100) mg/dL POC Glucose 365 H 205 H (70-105) mg/dL AST 43 H (5-40) units/L Alkaline Phosphatase 151 H (35-129) units/L Total Protein 6.2 L (6.3-8.2) g/dL Albumin 2.9 L (3.9-5) g/dL 11/16/20 11/16/20 Range/Units 06:53 12:32 WBC 11.8 H (4.5-11.0) K/mm3 RBC 5.37 H (3.65-5.03) M/mm3 Hgb 15.8 H (11.8-15.2) gm/dl MCHC 35 H (32-34) % Sodium (137-145) mmol/L Carbon Dioxide (22-30) mmol/L BUN (9-20) mg/dL Creatinine (0.8-1.3) mg/dL Glucose (75-100) mg/dL POC Glucose 189 H (70-105) mg/dL AST (5-40) units/L Alkaline Phosphatase (35-129) units/L Total Protein (6.3-8.2) g/dL Albumin (3.9-5) g/dL
[2020-11-16] MEDS: SODIUM CHLORIDE 0.9% 50 ML IVPB IV SCH (21:29)
[2020-11-16] MEDS: REMDESIVIR 100 MG in SODIUM CHLORIDE 0.9% 250ML 250 ML IV SCH (21:29)
[2020-11-17 04:46] LABS: Alanine Aminotransferase 32 units/L (7-56); Albumin 2.8 g/dL (3.9-5); Blood Urea Nitrogen 20 mg/dL (9-20); Calcium 8.4 mg/dL (8.4-10.2); Hemolysis Index 11
[2020-11-17 04:52] LABS: BUN/Creatinine Ratio 40
[2020-11-17] MEDS: INSULIN LISPRO 100 UNIT/ML SUB-Q SCH ×4 (05:15→22:58)
--- NOTE | 2020-11-17 07:29 | Progress Note ---
Assessment and Plan Assessment and plan: 35 years old male with past medical history of ischemic heart disease, CHF with EF of 30 to 35%, non-ST elevation [place] status post stent diabetes hypertension was brought to the hospital because of 3 days of cough, congestion, shortness of breath, malaise, fatigue, weakness, loss of taste and smell. He states he does not believe he has any chronic medical conditions. He states he does not take medications that he is aware of. His symptoms are constant for the past 3 days. They are getting worse. They worsen with physical exertion. They decreased with rest. Positive increase in urinary frequency, positive increase in thirst. Patient complained of generalized body aches. Positive loss of taste and smell. In the emergency room patient is found to have blood glucose of 369 lactic acid of 2.10 bicarb of 16, sodium 125. Chest x-ray shows diffuse bilateral airspace disease. This appearance may reflect infection in the appropriate clinical settings. We are admitting the patient because of hypoxia secondary to Covid pneumonia and hyperglycemia. Med rec is done and advance discharge planning is initiated - Patient Problems (1) Acute respiratory failure with hypoxia Current Visit: Yes Status: Acute Plan to address problem: Admit the patient to the medical telemetry. Oxygen via nasal cannula 3 to per minute. DuoNeb by nebulizer every 4 hours. Rocephin 2 g IV daily and Zithromax 500 mg IV daily. Dexamethasone 6 mg IV daily. We do the blood cultures sputum culture. Follow the Covid PCR and Covid inflammatory marker. Reconsult pulmonary as well as infectious disease evaluation (2) COVID-19 virus infection Current Visit: Yes Status: Acute Plan to address problem: Oxygen via nasal cannula 3 to per minute. DuoNeb by nebulizer every 4 hours. Rocephin 2 g IV daily and Zithromax 500 mg IV daily. Dexamethasone 6 mg IV daily. We do the blood cultures sputum culture. Follow the Covid PCR and Covid inflammatory marker. Reconsult pulmonary as well as infectious disease evaluation (3) Hyperglycemia Current Visit: Yes Status: Acute Plan to address problem: We will put the patient on diabetic diet. Insulin sliding scale with Humalog coverage every 6 hours high dose coverage. Lantus 15 mg subcu every 12 hours. Will consult diabetic education. Recheck CBC BMP in the morning (4) Metabolic acidosis Current Visit: Yes Status: Acute Plan to address problem: We will put the patient on low-dose IV fluid half-normal saline at the rate of 75 cc/h. Rocephin 2 g IV daily and Zithromax 500 mg IV daily. We also put the patient on Humalog sliding scale and Lantus 15 units subcu every 12 hours. Recheck CBC BMP in the morning (5) Ischemic cardiomyopathy Current Visit: Yes Status: Chronic Plan to address problem: Stable. We will monitor the patient closely. We continue the home medication. Aspirin 81 mg, Plavix 75 mg. Lipitor 20 mg. Lisinopril 2.5 mg p.o. daily. We order echocardiogram. Consult cardiology if needed (6) HTN (hypertension) Current Visit: No Status: Chronic Qualifiers: Hypertension type: essential hypertension Plan to address problem: Lisinopril 2.5 mg p.o. daily. Hydralazine 10 mg IV every 6 hours as needed. Metoprolol 25 mg p.o. daily. (7) History of tobacco use Current Visit: No Status: Chronic Plan to address problem: We counseled regarding quitting smoking. (8) DVT prophylaxis Current Visit: Yes Status: Acute Plan to address problem: Heparin 5000 units subcu every 8 hours for DVT prophylaxis. Pepcid 20 mg p.o. twice daily for GI prophylaxis. Patient is a full code. 11/14: Continue current management. Will adjust insulin for better coverage. Patient noted to have increasing gallop placed on full dose anticoagulation. We will continue to monitor sodium for hyponatremia. This could be related to the hypoglycemia and anticipate that it will correct with correction of blood glucose. Continue antibiotics. Will obtain pulmonary consultation to assist with management of this severely ill patient. Prognosis guarded encourage prone positioning while we await Covid testing. 11/15: Continue steroids and remdesivir as initiated by infectious disease. Pulmonary consulted. Continue to encourage prone positioning. Covid test did come back positive this has been discussed with patient. Hyperkalemia we will give a dose of Kayexalate while monitoring blood pressure which remains low at this time. Will decrease blood pressure medications. Continue to monitor renal function and other vital inflammatory markers. 11/16; continue Decadron and remdesivir per ID recommendation. Pulmonary consulted and pending recommendations. Hyperkalemia resolved. Blood pressure within normal limit. Patient was on 10 L of high flow oxygen and titrate oxygen as tolerated. 11/17; continue antibiotics, Decadron and remdesivir per ID recommendation. ID also said order Actemra if available. Patient is currently on 7 L of high flow oxygen. Wean oxygen as tolerated. Continue current management. Patient has hyponatremia and change the patient's diet to regular diet. Monitor BMP in the morning. History Interval history: Patient was seen and evaluated this morning Patient was on 7 L of high flow oxygen Hospitalist Physical - Physical exam Narrative exam: Patient was on 10 L of high flow oxygen.. The patient appeared well nourished and normally developed. Vital signs as documented. Head exam is unremarkable. No scleral icterus . Neck is without jugular venous distension, thyromegaly, or carotid bruits. Lungs decreased breath sounds bilaterally. Cardiac exam reveals regular rate and Rhythm. Abdominal exam reveals normal bowel sounds, nontender, no organomegaly. Extremities are nonedematous and both femoral and pedal pulses are normal. GRE INSTRUCTOR: Alert and oriented 3. No focal weakness. - Constitutional Vitals: Temp Pulse Resp BP Pulse Ox 98.4 F 78 18 132/75 94 11/17/20 04:07 11/17/20 04:07 11/17/20 04:07 11/17/20 04:07 11/17/20 04:07 General appearance: Present: no acute distress, well-nourished HEART Score - HEART Score Troponin: Troponin T < 0.010 ng/mL (0.00-0.029) 11/13/20 16:07 Results - Labs CBC & Chem 7: 11/16/20 06:53 11/17/20 03:09 Labs: Laboratory Last Values WBC 11.8 K/mm3 (4.5-11.0) H 11/16/20 06:53 RBC 5.37 M/mm3 (3.65-5.03) H 11/16/20 06:53 Hgb 15.8 gm/dl (11.8-15.2) H 11/16/20 06:53 Hct 45.6 % (35.5-45.6) 11/16/20 06:53 MCV 85 fl (84-94) 11/16/20 06:53 MCH 30 pg (28-32) 11/16/20 06:53 MCHC 35 % (32-34) H 11/16/20 06:53 RDW 13.3 % (13.2-15.2) 11/16/20 06:53 Plt Count 208 K/mm3 (140-440) 11/16/20 06:53 Lymph % (Auto) 12.2 % (13.4-35.0) L 11/14/20 05:13 [place] % (Auto) 13.0 % (0.0-7.3) H 11/14/20 05:13 Eos % (Auto) 0.0 % (0.0-4.3) 11/14/20 05:13 Baso % (Auto) 0.4 % (0.0-1.8) 11/14/20 05:13 Lymph # (Auto) 0.7 K/mm3 (1.2-5.4) L 11/14/20 05:13 [place] # (Auto) 0.7 K/mm3 (0.0-0.8) 11/14/20 05:13 Eos # (Auto) 0.0 K/mm3 (0.0-0.4) 11/14/20 05:13 Baso # (Auto) 0.0 K/mm3 (0.0-0.1) 11/14/20 05:13 Add Manual Diff Complete 11/13/20 16:07 Total Counted 100 11/13/20 16:07 Seg Neutrophils % 74.4 % (40.0-70.0) H 11/14/20 05:13 Seg Neuts % (Manual) 89.0 % (40.0-70.0) H 11/13/20 16:07 Lymphocytes % (Manual) 7.0 % (13.4-35.0) L 11/13/20 16:07 Monocytes % (Manual) 4.0 % (0.0-7.3) 11/13/20 16:07 Nucleated RBC % Not Reportable 11/13/20 16:07 Seg Neutrophils # 4.2 K/mm3 (1.8-7.7) 11/14/20 05:13 Seg Neutrophils # Man 3.9 K/mm3 (1.8-7.7) 11/13/20 16:07 Band Neutrophils # 0.0 K/mm3 11/13/20 16:07 Lymphocytes # (Manual) 0.3 K/mm3 (1.2-5.4) L 11/13/20 16:07 Abs React Lymphs (Man) 0.0 K/mm3 11/13/20 16:07 Monocytes # (Manual) 0.2 K/mm3 (0.0-0.8) 11/13/20 16:07 Eosinophils # (Manual) 0.0 K/mm3 (0.0-0.4) 11/13/20 16:07 Basophils # (Manual) 0.0 K/mm3 (0.0-0.1) 11/13/20 16:07 Metamyelocytes # 0.0 K/mm3 11/13/20 16:07 Myelocytes # 0.0 K/mm3 11/13/20 16:07 Promyelocytes # 0.0 K/mm3 11/13/20 16:07 Blast Cells # 0.0 K/mm3 11/13/20 16:07 WBC Morphology Not Reportable 11/13/20 16:07 Hypersegmented Neuts Not Reportable 11/13/20 16:07 Hyposegmented Neuts Not Reportable 11/13/20 16:07 Hypogranular Neuts Not Reportable 11/13/20 16:07 Smudge Cells Not Reportable 11/13/20 16:07 Toxic Granulation Not Reportable 11/13/20 16:07 Toxic Vacuolation Not Reportable 11/13/20 16:07 Dohle Bodies Not Reportable 11/13/20 16:07 Pelger-Huet Anomaly Not Reportable 11/13/20 16:07 Sarmad Rods Not Reportable 11/13/20 16:07 Platelet Estimate Not Reportable 11/13/20 16:07 Clumped Platelets Not Reportable 11/13/20 16:07 Plt Clumps, EDTA Not Reportable 11/13/20 16:07 Large Platelets Not Reportable 11/13/20 16:07 Giant Platelets Not Reportable 11/13/20 16:07 Platelet Satelliting Not Reportable 11/13/20 16:07 Plt Morphology Comment Not Reportable 11/13/20 16:07 RBC Morphology Normal 11/13/20 16:07 Dimorphic RBCs Not Reportable 11/13/20 16:07 Polychromasia Not Reportable 11/13/20 16:07 Hypochromasia Not Reportable 11/13/20 16:07 Poikilocytosis Not Reportable 11/13/20 16:07 Anisocytosis Not Reportable 11/13/20 16:07 Microcytosis Not Reportable 11/13/20 16:07 Macrocytosis Not Reportable 11/13/20 16:07 Spherocytes Not Reportable 11/13/20 16:07 Pappenheimer Bodies Not Reportable 11/13/20 16:07 Sickle Cells Not Reportable 11/13/20 16:07 Target Cells Not Reportable 11/13/20 16:07 Tear Drop Cells Not Reportable 11/13/20 16:07 Ovalocytes Not Reportable 11/13/20 16:07 Helmet Cells Not Reportable 11/13/20 16:07 [place] Bodies Not Reportable 11/13/20 16:07 [place] Rings Not Reportable 11/13/20 16:07 [place] Cells Not Reportable 11/13/20 16:07 Bite Cells Not Reportable 11/13/20 16:07 Crenated Cell Not Reportable 11/13/20 16:07 Elliptocytes Not Reportable 11/13/20 16:07 Acanthocytes (Spur) Not Reportable 11/13/20 16:07 Rouleaux Not Reportable 11/13/20 16:07 Hemoglobin C Crystals Not Reportable 11/13/20 16:07 Schistocytes Not Reportable 11/13/20 16:07 Malaria parasites Not Reportable 11/13/20 16:07 [place] Bodies Not Reportable 11/13/20 16:07 Hem Pathologist Commnt No 11/13/20 16:07 D-Dimer 5272.39 ng/mlDDU (0-234) H 11/13/20 19:43 VBG pH 7.427 (7.320-7.420) H 11/13/20 19:43 Sodium 132 mmol/L (137-145) L 11/17/20 03:09 Potassium 4.1 mmol/L (3.6-5.0) 11/17/20 03:09 Chloride 99.3 mmol/L (98-107) 11/17/20 03:09 Carbon Dioxide 21 mmol/L (22-30) L 11/17/20 03:09 Anion Gap 16 mmol/L 11/17/20 03:09 BUN 20 mg/dL (9-20) 11/17/20 03:09 Creatinine 0.5 mg/dL (0.8-1.3) L 11/17/20 03:09 Estimated GFR > 60 ml/min 11/17/20 03:09 BUN/Creatinine Ratio 40 % 11/17/20 03:09 Glucose 237 mg/dL (75-100) H 11/17/20 03:09 POC Glucose 189 mg/dL (70-105) H 11/17/20 05:03 Ketones Quantitative Small (Negative) 11/13/20 19:43 Lactic Acid 3.00 mmol/L (0.7-2.0) H* 11/14/20 14:26 Calcium 8.4 mg/dL (8.4-10.2) 11/17/20 03:09 Magnesium 2.10 mg/dL (1.7-2.3) 11/13/20 19:43 Ferritin 5737.0 ng/mL (30.0-300.0) H 11/13/20 19:43 Total Bilirubin 0.30 mg/dL (0.1-1.2) 11/17/20 03:09 AST 26 units/L (5-40) 11/17/20 03:09 ALT 32 units/L (7-56) 11/17/20 03:09 Alkaline Phosphatase 143 units/L (35-129) H 11/17/20 03:09 Lactate Dehydrogenase 1047 units/L (91-180) H 11/13/20 19:43 Total Creatine Kinase 219 units/L (55-170) H 11/13/20 19:43 Troponin T < 0.010 ng/mL (0.00-0.029) 11/13/20 16:07 C-Reactive Protein 7.70 mg/dL (0.00-1.30) H 11/13/20 19:43 NT-Pro-B Natriuret Pep 1862 pg/mL (0-450) H 11/13/20 16:07 Total Protein 6.5 g/dL (6.3-8.2) 11/17/20 03:09 Albumin 2.8 g/dL (3.9-5) L 11/17/20 03:09 Albumin/Globulin Ratio 0.8 % 11/17/20 03:09 Coronavirus (PCR) Positive (Negative) A 11/14/20 08:25 Microbiology: Microbiology 11/13/20 19:43 Peripheral/Venous Blood Culture - Preliminary NO GROWTH AFTER 72 HOURS 11/13/20 19:43 Peripheral/Venous Blood Culture - Preliminary NO GROWTH AFTER 72 HOURS [place]/IV: Voiding Method Toilet Active Medications - Current Medications Current Medications: Generic Name Dose Route Start Last Admin Trade Name Freq PRN Reason Stop Dose Admin Acetaminophen 650 mg 11/13/20 21:53 Acetaminophen 325 Mg Tab PO Q4H PRN Pain MILD(1-3)/Fever >100.5/BRAR Albuterol 2.5 mg 11/13/20 21:53 Albuterol 2.5 Mg/3 Ml Nebu IH Q4HRT PRN Shortness Of Breath Aspirin 81 mg 11/14/20 10:00 11/16/20 10:49 Aspirin 81 Mg Tab Chew PO 81 mg QDAY MARY Administration Atorvastatin Calcium 20 mg 11/13/20 22:00 11/16/20 21:29 Atorvastatin 20 Mg Tab PO 20 mg QHS MARY Administration Clopidogrel Bisulfate 75 mg 11/14/20 10:00 11/16/20 10:48 Clopidogrel 75 Mg Tab PO 75 mg QDAY MARY Administration Dexamethasone 6 mg 11/17/20 10:00 Dexamethasone 4 Mg Tab PO 11/22/20 12:00 DAILY MARY Dextrose 0 ml 11/13/20 21:53 Dextrose 50% In Water (25gm) 50 Ml Syringe IV Q30MIN PRN Hypoglycemia Protocol Enoxaparin Sodium 80 mg 11/14/20 22:00 11/16/20 21:29 Enoxaparin 80 Mg/0.8 Ml Inj SUB-Q 80 mg Q12HR MARY Administration Protocol Famotidine 20 mg 11/13/20 22:00 11/16/20 21:30 Famotidine 20 Mg Tab PO 20 mg BID MARY Administration Hydralazine HCl 10 mg 11/13/20 22:14 Hydralazine 20 Mg/1 Ml Inj IV Q6H PRN Blood Pressure Hydromorphone HCl 0.5 mg 11/13/20 21:53 Hydromorphone 1 Mg/1 Ml Inj IV Q3H PRN Pain , Severe (7-10) Ceftriaxone Sodium 2 gm in 100 mls @ 200 mls/hr 11/14/20 10:00 11/16/20 10:48 Rocephin/Ns 2 Gm/100 Ml IV 11/17/20 10:29 200 mls/hr Q24HR MARY Administration Protocol Azithromycin 500 mg in 250 mls @ 250 mls/hr 11/14/20 10:00 11/16/20 10:49 Zithromax/Ns IV 11/17/20 10:59 250 mls/hr Q24HR MARY Administration Protocol Sodium Chloride 1,000 mls @ 75 mls/hr 11/13/20 23:00 Nacl 0.45% 1000 Ml IV DIRECT MARY REMDESIVIR 100 mg/ Sodium 250 mls @ 500 mls/hr 11/15/20 21:00 11/16/20 21:29 Chloride IV 11/18/20 21:29 500 mls/hr Q24HR@2100 MARY Administration Insulin Glargine 20 units 11/14/20 10:30 11/16/20 21:29 Insulin Glargine 100 Units/Ml SUB-Q 20 units BID MARY Administration Insulin Human Lispro 0 unit 11/14/20 00:00 11/17/20 05:15 Insulin Lispro 100 Unit/Ml SUB-Q 3 unit Q6HR MARY Administration Protocol Lisinopril 2.5 mg 11/14/20 10:00 11/16/20 10:46 Lisinopril 5 Mg Tab PO 2.5 mg QDAY MARY Administration Ondansetron HCl 4 mg 11/13/20 21:53 Ondansetron 4 Mg/2 Ml Inj IV Q8H PRN Nausea And Vomiting Oxycodone/Acetaminophen 1 tab 11/13/20 21:53 11/17/20 06:34 Oxycodone /Acetaminophen 5-325mg Tab PO 1 tab Q6H PRN Administration Pain, Moderate (4-6) Sodium Chloride 10 ml 11/13/20 22:00 11/16/20 21:30 Sodium Chloride 0.9% 10 Ml Flush Syringe IV 10 ml BID MARY Administration Sodium Chloride 10 ml 11/13/20 21:53 Sodium Chloride 0.9% 10 Ml Flush Syringe IV PRN PRN LINE FLUSH Sodium Chloride 50 ml 11/14/20 16:00 11/16/20 21:29 Sodium Chloride 0.9% 50 Ml Ivpb IV 11/18/20 21:01 50 ml Q24HR@2100 MARY Administration Spironolactone 25 mg 11/15/20 10:00 11/16/20 10:48 Spironolactone 25 Mg Tab PO 25 mg QDAY MARY Administration Nutrition/Malnutrition Assess - Dietary Evaluation Nutrition/Malnutrition Findings: Nutrition Notes Start: 11/14/20 14:18 Freq: Status: Active Protocol: Document 11/16/20 12:27 YULY (Rec: 11/16/20 12:28 YULY [id number]) Nutrition Notes Need for Assessment generated from: MD Order,Education Initial or Follow up Brief Note Subjective/Other Information F/U for education. Pt denied DM education. He states he ate a candy bar then his health declined. Encouraged portion sizes, good food choices and to check BG often. Pt denied handout. Nutrition Intervention Revisit per MD consult or patient Sign Off request:
[2020-11-17] MEDS: DEXAMETHASONE 4 MG TAB PO SCH (09:41)
[2020-11-17] MEDS: INSULIN GLARGINE 100 UNITS/ML SUB-Q SCH ×2 (09:41→22:58)
[2020-11-17] MEDS: FAMOTIDINE 20 MG TAB PO SCH ×2 (09:42→21:18)
[2020-11-17] MEDS: CLOPIDOGREL 75 MG TAB PO SCH (09:42)
[2020-11-17] MEDS: ENOXAPARIN 100 MG/1 ML INJ SUB-Q SCH ×2 (09:42→21:19)
[2020-11-17] MEDS: cefTRIAXone/NS 2 GM/100 ML 2 GM/100 ML BAG IV SCH (09:43)
[2020-11-17] MEDS: AZITHROMYCIN/NS 500 MG/250 ML 500 MG/250 ML BAG IV SCH (09:57)
[2020-11-17] MEDS: ASPIRIN 81 MG TAB CHEW PO SCH (09:57)
[2020-11-17] MEDS: SPIRONOLACTONE 25 MG TAB PO SCH (09:57)
[2020-11-17] MEDS: LISINOPRIL 5 MG TAB PO SCH (09:57)
[2020-11-17] MEDS: SODIUM CHLORIDE 0.9% 50 ML IVPB IV SCH (21:17)
[2020-11-17] MEDS: REMDESIVIR 100 MG in SODIUM CHLORIDE 0.9% 250ML 250 ML IV SCH (21:17)
[2020-11-18 05:29] LABS: Blood Urea Nitrogen 17 mg/dL (9-20); Calcium 8.3 mg/dL (8.4-10.2); Hemolysis Index 1
[2020-11-18 07:00] LABS: BUN/Creatinine Ratio 34
[2020-11-18] MEDS: INSULIN LISPRO 100 UNIT/ML SUB-Q SCH ×4 (07:59→23:51)
[2020-11-18] MEDS: DEXAMETHASONE 4 MG TAB PO SCH (09:21)
[2020-11-18] MEDS: CLOPIDOGREL 75 MG TAB PO SCH (09:21)
[2020-11-18] MEDS: ENOXAPARIN 100 MG/1 ML INJ SUB-Q SCH ×2 (09:21→21:57)
[2020-11-18] MEDS: ASPIRIN 81 MG TAB CHEW PO SCH (09:21)
[2020-11-18] MEDS: FAMOTIDINE 20 MG TAB PO SCH ×2 (09:22→21:58)
[2020-11-18] MEDS: INSULIN GLARGINE 100 UNITS/ML SUB-Q SCH ×2 (09:22→23:52)
[2020-11-18] MEDS: LISINOPRIL 5 MG TAB PO SCH (09:31)
[2020-11-18] MEDS: SPIRONOLACTONE 25 MG TAB PO SCH (09:31)
[2020-11-18 10:30] LABS: C-Reactive Protein 2.2 mg/dL (0.00-1.30)
--- NOTE | 2020-11-18 10:43 | Progress Note ---
Subjective Date of service: 11/18/20 Interval history: 35 years old male with past medical history of ischemic heart disease, CHF with EF of 30 to 35%, non-ST elevation [place] status post stent diabetes hypertension was brought to the hospital because of 3 days of cough, congestion, shortness of breath, malaise, fatigue, weakness, loss of taste and smell. He states he does not believe he has any chronic medical conditions. He states he does not take medications that he is aware of. His symptoms are constant for the past 3 days. They are getting worse. They worsen with physical exertion. They decreased with rest. Positive increase in urinary frequency, positive increase in thirst. Patient complained of generalized body aches. Positive loss of taste and smell. In the emergency room patient is found to have blood glucose of 369 lactic acid of 2.10 bicarb of 16, sodium 125. Chest x-ray shows diffuse bilateral airspace disease. This appearance may reflect infection in the appropriate clinical settings. We are admitting the patient because of hypoxia secondary to Covid pneumonia and hyperglycemia. - Patient Problems (1) Acute respiratory failure with hypoxia Current Visit: Yes Status: Acute Plan to address problem: Improving Patient is now on 4 L via nasal cannula Continue weaning as tolerated (2) COVID-19 virus infection Current Visit: Yes Status: Acute Plan to address problem: Continue remdesivir and Decadron day 4 Antibiotics discontinued as procalcitonin is in the normal Inflammatory markers ordered this morning and shows improvement and trending down D-dimer ordered and result is pending (3) type 2 diabetes on insulin Current Visit: Yes Status: Acute Plan to address problem: Accu-Cheks reviewed Fairly well controlled Continue basal insulin and insulin sliding scale coverage Check A1c (4) Metabolic acidosis Current Visit: Yes Status: Acute Plan to address problem: Resolved Discontinue IV fluids (5) Ischemic cardiomyopathy Current Visit: Yes Status: Chronic Plan to address problem: Continue aspirin 81 mg, Plavix 75 mg. Lipitor 20 mg. Lisinopril 2.5 mg p.o. daily. Continue beta-louise Echocardiogram was done but I am unable to access the results from this computer Discontinue IV fluids (6) HTN (hypertension) Current Visit: No Status: Chronic Qualifiers: Hypertension type: essential hypertension Plan to address problem: Fair (7) History of tobacco use Current Visit: No Status: Chronic Plan to address problem: We counseled regarding quitting smoking. (8) DVT prophylaxis Current Visit: Yes Status: Acute Plan to address problem: Patient is a full code. Continue therapeutic dose of Lovenox as D-dimer is markedly elevated Hyponatremia Monitor electrolytes 11/14: Continue current management. Will adjust insulin for better coverage. Patient noted to have increasing gallop placed on full dose anticoagulation. We will continue to monitor sodium for hyponatremia. This could be related to the hypoglycemia and anticipate that it will correct with correction of blood glucose. Continue antibiotics. Will obtain pulmonary consultation to assist with management of this severely ill patient. Prognosis guarded encourage prone positioning while we await Covid testing. 11/15: Continue steroids and remdesivir as initiated by infectious disease. Pulmonary consulted. Continue to encourage prone positioning. Covid test did come back positive this has been discussed with patient. Hyperkalemia we will give a dose of Kayexalate while monitoring blood pressure which remains low at this time. Will decrease blood pressure medications. Continue to monitor renal function and other vital inflammatory markers. 11/16; continue Decadron and remdesivir per ID recommendation. Pulmonary consulted and pending recommendations. Hyperkalemia resolved. Blood pressure within normal limit. Patient was on 10 L of high flow oxygen and titrate oxygen as tolerated. 11/17; continue antibiotics, Decadron and remdesivir per ID recommendation. ID also said order Actemra if available. Patient is currently on 7 L of high flow oxygen. Wean oxygen as tolerated. Continue current management. Patient has hyponatremia and change the patient's diet to regular diet. Monitor BMP in the morning. 11/18 patient is alert and oriented, complains of persistent dry cough and shortness of breath. Denies fever or chills. Lab results reviewed 12 point review of systems is essentially unremarkable except persistent dry cough and shortness of breath Tolerating weaning and is now on 4 L via nasal cannula Objective - Constitutional Vitals: Vital Signs - 12hr 11/18/20 11/18/20 11/18/20 04:15 09:00 09:31 Temperature 98.5 F Pulse Rate 74 82 Respiratory 18 Rate Blood Pressure 134/88 99/57 O2 Sat by Pulse 93 96 Oximetry General appearance: Present: no acute distress, well-nourished - EENT Eyes: PERRL, EOM intact ENT: hearing intact, clear oral mucosa - Neck Neck: supple, normal ROM - Respiratory Respiratory effort: normal Respiratory: bilateral: CTA - Cardiovascular Rhythm: regular Heart Sounds: Present: S1 & S2 Extremities: No edema - Gastrointestinal General gastrointestinal: Present: soft, non-tender Rectal Exam: deferred - Genitourinary Male genitourinary: deferred - Integumentary Integumentary: clear - Musculoskeletal Musculoskeletal: strength equal bilaterally - Neurologic Neurologic: CNII-XII intact - Psychiatric Psychiatric: appropriate mood/affect - Labs CBC & Chem 7: 11/16/20 06:53 11/18/20 03:02 Labs: Abnormal lab results 11/17/20 11/17/20 11/17/20 Range/Units 11:33 16:29 22:14 Sodium (137-145) mmol/L Creatinine (0.8-1.3) mg/dL Glucose (75-100) mg/dL POC Glucose 224 H 312 H 272 H (70-105) mg/dL Calcium (8.4-10.2) mg/dL Lactate Dehydrogenase (91-180) units/L C-Reactive Protein (0.00-1.30) mg/dL 11/18/20 11/18/20 Range/Units 03:02 09:31 Sodium 132 L (137-145) mmol/L Creatinine 0.5 L (0.8-1.3) mg/dL Glucose 181 H (75-100) mg/dL POC Glucose (70-105) mg/dL Calcium 8.3 L (8.4-10.2) mg/dL Lactate Dehydrogenase 737 H (91-180) units/L C-Reactive Protein 2.20 H (0.00-1.30) mg/dL HEART Score - HEART Score Troponin: Troponin T < 0.010 ng/mL (0.00-0.029) 11/13/20 16:07
[2020-11-18] MEDS: BENZONATATE 100 MG CAP PO SCH ×2 (13:41→21:58)
[2020-11-18] MEDS: guaiFENesin DM 200/20 MG ORAL LIQD 10 ML PO SCH ×3 (13:42→23:53)
--- NOTE | 2020-11-18 15:08 | Cat Scan Report ---
CTA CHEST WITH IV CONTRAST INDICATION: Covid positive and high D-dimer 100 ML OMNI 350 . TECHNIQUE: Axial CT images were obtained through the chest after injection of 100 cc IV contrast. 3 plane MIP re constructions were produced. All CT scans at this location are performed using CT dose reduction for ALARA by means of automated exposure control. COMPARISON: None available. FINDINGS: PULMONARY ARTERIES: Small left upper lobe segmental acute pulmonary embolus images [id number] THORACIC AORTA: No acute abnormality. HEART: Normal. CORONARY ARTERIES: No significant calcification. PLEURA: No pleural effusion. No pneumothorax. LYMPH NODES: No significant adenopathy. LUNGS: Moderate to severe multifocal bilateral streaky and groundglass parenchymal opacities characte ristic for Covid pneumonia ADDITIONAL FINDINGS: None. UPPER ABDOMEN: No acute findings. Dystrophic benign calcification anterior hepatic dome. SKELETAL STRUCTURES: No significant osseous abnormality. IMPRESSION: 1. Small distal segmental left upper lobe PTE 2. Moderate to severe bilateral Covid pneumonia CRITICAL RESULT: Small left upper lobe PTE Time of Discovery (DIRECTOR TRUST/CDT): 2:01 PM Central standard time 08/18/2020 Time of Communication (DIRECTOR TRUST/CDT): 2:05 PM Licensed Practitioner Receiving Report: Nurse Mcerloy Read-Back Performed: Yes. Signer Name: Peter Guillaume MD Signed: 11/18/2020 3:03 PM Workstation Name: [id number]
[2020-11-18] MEDS: REMDESIVIR 100 MG in SODIUM CHLORIDE 0.9% 250ML 250 ML IV SCH (21:57)
[2020-11-18] MEDS: SODIUM CHLORIDE 0.9% 50 ML IVPB IV SCH (21:57)
[2020-11-19] MEDS: guaiFENesin DM 200/20 MG ORAL LIQD 10 ML PO SCH ×4 (04:12→22:24)
[2020-11-19 04:28] LABS: Alanine Aminotransferase 33 units/L (7-56); Albumin 2.8 g/dL (3.9-5); Blood Urea Nitrogen 16 mg/dL (9-20); Calcium 8.7 mg/dL (8.4-10.2); Hemolysis Index 8
[2020-11-19 04:39] LABS: BUN/Creatinine Ratio 40
[2020-11-19] MEDS: BENZONATATE 100 MG CAP PO SCH ×3 (06:42→22:22)
[2020-11-19] MEDS: INSULIN GLARGINE 100 UNITS/ML SUB-Q SCH ×2 (09:23→22:22)
[2020-11-19] MEDS: CLOPIDOGREL 75 MG TAB PO SCH (09:24)
[2020-11-19] MEDS: ENOXAPARIN 100 MG/1 ML INJ SUB-Q SCH (09:24)
[2020-11-19] MEDS: ASPIRIN 81 MG TAB CHEW PO SCH (09:25)
[2020-11-19] MEDS: FAMOTIDINE 20 MG TAB PO SCH ×2 (09:25→22:22)
[2020-11-19] MEDS: LISINOPRIL 5 MG TAB PO SCH (09:25)
[2020-11-19] MEDS: DEXAMETHASONE 4 MG TAB PO SCH (09:25)
[2020-11-19] MEDS: INSULIN LISPRO 100 UNIT/ML SUB-Q SCH ×4 (09:33→22:22)
[2020-11-19] MEDS: SPIRONOLACTONE 25 MG TAB PO SCH (10:19)
--- NOTE | 2020-11-19 12:48 | Progress Note ---
Subjective Date of service: 11/19/20 Interval history: 35 years old male with past medical history of ischemic heart disease, CHF with EF of 30 to 35%, non-ST elevation CA status post stent diabetes hypertension was brought to the hospital because of 3 days of cough, congestion, shortness of breath, malaise, fatigue, weakness, loss of taste and smell. He states he does not believe he has any chronic medical conditions. He states he does not take medications that he is aware of. His symptoms are constant for the past 3 days. They are getting worse. They worsen with physical exertion. They decreased with rest. Positive increase in urinary frequency, positive increase in thirst. Patient complained of generalized body aches. Positive loss of taste and smell. In the emergency room patient is found to have blood glucose of 369 lactic acid of 2.10 bicarb of 16, sodium 125. Chest x-ray shows diffuse bilateral airspace disease. This appearance may reflect infection in the appropriate clinical settings. We are admitting the patient because of hypoxia secondary to Covid pneumonia and hyperglycemia. - Patient Problems (1) Acute respiratory failure with hypoxia Current Visit: Yes Status: Acute Plan to address problem: Improving Patient is now on 4 L via nasal cannula Continue weaning as tolerated (2) COVID-19 virus infection Current Visit: Yes Status: Acute Plan to address problem: Continue remdesivir and Decadron day 5 Antibiotics discontinued as procalcitonin is in the normal Inflammatory markers ordered this morning and shows improvement and trending down D-dimer ordered and result is pending (3) type 2 diabetes on insulin Current Visit: Yes Status: Acute Plan to address problem: Accu-Cheks reviewed Fairly well controlled Continue basal insulin and insulin sliding scale coverage Check A1c (4) Metabolic acidosis Current Visit: Yes Status: Acute Plan to address problem: Resolved Discontinue IV fluids (5) Ischemic cardiomyopathy Current Visit: Yes Status: Chronic Plan to address problem: Continue aspirin 81 mg, Plavix 75 mg. Lipitor 20 mg. Lisinopril 2.5 mg p.o. daily. Continue beta-louise Echocardiogram was done but I am unable to access the results from this computer Discontinue IV fluids (6) HTN (hypertension) Current Visit: No Status: Chronic Qualifiers: Hypertension type: essential hypertension Plan to address problem: Fair Acute PE CTA chest results reviewed Started on subcu Lovenox Discussed with patient about the CTA chest results We will start the patient on Eliquis and discontinue Lovenox (7) History of tobacco use Current Visit: No Status: Chronic Plan to address problem: We counseled regarding quitting smoking. (8) DVT prophylaxis Current Visit: Yes Status: Acute Plan to address problem: Patient is a full code. Continue therapeutic dose of Lovenox as D-dimer is markedly elevated Hyponatremia Monitor electrolytes 11/14: Continue current management. Will adjust insulin for better coverage. Patient noted to have increasing gallop placed on full dose anticoagulation. We will continue to monitor sodium for hyponatremia. This could be related to the hypoglycemia and anticipate that it will correct with correction of blood glucose. Continue antibiotics. Will obtain pulmonary consultation to assist with management of this severely ill patient. Prognosis guarded encourage prone positioning while we await Covid testing. 11/15: Continue steroids and remdesivir as initiated by infectious disease. Pulmonary consulted. Continue to encourage prone positioning. Covid test did come back positive this has been discussed with patient. Hyperkalemia we will give a dose of Kayexalate while monitoring blood pressure which remains low at this time. Will decrease blood pressure medications. Continue to monitor renal function and other vital inflammatory markers. 11/16; continue Decadron and remdesivir per ID recommendation. Pulmonary consulted and pending recommendations. Hyperkalemia resolved. Blood pressure within normal limit. Patient was on 10 L of high flow oxygen and titrate oxygen as tolerated. 11/17; continue antibiotics, Decadron and remdesivir per ID recommendation. ID also said order Actemra if available. Patient is currently on 7 L of high flow oxygen. Wean oxygen as tolerated. Continue current management. Patient has hyponatremia and change the patient's diet to regular diet. Monitor BMP in the morning. 11/18 patient is alert and oriented, complains of persistent dry cough and shortness of breath. Denies fever or chills. Lab results reviewed 11/19 patient is resting in the bed, alert and oriented not in any distress and he offers no specific complaints. CTA chest results reviewed. Lab results reviewed 12 point review of systems is essentially unremarkable except persistent dry cough and shortness of breath Tolerating weaning and is now on 4 L via nasal cannula Objective - Constitutional Vitals: Vital Signs - 12hr 11/19/20 11/19/20 11/19/20 04:27 08:09 09:25 Temperature 98.2 F Pulse Rate 71 Respiratory 18 Rate Blood Pressure 136/86 110/68 O2 Sat by Pulse 94 100 Oximetry 11/19/20 12:12 Temperature Pulse Rate Respiratory Rate Blood Pressure O2 Sat by Pulse 94 Oximetry General appearance: Present: no acute distress - EENT Eyes: PERRL, EOM intact ENT: hearing intact - Neck Neck: supple, normal ROM - Respiratory Respiratory effort: normal Respiratory: bilateral: CTA - Cardiovascular Rhythm: regular Heart Sounds: Present: S1 & S2 Extremities: No edema - Gastrointestinal General gastrointestinal: Present: soft, non-tender Rectal Exam: deferred - Integumentary Integumentary: clear - Musculoskeletal Musculoskeletal: strength equal bilaterally - Neurologic Neurologic: no focal deficits - Psychiatric Psychiatric: appropriate mood/affect - Labs CBC & Chem 7: 11/16/20 06:53 11/19/20 03:22 Labs: Abnormal lab results 11/18/20 11/18/20 11/19/20 Range/Units 15:49 22:50 03:22 Sodium 130 L (137-145) mmol/L Chloride 97.6 L (98-107) mmol/L Creatinine 0.4 L (0.8-1.3) mg/dL Glucose 152 H (75-100) mg/dL POC Glucose 298 H 273 H (70-105) mg/dL Albumin 2.8 L (3.9-5) g/dL 11/19/20 11/19/20 Range/Units 08:02 12:12 Sodium (137-145) mmol/L Chloride (98-107) mmol/L Creatinine (0.8-1.3) mg/dL Glucose (75-100) mg/dL POC Glucose 109 H 254 H (70-105) mg/dL Albumin (3.9-5) g/dL HEART Score - HEART Score Troponin: Troponin T < 0.010 ng/mL (0.00-0.029) 11/13/20 16:07
[2020-11-19] MEDS: APIXABAN 5 MG TAB PO SCH (22:21)
[2020-11-20] MEDS: guaiFENesin DM 200/20 MG ORAL LIQD 10 ML PO SCH ×4 (05:01→23:14)
[2020-11-20] MEDS: BENZONATATE 100 MG CAP PO SCH ×3 (05:01→23:14)
[2020-11-20 06:17] LABS: Hematocrit 45.3 % (35.5-45.6); Hemoglobin 15.4 gm/dl (11.8-15.2); Mean Corpuscular HGB Conc 34 % (32-34); Mean Corpuscular Volume 85 fl (84-94); Platelet Count 343 K/mm3 (140-440); Red Blood Count 5.35 M/mm3 (3.65-5.03); Red Cell Distribution Width 13.5 % (13.2-15.2)
[2020-11-20 06:38] LABS: Alanine Aminotransferase 26 units/L (7-56); Albumin 2.9 g/dL (3.9-5); Blood Urea Nitrogen 19 mg/dL (9-20); Calcium 8.7 mg/dL (8.4-10.2); Hemolysis Index 5
[2020-11-20 06:46] LABS: BUN/Creatinine Ratio 38
--- NOTE | 2020-11-20 09:14 | Progress Note ---
Assessment and Plan Assessment and plan: 35 years old male with past medical history of ischemic heart disease, CHF with EF of 30 to 35%, non-ST elevation CA status post stent diabetes hypertension was brought to the hospital because of 3 days of cough, congestion, shortness of breath, malaise, fatigue, weakness, loss of taste and smell. He states he does not believe he has any chronic medical conditions. He states he does not take medications that he is aware of. His symptoms are constant for the past 3 days. They are getting worse. They worsen with physical exertion. They decreased with rest. Positive increase in urinary frequency, positive increase in thirst. Patient complained of generalized body aches. Positive loss of taste and smell. In the emergency room patient is found to have blood glucose of 369 lactic acid of 2.10 bicarb of 16, sodium 125. Chest x-ray shows diffuse bilateral airspace disease. This appearance may reflect infection in the appropriate clinical settings. We are admitting the patient because of hypoxia secondary to Covid pneumonia and hyperglycemia. - Patient Problems (1) Acute respiratory failure with hypoxia Current Visit: Yes Status: Acute Plan to address problem: Improving Patient is now on 4 L via nasal cannula Continue weaning as tolerated (2) COVID-19 virus infection Current Visit: Yes Status: Acute Plan to address problem: Continue remdesivir and Decadron day 5 Antibiotics discontinued as procalcitonin is in the normal Inflammatory markers ordered this morning and shows improvement and trending down D-dimer ordered and result is pending (3) type 2 diabetes on insulin Current Visit: Yes Status: Acute Plan to address problem: Accu-Cheks reviewed Fairly well controlled Continue basal insulin and insulin sliding scale coverage Check A1c (4) Metabolic acidosis Current Visit: Yes Status: Acute Plan to address problem: Resolved Discontinue IV fluids (5) Ischemic cardiomyopathy Current Visit: Yes Status: Chronic Plan to address problem: Continue aspirin 81 mg, Plavix 75 mg. Lipitor 20 mg. Lisinopril 2.5 mg p.o. daily. Continue beta-louise Echocardiogram was done but I am unable to access the results from this computer Discontinue IV fluids (6) HTN (hypertension) Current Visit: No Status: Chronic Qualifiers: Hypertension type: essential hypertension Plan to address problem: Fair Acute PE CTA chest results reviewed Started on subcu Lovenox Discussed with patient about the CTA chest results We will start the patient on Eliquis and discontinue Lovenox (7) History of tobacco use Current Visit: No Status: Chronic Plan to address problem: We counseled regarding quitting smoking. (8) DVT prophylaxis Current Visit: Yes Status: Acute Plan to address problem: Patient is a full code. Continue therapeutic dose of Lovenox as D-dimer is markedly elevated Hyponatremia Monitor electrolytes 11/14: Continue current management. Will adjust insulin for better coverage. Patient noted to have increasing gallop placed on full dose anticoagulation. We will continue to monitor sodium for hyponatremia. This could be related to the hypoglycemia and anticipate that it will correct with correction of blood glucose. Continue antibiotics. Will obtain pulmonary consultation to assist with management of this severely ill patient. Prognosis guarded encourage prone positioning while we await Covid testing. 11/15: Continue steroids and remdesivir as initiated by infectious disease. Pulmonary consulted. Continue to encourage prone positioning. Covid test did come back positive this has been discussed with patient. Hyperkalemia we will give a dose of Kayexalate while monitoring blood pressure which remains low at this time. Will decrease blood pressure medications. Continue to monitor renal function and other vital inflammatory markers. 11/16; continue Decadron and remdesivir per ID recommendation. Pulmonary consulted and pending recommendations. Hyperkalemia resolved. Blood pressure within normal limit. Patient was on 10 L of high flow oxygen and titrate oxygen as tolerated. 11/17; continue antibiotics, Decadron and remdesivir per ID recommendation. ID also said order Actemra if available. Patient is currently on 7 L of high flow oxygen. Wean oxygen as tolerated. Continue current management. Patient has hyponatremia and change the patient's diet to regular diet. Monitor BMP in the morning. 11/18 patient is alert and oriented, complains of persistent dry cough and shortness of breath. Denies fever or chills. Lab results reviewed 11/19 patient is resting in the bed, alert and oriented not in any distress and he offers no specific complaints. CTA chest results reviewed. Lab results reviewed 11/20: Continue supportive care we will try to wean down to 3 L today and see if patient can be discharged tomorrow may need to go home on home oxygen. Patient is on apixaban due to elevated D-dimer. Continue steroid therapy. 12 point review of systems is essentially unremarkable except persistent dry cough and shortness of breath Tolerating weaning and is now on 4 L via nasal cannula History Interval history: Patient seen and examined today remains with shortness of breath. Continues on 5 L of oxygen this morning and was down to 4 L by the time I saw him. Hospitalist Physical - Physical exam Narrative exam: General appearance: Present: Mild respiratory distress, well-nourished, sitting up - EENT Eyes: Present: PERRL ENT: hearing intact, clear oral mucosa - Neck Neck: Present: supple, normal ROM - Respiratory Respiratory effort: normal Respiratory: bilateral: diminished - Cardiovascular Heart Sounds: Present: S1 & S2. Absent: rub, click - Extremities Extremities: pulses symmetrical, No edema Peripheral Pulses: within normal limits - Abdominal General gastrointestinal: Present: soft, non-tender, non-distended, normal bowel sounds Male genitourinary: Present: normal - Integumentary Integumentary: Present: clear, warm, dry - Musculoskeletal Musculoskeletal: gait normal, strength equal bilaterally - Psychiatric Psychiatric: appropriate mood/affect, intact judgment & insight - Neurologic Neurologic: CNII-XII intact, moves all extremities - Constitutional Vitals: Temp Pulse Resp BP Pulse Ox 98.7 F 77 20 129/81 96 11/20/20 04:56 11/20/20 04:56 11/20/20 04:56 11/20/20 04:56 11/20/20 04:56 General appearance: Present: no acute distress HEART Score - HEART Score Troponin: Troponin T < 0.010 ng/mL (0.00-0.029) 11/13/20 16:07 Results - Labs CBC & Chem 7: 11/20/20 05:33 11/20/20 05:33 Labs: Laboratory Last Values WBC 10.4 K/mm3 (4.5-11.0) 11/20/20 05:33 RBC 5.35 M/mm3 (3.65-5.03) H 11/20/20 05:33 Hgb 15.4 gm/dl (11.8-15.2) H 11/20/20 05:33 Hct 45.3 % (35.5-45.6) 11/20/20 05:33 MCV 85 fl (84-94) 11/20/20 05:33 MCH 29 pg (28-32) 11/20/20 05:33 MCHC 34 % (32-34) 11/20/20 05:33 RDW 13.5 % (13.2-15.2) 11/20/20 05:33 Plt Count 343 K/mm3 (140-440) 11/20/20 05:33 Lymph % (Auto) 12.2 % (13.4-35.0) L 11/14/20 05:13 [place] % (Auto) 13.0 % (0.0-7.3) H 11/14/20 05:13 Eos % (Auto) 0.0 % (0.0-4.3) 11/14/20 05:13 Baso % (Auto) 0.4 % (0.0-1.8) 11/14/20 05:13 Lymph # (Auto) 0.7 K/mm3 (1.2-5.4) L 11/14/20 05:13 [place] # (Auto) 0.7 K/mm3 (0.0-0.8) 11/14/20 05:13 Eos # (Auto) 0.0 K/mm3 (0.0-0.4) 11/14/20 05:13 Baso # (Auto) 0.0 K/mm3 (0.0-0.1) 11/14/20 05:13 Add Manual Diff Complete 11/13/20 16:07 Total Counted 100 11/13/20 16:07 Seg Neutrophils % 74.4 % (40.0-70.0) H 11/14/20 05:13 Seg Neuts % (Manual) 89.0 % (40.0-70.0) H 11/13/20 16:07 Lymphocytes % (Manual) 7.0 % (13.4-35.0) L 11/13/20 16:07 Monocytes % (Manual) 4.0 % (0.0-7.3) 11/13/20 16:07 Nucleated RBC % Not Reportable 11/13/20 16:07 Seg Neutrophils # 4.2 K/mm3 (1.8-7.7) 11/14/20 05:13 Seg Neutrophils # Man 3.9 K/mm3 (1.8-7.7) 11/13/20 16:07 Band Neutrophils # 0.0 K/mm3 11/13/20 16:07 Lymphocytes # (Manual) 0.3 K/mm3 (1.2-5.4) L 11/13/20 16:07 Abs React Lymphs (Man) 0.0 K/mm3 11/13/20 16:07 Monocytes # (Manual) 0.2 K/mm3 (0.0-0.8) 11/13/20 16:07 Eosinophils # (Manual) 0.0 K/mm3 (0.0-0.4) 11/13/20 16:07 Basophils # (Manual) 0.0 K/mm3 (0.0-0.1) 11/13/20 16:07 Metamyelocytes # 0.0 K/mm3 11/13/20 16:07 Myelocytes # 0.0 K/mm3 11/13/20 16:07 Promyelocytes # 0.0 K/mm3 11/13/20 16:07 Blast Cells # 0.0 K/mm3 11/13/20 16:07 WBC Morphology Not Reportable 11/13/20 16:07 Hypersegmented Neuts Not Reportable 11/13/20 16:07 Hyposegmented Neuts Not Reportable 11/13/20 16:07 Hypogranular Neuts Not Reportable 11/13/20 16:07 Smudge Cells Not Reportable 11/13/20 16:07 Toxic Granulation Not Reportable 11/13/20 16:07 Toxic Vacuolation Not Reportable 11/13/20 16:07 Dohle Bodies Not Reportable 11/13/20 16:07 Pelger-Huet Anomaly Not Reportable 11/13/20 16:07 Sarmad Rods Not Reportable 11/13/20 16:07 Platelet Estimate Not Reportable 11/13/20 16:07 Clumped Platelets Not Reportable 11/13/20 16:07 Plt Clumps, EDTA Not Reportable 11/13/20 16:07 Large Platelets Not Reportable 11/13/20 16:07 Giant Platelets Not Reportable 11/13/20 16:07 Platelet Satelliting Not Reportable 11/13/20 16:07 Plt Morphology Comment Not Reportable 11/13/20 16:07 RBC Morphology Normal 11/13/20 16:07 Dimorphic RBCs Not Reportable 11/13/20 16:07 Polychromasia Not Reportable 11/13/20 16:07 Hypochromasia Not Reportable 11/13/20 16:07 Poikilocytosis Not Reportable 11/13/20 16:07 Anisocytosis Not Reportable 11/13/20 16:07 Microcytosis Not Reportable 11/13/20 16:07 Macrocytosis Not Reportable 11/13/20 16:07 Spherocytes Not Reportable 11/13/20 16:07 Pappenheimer Bodies Not Reportable 11/13/20 16:07 Sickle Cells Not Reportable 11/13/20 16:07 Target Cells Not Reportable 11/13/20 16:07 Tear Drop Cells Not Reportable 11/13/20 16:07 Ovalocytes Not Reportable 11/13/20 16:07 Helmet Cells Not Reportable 11/13/20 16:07 [place] Bodies Not Reportable 11/13/20 16:07 Rock Rings Not Reportable 11/13/20 16:07 Drums Cells Not Reportable 11/13/20 16:07 Bite Cells Not Reportable 11/13/20 16:07 Crenated Cell Not Reportable 11/13/20 16:07 Elliptocytes Not Reportable 11/13/20 16:07 Acanthocytes (Spur) Not Reportable 11/13/20 16:07 Rouleaux Not Reportable 11/13/20 16:07 Hemoglobin C Crystals Not Reportable 11/13/20 16:07 Schistocytes Not Reportable 11/13/20 16:07 Malaria parasites Not Reportable 11/13/20 16:07 Martin Bodies Not Reportable 11/13/20 16:07 Hem Pathologist Commnt No 11/13/20 16:07 D-Dimer 1097.49 ng/mlDDU (0-234) H 11/20/20 05:33 VBG pH 7.427 (7.320-7.420) H 11/13/20 19:43 Sodium 132 mmol/L (137-145) L 11/20/20 05:33 Potassium 4.3 mmol/L (3.6-5.0) 11/20/20 05:33 Chloride 96.5 mmol/L (98-107) L 11/20/20 05:33 Carbon Dioxide 27 mmol/L (22-30) 11/20/20 05:33 Anion Gap 13 mmol/L 11/20/20 05:33 BUN 19 mg/dL (9-20) 11/20/20 05:33 Creatinine 0.5 mg/dL (0.8-1.3) L 11/20/20 05:33 Estimated GFR > 60 ml/min 11/20/20 05:33 BUN/Creatinine Ratio 38 % 11/20/20 05:33 Glucose 167 mg/dL (75-100) H 11/20/20 05:33 POC Glucose 155 mg/dL (70-105) H 11/20/20 07:56 Hemoglobin A1c 10.8 % (4-6) H 11/18/20 09:31 Ketones Quantitative Small (Negative) 11/13/20 19:43 Lactic Acid 3.00 mmol/L (0.7-2.0) H* 11/14/20 14:26 Calcium 8.7 mg/dL (8.4-10.2) 11/20/20 05:33 Magnesium 2.10 mg/dL (1.7-2.3) 11/13/20 19:43 Ferritin > 2000.0 ng/mL (30.0-300.0) H 11/18/20 09:31 Total Bilirubin 0.40 mg/dL (0.1-1.2) 11/20/20 05:33 AST 15 units/L (5-40) 11/20/20 05:33 ALT 26 units/L (7-56) 11/20/20 05:33 Alkaline Phosphatase 93 units/L (35-129) 11/20/20 05:33 Lactate Dehydrogenase 588 units/L (91-180) H 11/20/20 05:33 Total Creatine Kinase 219 units/L (55-170) H 11/13/20 19:43 Troponin T < 0.010 ng/mL (0.00-0.029) 11/13/20 16:07 C-Reactive Protein 2.20 mg/dL (0.00-1.30) H 11/18/20 09:31 NT-Pro-B Natriuret Pep 1862 pg/mL (0-450) H 11/13/20 16:07 Total Protein 6.7 g/dL (6.3-8.2) 11/20/20 05:33 Albumin 2.9 g/dL (3.9-5) L 11/20/20 05:33 Albumin/Globulin Ratio 0.8 % 11/20/20 05:33 Procalcitonin 0.47 ng/mL (<0.15) 11/13/20 19:43 Coronavirus (PCR) Positive (Negative) A 11/14/20 08:25 [place]/IV: Voiding Method Toilet Active Medications - Current Medications Current Medications: Generic Name Dose Route Start Last Admin Trade Name Freq PRN Reason Stop Dose Admin Acetaminophen 650 mg 11/13/20 21:53 Acetaminophen 325 Mg Tab PO Q4H PRN Pain MILD(1-3)/Fever >100.5/BRAR Albuterol 2.5 mg 11/13/20 21:53 Albuterol 2.5 Mg/3 Ml Nebu IH Q4HRT PRN Shortness Of Breath Apixaban 10 mg 11/19/20 22:00 11/19/20 22:21 Apixaban 5 Mg Tab PO 11/26/20 10:01 10 mg Q12HR MARY Administration Protocol Apixaban 5 mg 11/26/20 22:00 Apixaban 5 Mg Tab PO Q12HR MARY Aspirin 81 mg 11/14/20 10:00 11/19/20 09:25 Aspirin 81 Mg Tab Chew PO 81 mg QDAY MARY Administration Atorvastatin Calcium 20 mg 11/13/20 22:00 11/19/20 22:22 Atorvastatin 20 Mg Tab PO 20 mg QHS MARY Administration Benzonatate 200 mg 11/18/20 14:00 11/20/20 05:01 Benzonatate 100 Mg Cap PO 11/23/20 13:59 200 mg Q8HR MARY Administration Clopidogrel Bisulfate 75 mg 11/14/20 10:00 11/19/20 09:24 Clopidogrel 75 Mg Tab PO 75 mg QDAY MARY Administration Dexamethasone 6 mg 11/17/20 10:00 11/19/20 09:25 Dexamethasone 4 Mg Tab PO 11/22/20 12:00 6 mg DAILY MARY Administration Dextrose 0 ml 11/13/20 21:53 Dextrose 50% In Water (25gm) 50 Ml Syringe IV Q30MIN PRN Hypoglycemia Protocol Famotidine 20 mg 11/13/20 22:00 11/19/20 22:22 Famotidine 20 Mg Tab PO 20 mg BID MARY Administration Guaifenesin 10 ml 11/18/20 11:00 11/20/20 05:01 Guaifenesin Dm 200/20 Mg Oral Liqd 10 Ml PO 11/23/20 10:59 10 ml Q6H MARY Administration Hydralazine HCl 10 mg 11/13/20 22:14 Hydralazine 20 Mg/1 Ml Inj IV Q6H PRN Blood Pressure Hydromorphone HCl 0.5 mg 11/13/20 21:53 11/17/20 21:20 Hydromorphone 1 Mg/1 Ml Inj IV 0.5 mg Q3H PRN Administration Pain , Severe (7-10) Insulin Glargine 20 units 11/14/20 10:30 11/19/20 22:22 Insulin Glargine 100 Units/Ml SUB-Q 20 units BID MARY Administration Insulin Human Lispro 0 unit 11/17/20 22:00 11/19/20 22:22 Insulin Lispro 100 Unit/Ml SUB-Q 10 unit ACHS MARY Administration Protocol Lisinopril 2.5 mg 11/14/20 10:00 11/19/20 09:25 Lisinopril 5 Mg Tab PO 2.5 mg QDAY MARY Administration Ondansetron HCl 4 mg 11/13/20 21:53 Ondansetron 4 Mg/2 Ml Inj IV Q8H PRN Nausea And Vomiting Oxycodone/Acetaminophen 1 tab 11/13/20 21:53 11/17/20 06:34 Oxycodone /Acetaminophen 5-325mg Tab PO 1 tab Q6H PRN Administration Pain, Moderate (4-6) Sodium Chloride 10 ml 11/13/20 22:00 11/19/20 22:23 Sodium Chloride 0.9% 10 Ml Flush Syringe IV 10 ml BID MARY Administration Sodium Chloride 10 ml 11/13/20 21:53 Sodium Chloride 0.9% 10 Ml Flush Syringe IV PRN PRN LINE FLUSH Spironolactone 25 mg 11/15/20 10:00 11/19/20 10:19 Spironolactone 25 Mg Tab PO 25 mg QDAY MARY Administration Nutrition/Malnutrition Assess - Dietary Evaluation Nutrition/Malnutrition Findings: Nutrition Notes Start: 11/14/20 14:18 Freq: Status: Active Protocol: Document 11/16/20 12:27 YULY (Rec: 11/16/20 12:28 [email or web address]) Nutrition Notes Need for Assessment generated from: MD Order,Education Initial or Follow up Brief Note Subjective/Other Information F/U for education. Pt denied DM education. He states he ate a candy bar then his health declined. Encouraged portion sizes, good food choices and to check BG often. Pt denied handout. Nutrition Intervention Revisit per MD consult or patient Sign Off request:
[2020-11-20] MEDS: FAMOTIDINE 20 MG TAB PO SCH ×2 (09:29→23:13)
[2020-11-20] MEDS: ASPIRIN 81 MG TAB CHEW PO SCH (09:29)
[2020-11-20] MEDS: CLOPIDOGREL 75 MG TAB PO SCH (09:29)
[2020-11-20] MEDS: DEXAMETHASONE 4 MG TAB PO SCH (09:29)
[2020-11-20] MEDS: LISINOPRIL 5 MG TAB PO SCH (09:30)
[2020-11-20] MEDS: APIXABAN 5 MG TAB PO SCH ×2 (09:30→23:14)
[2020-11-20] MEDS: SPIRONOLACTONE 25 MG TAB PO SCH (09:30)
[2020-11-20] MEDS: INSULIN LISPRO 100 UNIT/ML SUB-Q SCH ×4 (09:31→23:15)
[2020-11-20] MEDS: INSULIN GLARGINE 100 UNITS/ML SUB-Q SCH ×2 (09:32→23:13)
[2020-11-21] MEDS: guaiFENesin DM 200/20 MG ORAL LIQD 10 ML PO SCH ×3 (05:06→18:10)
[2020-11-21] MEDS: BENZONATATE 100 MG CAP PO SCH ×2 (05:06→14:02)
[2020-11-21] MEDS: ASPIRIN 81 MG TAB CHEW PO SCH (09:49)
[2020-11-21] MEDS: LISINOPRIL 5 MG TAB PO SCH (09:49)
[2020-11-21] MEDS: SPIRONOLACTONE 25 MG TAB PO SCH (09:50)
[2020-11-21] MEDS: DEXAMETHASONE 4 MG TAB PO SCH (09:50)
[2020-11-21] MEDS: INSULIN GLARGINE 100 UNITS/ML SUB-Q SCH (09:50)
[2020-11-21] MEDS: FAMOTIDINE 20 MG TAB PO SCH (09:50)
[2020-11-21] MEDS: CLOPIDOGREL 75 MG TAB PO SCH (09:51)
[2020-11-21] MEDS: APIXABAN 5 MG TAB PO SCH (09:51)
[2020-11-21] MEDS: INSULIN LISPRO 100 UNIT/ML SUB-Q SCH ×3 (09:52→18:10)
--- NOTE | 2020-11-21 12:30 | Discharge Summary ---
Providers - Providers Date of Admission: 11/14/20 13:06 Attending physician: TAMIKO DAVIS MD 11/13/20 21:53 Consult to Physician [CONS] Routine Comment: Consulting Provider: SAVANA MASON Physician Instructions: Reason For Exam: covid 11/13/20 21:54 Consult to Dietitian/Nutrition [CONS] Routine Physician Instructions: Reason For Exam: Reason for Consult: Diet education 11/13/20 22:14 Consult to Physician [CONS] Routine Comment: Consulting Provider: DARCI CHAPA Physician Instructions: Reason For Exam: COVID-19 positive test (U07.1, COVID-19) with A Primary care physician: TERRA COTTA [employer]OOFER HELPER Hospitalization Reason for admission: Shortness of breath Condition: Serious Hospital course: 35 years old male with past medical history of ischemic heart disease, CHF with EF of 30 to 35%, non-ST elevation OR status post stent diabetes hypertension was brought to the hospital because of 3 days of cough, congestion, shortness of breath, malaise, fatigue, weakness, loss of taste and smell. He states he does not believe he has any chronic medical conditions. He states he does not take medications that he is aware of. His symptoms are constant for the past 3 days. They are getting worse. They worsen with physical exertion. They decreased with rest. Positive increase in urinary frequency, positive increase in thirst. Patient complained of generalized body aches. Positive loss of taste and smell. In the emergency room patient is found to have blood glucose of 369 lactic acid of 2.10 bicarb of 16, sodium 125. Chest x-ray shows diffuse bilateral airspace disease. This appearance may reflect infection in the appropriate clinical settings. We are admitting the patient because of hypoxia secondary to Covid pneumonia and hyperglycemia. - Patient Problems (1) Acute respiratory failure with hypoxia Current Visit: Yes Status: Acute Plan to address problem: Improving Patient is now on 4 L via nasal cannula Continue weaning as tolerated (2) COVID-19 virus infection Current Visit: Yes Status: Acute Plan to address problem: Continue remdesivir and Decadron day 5 Antibiotics discontinued as procalcitonin is in the normal Inflammatory markers ordered this morning and shows improvement and trending down D-dimer ordered and result is pending (3) type 2 diabetes on insulin Current Visit: Yes Status: Acute Plan to address problem: Accu-Cheks reviewed Fairly well controlled Continue basal insulin and insulin sliding scale coverage Check A1c (4) Metabolic acidosis Current Visit: Yes Status: Acute Plan to address problem: Resolved Discontinue IV fluids (5) Ischemic cardiomyopathy Current Visit: Yes Status: Chronic Plan to address problem: Continue aspirin 81 mg, Plavix 75 mg. Lipitor 20 mg. Lisinopril 2.5 mg p.o. daily. Continue beta-louise Echocardiogram was done but I am unable to access the results from this computer Discontinue IV fluids (6) HTN (hypertension) Current Visit: No Status: Chronic Qualifiers: Hypertension type: essential hypertension Plan to address problem: Fair Acute PE CTA chest results reviewed Started on subcu Lovenox Discussed with patient about the CTA chest results We will start the patient on Eliquis and discontinue Lovenox (7) History of tobacco use Current Visit: No Status: Chronic Plan to address problem: We counseled regarding quitting smoking. (8) DVT prophylaxis Current Visit: Yes Status: Acute Plan to address problem: Patient is a full code. Continue therapeutic dose of Lovenox as D-dimer is markedly elevated Hyponatremia Monitor electrolytes 11/14: Continue current management. Will adjust insulin for better coverage. Patient noted to have increasing gallop placed on full dose anticoagulation. We will continue to monitor sodium for hyponatremia. This could be related to the hypoglycemia and anticipate that it will correct with correction of blood glucose. Continue antibiotics. Will obtain pulmonary consultation to assist with management of this severely ill patient. Prognosis guarded encourage prone positioning while we await Covid testing. 11/15: Continue steroids and remdesivir as initiated by infectious disease. Pulmonary consulted. Continue to encourage prone positioning. Covid test did come back positive this has been discussed with patient. Hyperkalemia we will give a dose of Kayexalate while monitoring blood pressure which remains low at this time. Will decrease blood pressure medications. Continue to monitor renal function and other vital inflammatory markers. 11/16; continue Decadron and remdesivir per ID recommendation. Pulmonary consulted and pending recommendations. Hyperkalemia resolved. Blood pressure within normal limit. Patient was on 10 L of high flow oxygen and titrate oxygen as tolerated. 11/17; continue antibiotics, Decadron and remdesivir per ID recommendation. ID also said order Actemra if available. Patient is currently on 7 L of high flow oxygen. Wean oxygen as tolerated. Continue current management. Patient has hyponatremia and change the patient's diet to regular diet. Monitor BMP in the morning. 11/18 patient is alert and oriented, complains of persistent dry cough and shortness of breath. Denies fever or chills. Lab results reviewed 11/19 patient is resting in the bed, alert and oriented not in any distress and he offers no specific complaints. CTA chest results reviewed. Lab results reviewed 11/20: Continue supportive care we will try to wean down to 3 L today and see if patient can be discharged tomorrow may need to go home on home oxygen. Patient is on apixaban due to elevated D-dimer. Continue steroid therapy. 11/21: Patient this morning is doing well down to 2 L of oxygen. Plan is to discharge today with home oxygen. Recommend to continue current management complete steroid therapy at home. 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 He verbalized understanding 12 point review of systems is essentially unremarkable except persistent dry cough and shortness of breath Tolerating weaning and is now on 2 L via nasal cannul Disposition: 01 HOME / SELF CARE / HOMELESS Final Discharge Diagnosis (Prints w/discharge instructions): Acute hypoxic respiratory failure secondary to Covid pneumonia Time spent for discharge: 35 minutes Core Measure Documentation - Palliative Care Palliative Care/ Comfort Measures: Not Applicable - Core Measures Any of the following diagnoses?: none Exam - Physical Exam Narrative exam: General appearance: Present: Resting comfortably, well-nourished, sitting up - EENT Eyes: Present: PERRL ENT: hearing intact, clear oral mucosa - Neck Neck: Present: supple, normal ROM - Respiratory Respiratory effort: normal Respiratory: bilateral: diminished - Cardiovascular Heart Sounds: Present: S1 & S2. Absent: rub, click - Extremities Extremities: pulses symmetrical, No edema Peripheral Pulses: within normal limits - Abdominal General gastrointestinal: Present: soft, non-tender, non-distended, normal bowel sounds Male genitourinary: Present: normal - Integumentary Integumentary: Present: clear, warm, dry - Musculoskeletal Musculoskeletal: gait normal, strength equal bilaterally - Psychiatric Psychiatric: appropriate mood/affect, intact judgment & insight - Neurologic Neurologic: CNII-XII intact, moves all extremities - Constitutional Vitals: Temp Pulse Resp BP Pulse Ox 98.4 F 78 20 110/72 100 11/21/20 04:53 11/21/20 09:50 11/21/20 04:53 11/21/20 09:50 11/21/20 09:49 Plan Activity: advance as tolerated, fall precautions Diet: low fat Special Instructions: restrict fluid intake to (1200cc/day), record daily weights, record daily BP diary, home oxygen via (nasal cannula @ 2 liters per minute) Follow up with: PRIMARY CARE, [Primary Care Provider] - 3-5 Days SLIM AMATO MD [Staff Physician] - 7 Days GERARDO SANCHEZ MD [Staff Physician] - 7 Days Prescriptions: dexAMETHasone [Dexamethasone] 8 mg PO DAILY #6 tablet Apixaban [Eliquis] 5 mg PO Q12HR #60 tablet Famotidine [Pepcid] 20 mg PO BID #30 tablet Benzonatate [Tessalon Perles] 200 mg PO Q8HR #20 capsule Ascorbic Acid [Vitamin C] 1,000 mg PO DAILY #30 tablet Cholecalciferol (Vitamin D3) [Vitamin D3] 5,000 unit PO DAILY #30 tablet Zinc Sulfate 220 mg PO DAILY #30 capsule
[2020-11-21 19:08] VITALS: BP 124/80
[2020-11-26] MEDS ORDERED: APIXABAN 5 MG TAB PO SCH (22:00)
== END 2020-11-21 19:22 | disposition home or self-care (01) | DRG 177 ==
LOC: ED 11:29 → 3A 21:29 → OBSVTOIN 11-14 13:06 → 3A 11-15 15:31
PROVIDERS: ADMIT Hospitalist; ATTEND Internal Medicine
PROC: XW033E5 Introduction of Remdesivir Anti-infective into Peripheral Vein, Percutaneous Approach, New Technology Group 5 (ICD-10-PCS; principal; 2020-11-14)
DX: U07.1 COVID-19 (principal); J96.01 Acute respiratory failure with hypoxia; J12.82 Pneumonia due to coronavirus disease 2019; I26.99 Other pulmonary embolism without acute cor pulmonale; E87.2 Acidosis; E87.1 Hypo-osmolality and hyponatremia; I25.5 Ischemic cardiomyopathy; I50.9 Heart failure, unspecified; E11.65 Type 2 diabetes mellitus with hyperglycemia; I25.10 Atherosclerotic heart disease of native coronary artery without angina pectoris; D72.819 Decreased white blood cell count, unspecified; I95.9 Hypotension, unspecified; E87.5 Hyperkalemia; I11.0 Hypertensive heart disease with heart failure; Z83.3 Family history of diabetes mellitus; Z87.891 Personal history of nicotine dependence; Z82.49 Family history of ischemic heart disease and other diseases of the circulatory system; I25.2 Old myocardial infarction; Z71.6 Tobacco abuse counseling
CPT/HCPCS: 36415; 71046; 71275; 80048; 80053; 82010; 82140; 82550; 82728; 82805; 82947; 82962; 83036; 83615; 83735; 83880; 84145; 84484; 85007; 85025; 85027; 85379; 86140; 87040; 93005; 93306; 93970; 94760; G0378; A9270-GY; J0456; J0696; J1100; J1170; J1650; J1815; J7040; J7050; J8540; Q9967; U0003

== ENCOUNTER 2020-12-21 14:30 | Emergency (ER) | payer OTHER ==
[2020-12-21 15:52] VITALS: BP 131/78
--- NOTE | 2020-12-21 16:48 | Emergency Department Report ---
ED General Adult HPI - General Chief complaint: Dyspnea/Respdistress Stated complaint: check up for his lung/ air tank Time Seen by Provider: 12/21/20 16:19 Source: patient Mode of arrival: Ambulatory Limitations: No Limitations - History of Present Illness Initial comments: Patient presents secondary to concerns for hypoxia and general oxygen check. He was in the hospital 2 months ago and was discharged on oxygen. He has never been told to stop using oxygen. He is having a hard time working with an oxygen tank. He came here today because he would like to see if he is still hypoxic and still needs oxygen. He has no complaints. He denies chest pain. He has no shortness of breath. There is no cough or congestion. There is no vomiting or diarrhea. - Related Data Previous Rx's Medication Instructions Recorded Last Taken Type HYDROcodone/APAP 5-325 [[place] 1 each PO Q6HR PRN #10 tablet 11/17/19 Unknown Rx 5-325 mg TAB] Aspirin [Aspirin BABY CHEW TAB] 81 mg PO QDAY #60 tab.chew 07/20/20 Unknown Rx AtorvaSTATin [Lipitor] 20 mg PO QHS #60 tablet 07/20/20 Unknown Rx Clopidogrel [Plavix] 75 mg PO QDAY #60 tablet 07/20/20 Unknown Rx Insulin NPH Hum/Reg Insulin Hm 15 unit SQ BID #20 ml 07/20/20 Unknown Rx [Novolin 70-30 100 Unit/ml Vial] Metoprolol Xl [Metoprolol 25 mg PO QDAY #60 tablet 07/20/20 Unknown Rx SUCCINATE ER TAB] Spironolactone [Aldactone] 25 mg PO QDAY #60 tablet 07/20/20 Unknown Rx lisinopriL [Zestril TAB] 2.5 mg PO QDAY #60 tablet 07/20/20 Unknown Rx Apixaban [Eliquis] 5 mg PO Q12HR #60 tablet 11/21/20 Unknown Rx Ascorbic Acid [Vitamin C] 1,000 mg PO DAILY #30 tablet 11/21/20 Unknown Rx Benzonatate [Tessalon Perles] 200 mg PO Q8HR #20 capsule 11/21/20 Unknown Rx Cholecalciferol (Vitamin D3) 5,000 unit PO DAILY #30 tablet 11/21/20 Unknown Rx [Vitamin D3] Famotidine [Pepcid] 20 mg PO BID #30 tablet 11/21/20 Unknown Rx Zinc Sulfate 220 mg PO DAILY #30 capsule 11/21/20 Unknown Rx dexAMETHasone [Dexamethasone] 8 mg PO DAILY #6 tablet 11/21/20 Unknown Rx Allergies Allergy/AdvReac Type Severity Reaction Status Date / Time No Known Allergies Allergy Verified 07/18/20 10:26 ED Review of Systems ROS: Stated complaint: check up for his lung/ air tank Other details as noted in HPI Comment: All other systems reviewed and negative Constitutional: denies: fever Eyes: denies: vision change ENT: denies: throat pain Respiratory: denies: cough Cardiovascular: denies: chest pain Endocrine: denies: unexplained weight loss Gastrointestinal: denies: abdominal pain Genitourinary: denies: dysuria Musculoskeletal: denies: back pain Skin: denies: rash Neurological: denies: headache Hematological/Lymphatic: denies: easy bruising ED Past Medical Hx - Past Medical History Previous Medical History?: Yes Hx Hypertension: Yes Hx Congestive Heart Failure: Yes Hx Diabetes: Yes Hx Asthma: No Hx COPD: No Hx HIV: No - Surgical History Past Surgical History?: Yes Hx Coronary Stent: Yes - Family History Family history: diabetes - Social History Smoking Status: Never Smoker - Medications Home Medications: Home Medications Medication Instructions Recorded Confirmed Last Taken Type HYDROcodone/APAP 5-325 [[place] 1 each PO Q6HR PRN #10 tablet 11/17/19 07/18/20 Unknown Rx 5-325 mg TAB] Aspirin [Aspirin BABY CHEW TAB] 81 mg PO QDAY #60 tab.chew 07/20/20 Unknown Rx AtorvaSTATin [Lipitor] 20 mg PO QHS #60 tablet 07/20/20 Unknown Rx Clopidogrel [Plavix] 75 mg PO QDAY #60 tablet 07/20/20 Unknown Rx Insulin NPH Hum/Reg Insulin Hm 15 unit SQ BID #20 ml 07/20/20 Unknown Rx [Novolin 70-30 100 Unit/ml Vial] Metoprolol Xl [Metoprolol 25 mg PO QDAY #60 tablet 07/20/20 Unknown Rx SUCCINATE ER TAB] Spironolactone [Aldactone] 25 mg PO QDAY #60 tablet 07/20/20 Unknown Rx lisinopriL [Zestril TAB] 2.5 mg PO QDAY #60 tablet 07/20/20 Unknown Rx Apixaban [Eliquis] 5 mg PO Q12HR #60 tablet 11/21/20 Unknown Rx Ascorbic Acid [Vitamin C] 1,000 mg PO DAILY #30 tablet 11/21/20 Unknown Rx Benzonatate [Tessalon Perles] 200 mg PO Q8HR #20 capsule 11/21/20 Unknown Rx Cholecalciferol (Vitamin D3) 5,000 unit PO DAILY #30 tablet 11/21/20 Unknown Rx [Vitamin D3] Famotidine [Pepcid] 20 mg PO BID #30 tablet 11/21/20 Unknown Rx Zinc Sulfate 220 mg PO DAILY #30 capsule 11/21/20 Unknown Rx dexAMETHasone [Dexamethasone] 8 mg PO DAILY #6 tablet 11/21/20 Unknown Rx ED Physical Exam - General Limitations: No Limitations, Other (Pulse ox was noted and normal.) General appearance: alert, in no apparent distress - Head Head exam: Present: atraumatic, normocephalic, normal inspection - Eye Eye exam: Present: normal appearance, EOMI. Absent: scleral icterus - ENT ENT exam: Present: normal exam, normal orophraynx, normal external ear exam - Neck Neck exam: Present: normal inspection. Absent: meningismus - Respiratory Respiratory exam: Present: normal lung sounds bilaterally. Absent: respiratory distress - Cardiovascular Cardiovascular Exam: Present: regular rate, normal rhythm - GI/Abdominal GI/Abdominal exam: Present: soft. Absent: tenderness - Extremities Exam Extremities exam: Present: normal capillary refill. Absent: pedal edema - Back Exam Back exam: Absent: CVA tenderness (R), CVA tenderness (L) - Neurological Exam Neurological exam: Present: alert, oriented X3, CN II-XII intact, normal gait. Absent: motor sensory deficit - Psychiatric Psychiatric exam: Present: normal affect, normal mood - Skin Skin exam: Present: warm, dry ED Course Vital Signs 12/21/20 15:48 Temperature 98.8 F Pulse Rate 86 Respiratory 16 Rate Blood Pressure 131/78 [Left] O2 Sat by Pulse 100 Oximetry - Reevaluation(s) Reevaluation #1: 12/21/20 16:42 Patient's oxygen was turned off. After 15 minutes, his pulse ox was 100% on room air. Pulse was 85. I measured this at the bedside. Based on this, patient does not require oxygen therapy. He was told to stop using oxygen and was given an outpatient referral for follow-up. ED Medical Decision Making - Medical Decision Making Patient presents for concerns of hypoxia. He was hoping that he could stop using oxygen so he can get back to his regular work. He was not hypoxic here. Even after being off of oxygen, he was not hypoxic. He was in no distress. Breath sounds were clear. At this time, there is no medical indication that he would need oxygen. He has been instructed to stop it and follow-up. Critical Care Time: No Critical care attestation.: If time is entered above; I have spent that time in minutes in the direct care of this critically ill patient, excluding procedure time. ED Disposition Clinical Impression: Well adult health check Disposition: HOME / SELF CARE / HOMELESS Is pt being admited?: No Condition: Stable Additional Instructions: Follow-up with a regular physician. Stop using oxygen and when she need it. Measure your oxygen at home. Referrals: PRIMARY CAREMD [Referring] - 3-5 Days CLIFF HERNANDES MD [Staff Physician] - 3-5 Days
== END 2020-12-21 17:04 | disposition home or self-care (01) ==
LOC: ED 14:30
DX: Z00.00 Encounter for general adult medical examination without abnormal findings (principal); I10 Essential (primary) hypertension; Z79.899 Other long term (current) drug therapy
CPT/HCPCS: 99282

== ENCOUNTER 2021-01-11 14:25 | Emergency (ER) | payer OTHER ==
[2021-01-11] MEDS ORDERED: ONDANSETRON 4 MG/2 ML INJ IV ONE (16:46)
[2021-01-11] MEDS ORDERED: SODIUM CHLORIDE 0.9% 500 ML 500 ML IV ONE (16:46)
[2021-01-11] MEDS ORDERED: MORPHINE 4 MG/1 ML INJ IV ONE (16:46)
--- NOTE | 2021-01-11 16:50 | Emergency Department Report ---
ED Extremity Problem HPI - General Chief complaint: Extremity Problem,Nontraumatic Stated complaint: PAIN IN LEG Time Seen by Provider: 01/11/21 16:05 Source: patient, old records reviewed Mode of arrival: Ambulatory Limitations: No Limitations - History of Present Illness Initial comments: 35-year-old male with a past medical history of diabetes, CAD status post stent placement, hypertension, and CHF presents to the ER today with complaints of left leg pain from his knee all the way down to his feet as well as swelling. He states that his symptoms started about 2 to 3 days ago. He denies any particular injury. He states that he has not been doing any strenuous activity. On examination of patient's left lower extremity, it is noted to be edematous, and he also has cellulitic changes from mid lower leg and ankles and dorsal feet with a shallow ulceration noted to the plantar aspect of his left foot around the first MTP joint. When asked about the ulceration, patient states that it was a blister about 3 days ago and then it popped. Patient denies any chest pain, shortness of breath, fever or chills. Patient admits that he has been out of his diabetic medications for about a month. He states that he has an appointment with his PCP next month. He states that he was not aware he could call his PCP to get refills on his medications. He reports no additional symptoms at this time. MD Complaint: extremity pain, extremity swelling -: days(s) (2-3) - Related Data Previous Rx's Medication Instructions Recorded Last Taken Type Aspirin [Aspirin BABY CHEW TAB] 81 mg PO QDAY #60 tab.chew 07/20/20 Unknown Rx AtorvaSTATin [Lipitor] 20 mg PO QHS #60 tablet 07/20/20 Unknown Rx Clopidogrel [Plavix] 75 mg PO QDAY #60 tablet 07/20/20 Unknown Rx Metoprolol Xl [Metoprolol 25 mg PO QDAY #60 tablet 07/20/20 Unknown Rx SUCCINATE ER TAB] Spironolactone [Aldactone] 25 mg PO QDAY #60 tablet 07/20/20 Unknown Rx lisinopriL [Zestril TAB] 2.5 mg PO QDAY #60 tablet 07/20/20 Unknown Rx Apixaban [Eliquis] 5 mg PO Q12HR #60 tablet 11/21/20 Unknown Rx Ascorbic Acid [Vitamin C] 1,000 mg PO DAILY #30 tablet 11/21/20 Unknown Rx Benzonatate [Tessalon Perles] 200 mg PO Q8HR #20 capsule 11/21/20 Unknown Rx Cholecalciferol (Vitamin D3) 5,000 unit PO DAILY #30 tablet 11/21/20 Unknown Rx [Vitamin D3] Famotidine [Pepcid] 20 mg PO BID #30 tablet 11/21/20 Unknown Rx Zinc Sulfate 220 mg PO DAILY #30 capsule 11/21/20 Unknown Rx dexAMETHasone [Dexamethasone] 8 mg PO DAILY #6 tablet 11/21/20 Unknown Rx HYDROcodone/APAP 5-325 [Weston 1 each PO Q6HR PRN #10 tablet 01/11/21 Unknown Rx 5-325 mg TAB] Insulin NPH Hum/Reg Insulin Hm 15 unit SQ BID #20 ml 01/11/21 Unknown Rx [Novolin 70-30 100 Unit/ml Vial] Sulfamethoxazole/Trimethoprim 1 each PO BID #14 tablet 01/11/21 Unknown Rx [Bactrim DS TAB] cephALEXin [Keflex] 500 mg PO Q6HR #40 capsule 01/11/21 Unknown Rx Allergies Allergy/AdvReac Type Severity Reaction Status Date / Time No Known Allergies Allergy Verified 07/18/20 10:26 ED Review of Systems ROS: Stated complaint: PAIN IN LEG Other details as noted in HPI Comment: All other systems reviewed and negative Constitutional: denies: chills, fever Eyes: denies: eye pain, eye discharge, vision change ENT: denies: ear pain, throat pain, dental pain, hearing loss, epistaxis, congestion Respiratory: denies: cough, shortness of breath, wheezing Cardiovascular: denies: chest pain, palpitations, dyspnea on exertion, edema, syncope, paroxysmal nocturnal dyspnea Gastrointestinal: denies: abdominal pain, nausea, vomiting, diarrhea, constipat ion, hematemesis, melena Genitourinary: denies: urgency, dysuria, frequency, hematuria, discharge, testicular pain, testicular mass Musculoskeletal: joint swelling, arthralgia, other (Right lower extremity pain and swelling) Skin: other (Ulceration to the plantar left foot) Neurological: denies: headache, weakness, paresthesias, confusion, abnormal gait, vertigo Psychiatric: denies: anxiety, depression, auditory hallucinations, visual hallucinations, homicidal thoughts, suicidal thoughts Hematological/Lymphatic: denies: easy bleeding, easy bruising, swollen glands ED Past Medical Hx - Past Medical History Previous Medical History?: Yes Hx Hypertension: Yes Hx Congestive Heart Failure: Yes Hx Diabetes: Yes Hx Asthma: No Hx COPD: No Hx HIV: No - Surgical History Past Surgical History?: Yes Hx Coronary Stent: Yes - Social History Smoking Status: Never Smoker - Medications Home Medications: Home Medications Medication Instructions Recorded Confirmed Last Taken Type Aspirin [Aspirin BABY CHEW TAB] 81 mg PO QDAY #60 tab.chew 07/20/20 Unknown Rx AtorvaSTATin [Lipitor] 20 mg PO QHS #60 tablet 07/20/20 Unknown Rx Clopidogrel [Plavix] 75 mg PO QDAY #60 tablet 07/20/20 Unknown Rx Metoprolol Xl [Metoprolol 25 mg PO QDAY #60 tablet 07/20/20 Unknown Rx SUCCINATE ER TAB] Spironolactone [Aldactone] 25 mg PO QDAY #60 tablet 07/20/20 Unknown Rx lisinopriL [Zestril TAB] 2.5 mg PO QDAY #60 tablet 07/20/20 Unknown Rx Apixaban [Eliquis] 5 mg PO Q12HR #60 tablet 11/21/20 Unknown Rx Ascorbic Acid [Vitamin C] 1,000 mg PO DAILY #30 tablet 11/21/20 Unknown Rx Benzonatate [Tessalon Perles] 200 mg PO Q8HR #20 capsule 11/21/20 Unknown Rx Cholecalciferol (Vitamin D3) 5,000 unit PO DAILY #30 tablet 11/21/20 Unknown Rx [Vitamin D3] Famotidine [Pepcid] 20 mg PO BID #30 tablet 11/21/20 Unknown Rx Zinc Sulfate 220 mg PO DAILY #30 capsule 11/21/20 Unknown Rx dexAMETHasone [Dexamethasone] 8 mg PO DAILY #6 tablet 11/21/20 Unknown Rx HYDROcodone/APAP 5-325 [Weston 1 each PO Q6HR PRN #10 tablet 01/11/21 Unknown Rx 5-325 mg TAB] Insulin NPH Hum/Reg Insulin Hm 15 unit SQ BID #20 ml 01/11/21 Unknown Rx [Novolin 70-30 100 Unit/ml Vial] Sulfamethoxazole/Trimethoprim 1 each PO BID #14 tablet 01/11/21 Unknown Rx [Bactrim DS TAB] cephALEXin [Keflex] 500 mg PO Q6HR #40 capsule 01/11/21 Unknown Rx ED Physical Exam - General Limitations: No Limitations General appearance: alert, in no apparent distress, other (Disheveled appearing) - Head Head exam: Present: atraumatic, normocephalic, normal inspection - Eye Eye exam: Present: normal appearance, PERRL, EOMI Pupils: Present: normal accommodation - Neck Neck exam: Present: normal inspection, full ROM. Absent: tenderness - Respiratory Respiratory exam: Present: normal lung sounds bilaterally. Absent: respiratory distress, wheezes, rales, rhonchi, stridor - Cardiovascular Cardiovascular Exam: Present: regular rate, normal rhythm, normal heart sounds - Expanded Lower Extremity Exam Left Lower Leg exam: Present: full ROM, tenderness, swelling (1-2+ pitting edema noted to the left lower extremity, ankle and dorsal foot.), erythema (Mild to moderate erythema noted from the mid to lower left lower leg as well as around the ankle mainly on the medial aspect and slightly to the dorsal aspect of the left foot). Absent: abrasion, laceration, ecchymosis, deformity, crepidus, dislocation Ankle exam: Present: full ROM, tenderness, swelling Foot/Toe exam: Present: full ROM, tenderness (Large superficial ulcerated area noted to the plantar aspect of the foot about the first MTP joint with slight surrounding erythema he also has a small superficial area noted to the distal aspect of the fourth toe), swelling, ecchymosis (Toes including the base of the toes slightly ecchymotic), erythema. Absent: laceration, deformity, crepidus, dislocation, amputation, puncture wound, foreign body Neuro vascular tendon exam: Present: no vascular compromise (Normal dorsalis pedis pulse bilateral lower extremity). Absent: abnormal cap refill, motor deficit, sensory deficit, tendon deficit Gait: Positive: not tested/not observed - Neurological Exam Neurological exam: Present: alert, oriented X3, CN II-XII intact, normal gait - Psychiatric Psychiatric exam: Present: normal affect, normal mood - Skin Skin exam: Present: intact ED Course Vital Signs 01/11/21 01/11/21 14:32 21:25 Temperature 99.1 F 98.6 F Pulse Rate 98 H 84 Respiratory 18 20 Rate Blood Pressure 129/73 109/64 O2 Sat by Pulse 94 96 Oximetry ED Medical Decision Making - Lab Data Result diagrams: 01/11/21 17:03 01/11/21 17:03 - Radiology Data Radiology results: report reviewed Patient: MAGO GILLETTE MR#: [id number] : 1985 Acct:[id number] Age/Sex: 35 / M ADM Date: 01/11/21 Loc: ED Attending Dr: Ordering Physician: MARIBEL HOOD Date of Service: 01/11/21 Procedure(s): XR foot 3+V LT Accession Number(s): [id number] cc: MARIBEL HOOD Fluoro Time In Minutes: LEFT FOOT 3 VIEWS 1658 INDICATION: foot pain/cellulitis/ulcer, left lower extremity pain COMPARISON: None available. FINDINGS: No fractures or dislocations are seen. No significant arthritic schmidt es are noted. No bony erosions are seen. No soft tissue gas is noted. No foreign bodies are identified. A projecting soft tissue density dorsally in the distal phalanx of the great toe possibly a skin tag. Signer Name: Johny Rodriguez MD Signed: 01/11/2021 5:08 PM Workstation Name: [id number] Transcribed By: GJ Dictated By: Johny Rodriguez MD Electronically Authenticated By: Johny Rodriguez MD Signed Date/Time: 01/11/211707 DD/ 04 TD/TT: - Medical Decision Making All labs reviewed -all labs reviewed without any critical findings at this time. He has x-ray of his foot shows no acute bony injury or concern for bony infection. No foreign body or soft tissue gas. Venous Doppler negative for DVT. Repeat vital signs are stable. Patient is currently resting comfortably in the chair. He is not in any significant distress. He is not toxic or ill- appearing. Patient physical findings concerning for left lower extremity cellulitis. No evidence of acute arterial occlusion or compartment syndrome at this time. Patient has no complaints of chest pain or shortness of breath. Discussed case with Dr Chaney, and given that patient is afebrile, with no significant abnormal lab findings, no DVT or significant x-ray findings, patient can be discharged home with a trial of outpatient treatment for his left lower extremity cellulitis. Discussed all results with patient. Patient has very poor historian when it comes to his medical history and patient appears to be noncompliant with any of his medications. Stressed to the patient the importance of taking the antibiotics for the infection to his foot, and following up with the liquid fertilizer servicer and also his PCP soon at his scheduled appointment in January. Patient will get a refill on his insulin, but I recommend that he follows up with his PCP and his interactive marketing strategist for refill management and refills of his other medications. Patient expressed understa nding of all instructions, he understands if at any point his symptoms worsens to return to the ER. Patient was stable at time of discharge Critical care attestation.: If time is entered above; I have spent that time in minutes in the direct care of this critically ill patient, excluding procedure time. ED Disposition Clinical Impression: Diabetic foot ulcer, Left leg cellulitis Disposition: HOME / SELF CARE / HOMELESS Is pt being admited?: No Does the pt Need Aspirin: No Condition: Stable Instructions: Diabetes Mellitus and Foot Care, Cellulitis, Adult, [id number], Diabetes Mellitus Type 2 in Adults (ED) Additional Instructions: It is important that you take the antibiotic as prescribed to completion. Take the hydrocodone as prescribed to help with any pain. Keep the area on the bottom of your foot clean and dry. You can apply a thin layer of Neosporin aft er each cleaning. Elevate your leg as often as possible to help with swelling. It is important that you follow-up with the liquid fertilizer servicer listed on your discharge instructions. I also recommend that you try to follow-up with your PCP sooner than January, try to make an appointment for next week. It is important that you remain compliant with your medications include your diabetic medication. Refill for diabetic medication will be given to you today. Return to the ER if your leg appears to be getting worse despite taking antibiotics with development of fever or chills or any additional or worsening symptoms. Prescriptions: Sulfamethoxazole/Trimethoprim [Bactrim DS TAB] 1 each PO BID #14 tablet cephALEXin [Keflex] 500 mg PO Q6HR #40 capsule HYDROcodone/APAP 5-325 [Weston 5-325 mg TAB] 1 each PO Q6HR PRN #10 tablet PRN Reason: Pain Insulin NPH Hum/Reg Insulin Hm [Novolin 70-30 100 Unit/ml Vial] 15 unit SQ BID #20 ml Referrals: [facility] HEARD DPM [Staff Physician] - 3-5 Days PRIMARY CARE, [Referring] - 3-5 Days Time of Disposition: 21:28
--- NOTE | 2021-01-11 17:13 | XRay Report ---
LEFT FOOT 3 VIEWS 1658 INDICATION: foot pain/cellulitis/ulcer, left lower extremity pain COMPARISON: None available. FINDINGS: No fractures or dislocations are seen. No significant arthritic changes are noted. No bony erosions are seen. No soft tissue gas is noted. No foreign bodies are identified. A projecting soft t issue density dorsally in the distal phalanx of the great toe possibly a skin tag. Signer Name: Johny Rodriguez MD Signed: 01/11/2021 5:08 PM Workstation Name: [id number]
[2021-01-11 17:34] LABS: Basophils # (Auto) 0.1 K/mm3 (0.0-0.1); Basophils % (Auto) 0.8 % (0.0-1.8); Eosinophils # (Auto) 0.2 K/mm3 (0.0-0.4); Eosinophils % (Auto) 1.5 % (0.0-4.3); Hematocrit 37.1 % (35.5-45.6); Hemoglobin 12.4 gm/dl (11.8-15.2); Lymphocytes # (Auto) 1.5 K/mm3 (1.2-5.4); Mean Corpuscular HGB Conc 34 % (32-34); Mean Corpuscular Volume 88 fl (84-94); Monocytes # (Auto) 0.9 K/mm3 (0.0-0.8); Monocytes % (Auto) 7.8 % (0.0-7.3); Platelet Count 271 K/mm3 (140-440); Red Blood Count 4.22 M/mm3 (3.65-5.03); Red Cell Distribution Width 15.3 % (13.2-15.2)
[2021-01-11 17:51] LABS: Alanine Aminotransferase 51 units/L (7-56); Albumin 3.6 g/dL (3.9-5); Blood Urea Nitrogen 14 mg/dL (9-20); Calcium 9.1 mg/dL (8.4-10.2); Hemolysis Index 1
[2021-01-11 17:52] LABS: BUN/Creatinine Ratio 20
[2021-01-11 21:27] VITALS: BP 109/64
--- NOTE | 2021-01-14 07:49 | Vascular Lab Report ---
DUPLEX DOPPLER LOWER EXTREMITY VEINS, LEFT INDICATION / CLINICAL INFORMATION: Left lower ext swelling/pain/redness TECHNIQUE: Duplex doppler imaging was performed through the veins of the left lower extremity using v enous compression and other maneuvers. COMPARISON: None available. FINDINGS: COMMON FEMORAL VEIN: Negative. SUPERFICIAL FEMORAL VEIN: Negative. POPLITEAL VEIN: Negative. CALF VEINS: Negative. ADDITIONAL FINDINGS: Diffuse soft tissue swelling is seen. Mildly prominent but benign-appearing lymp h node is seen in the left inguinal area with a large fatty hilum. IMPRESSION: No sonographic evidence for DVT Signer Name: Johny Rodriguez MD Signed: 01/11/2021 6:59 PM Workstation Name: [id number]
== END 2021-01-11 22:02 | disposition home or self-care (01) ==
LOC: ED 14:25
DX: E11.621 Type 2 diabetes mellitus with foot ulcer (principal); L97.429 Non-pressure chronic ulcer of left heel and midfoot with unspecified severity; L03.116 Cellulitis of left lower limb; I11.0 Hypertensive heart disease with heart failure; I50.9 Heart failure, unspecified; Z98.890 Other specified postprocedural states
CPT/HCPCS: 36415; 73630; 80053; 82140; 83880; 85025; 87040; 93971; 96374; 96375; 99284; J2270; J2405; J7040